=== PATIENT | male | born 1975 | race Caucasian/White ===

== ENCOUNTER 2017-03-04 10:29 | Inpatient (IN) | payer OTHER ==
--- NOTE | 2017-03-04 10:51 | PDOC ---
History of Present Illness - History of Present Illness Initial Comments: 03/04/17 11:14 The patient is a 42 year old male, with no significant past medical history, who presents to the emergency department from PCP office for hypertension and lower extremity edema today. The patient reports he is breathing fine, however , his family member at bedside states his chest is moving very fast. He denies chest pain, shortness of breath, headache and dizziness. He denies fever, chills, nausea, vomit, diarrhea and constipation. He denies dysuria, frequency, urgency and hematuria. Allergies: amoxicillin Social history: Pt denies toxic habits PCP - Dr. Nation <Lucia Herrera - Last Filed: 03/04/17 11:56> <Alisa Welch - Last Filed: 03/06/17 17:26> - General Chief Complaint: Blood Pressure Problem Stated Complaint: BLOOD PRESSURE PROBLEM Time Seen by Provider: 03/04/17 10:46 Past History <Lucia Herrera - Last Filed: 03/04/17 11:56> - Past Medical History Anemia: No Asthma: No Cancer: No Cardiac Disorders: No CVA: No COPD: No CHF: No Dementia: No Diabetes: No GI Disorders: No Disorders: No HTN: No Hypercholesterolemia: No Liver Disease: No Suicide Attempt (Hx): No Seizures: No Thyroid Disease: No - Surgical History Abdominal Surgery: No Appendectomy: No Cardiac Surgery: No Cholecystectomy: No Lung Surgery: No Neurologic Surgery: No Orthopedic Surgery: Yes (LIGAMENTS REPAIRED) - Psycho/Social/Smoking Cessation Hx Suicidal Ideation: No Smoking Status: No Smoking History: Never smoked Have you smoked in the past 12 months: No Number of Cigarettes Smoked Daily: 0 Hx Alcohol Use: No Drug/Substance Use Hx: No Substance Use Type: None <Alisa Welch - Last Filed: 03/06/17 17:26> - Past Medical History Allergies/Adverse Reactions: Allergies Allergy/AdvReac Type Severity Reaction Status Date / Time amoxicillin Allergy Verified 03/04/17 10:59 Home Medications: Ambulatory Orders NK [No Known Home Medication] 03/04/17 Review of Systems - Review of Systems Able to Perform ROS?: Yes Comments:: 03/04/17 11:15 GENERAL/CONSTITUTIONAL: No fever or chills. No weakness. HEAD, EYES, EARS, NOSE AND THROAT: No change in vision. No ear pain or discharge. No sore throat. CARDIOVASCULAR: (+) hypertensive. No chest pain or shortness of breath. RESPIRATORY: No cough, wheezing, or hemoptysis. GASTROINTESTINAL: No nausea, vomiting, diarrhea or constipation. GENITOURINARY: No dysuria, frequency, or change in urination. MUSCULOSKELETAL: No joint or muscle swelling or pain. No neck or back pain. SKIN: No rash NEUROLOGIC: No headache, vertigo, loss of consciousness, or change in strength/ sensation. ENDOCRINE: No increased thirst. No abnormal weight change. HEMATOLOGIC/LYMPHATIC: (+) lower extremity edema. No anemia, easy bleeding, or history of blood clots. ALLERGIC/IMMUNOLOGIC: No hives or skin allergy. <Lucia Herrera - Last Filed: 03/04/17 11:56> *Physical Exam - Vital Signs Last Vital Signs Temp Pulse Resp BP Pulse Ox 111 H 24 204/121 100 03/04/17 10:42 03/04/17 10:42 03/04/17 10:42 03/04/17 10:42 <Lucia Herrera - Last Filed: 03/04/17 11:56> - Vital Signs Last Vital Signs Temp Pulse Resp BP Pulse Ox 111 H 24 204/121 100 03/04/17 10:42 03/04/17 10:42 03/04/17 10:42 03/04/17 10:42 - Physical Exam Comments: GENERAL: Awake, alert, and fully oriented, in no acute distress HEAD: No signs of trauma EYES: PERRLA, EOMI, sclera anicteric, conjunctiva clear ENT: Auricles normal inspection, hearing grossly normal, nares patent, oropharynx clear without exudates. Moist mucosa NECK: Normal ROM, supple, no lymphadenopathy, JVD, or masses LUNGS: +Tachypnea. Breath sounds equal, clear to auscultation bilaterally. HEART: Tachycardic with regular rhythm, normal S1 and S2, no murmurs, rubs or gallops ABDOMEN: Soft, nontender, normoactive bowel sounds. No guarding, no rebound. No masses EXTREMITIES: Normal range of motion, 3+ pitting edema to BLE, to level of genitalia. No clubbing or cyanosis. No cords, erythema, or tenderness NEUROLOGICAL: Cranial nerves II through XII grossly intact. Normal speech, normal gait SKIN: Warm, Dry, normal turgor, no rashes or lesions noted. <Alisa Welch - Last Filed: 03/06/17 17:26> ED Treatment Course - LABORATORY CBC & Chemistry Diagram: 03/04/17 11:10 03/04/17 11:10 <Lucia Herrera - Last Filed: 03/04/17 11:56> - LABORATORY CBC & Chemistry Diagram: 03/05/17 06:00 03/06/17 05:35 <Alisa Welch - Last Filed: 03/06/17 17:26> Medical Decision Making - Medical Decision Making 03/04/17 11:56 Dr. Joann Huber was paged at the office requesting a doctor to doctor consult. I have been informed Dr. Jessenia Abraham is covering and will return the call. Dr. Jessenia Abraham returned the call at 11:58, the patient's case was discussed, and she accepts admission for patient's PCP Dr. Nation. <Lucia Herrera - Last Filed: 03/04/17 11:56> - Medical Decision Making Pt with history of HTN but questionable compliance with medication. Now presents with peripheral edema up to the groin. D/w Dr. Abraham. Patient is not in distress, vitals stable. I have started him on lasix. Stable for admission to med/surg. <Alisa Welch - Last Filed: 03/06/17 17:26> *DC/Admit/Observation/Transfer - Attestations Scribe Attestion: 03/04/17 11:16 Documentation prepared by Lucia Herrera, acting as medical billing coordinator for Alisa Welch MD <Lucia Herrera - Last Filed: 03/04/17 11:56> - Discharge Dispostion Admit: Yes <Alisa Welch - Last Filed: 03/06/17 17:26> Diagnosis at time of Disposition: Heart failure Qualifiers: Heart failure type: unspecified heart failure type Heart failure chronicity: unspecified heart failure chronicity Qualified Code(s): I50.9 - Heart failure, unspecified - Discharge Dispostion Condition at time of disposition: Stable - Referrals
[2017-03-04] MEDS ORDERED: FUROSEMIDE 40 MG/4 ML INJECTABLE VIAL IVPUSH ONE (11:04)
[2017-03-04] MEDS ORDERED: FUROSEMIDE 40 MG/4 ML INJECTABLE VIAL ONE (11:18)
[2017-03-04 11:25] LABS: BASOPHIL 0.5 % (0-2.0); EOSINOPHIL 0.1 % (0-4.5); MCH 30.4 pg (25.7-33.7); MCHC 32.9 g/dl (32.0-35.9); MEAN CELL VOLUME 92.2 fl (80-96); MEAN PLT VOLUME 8.8 fl (7.5-11.1); NEUTROPHILS 85.6 % (42.8-82.8); PLATELET COUNT 200 K/MM3 (134-434); RDW 14.8 % (11.9-15.9); WHITE BLOOD COUNT 10.4 K/mm3 (4.0-10.0)
[2017-03-04 11:42] LABS: ALBUMIN 3.3 g/dl (3.4-5.0); ANION GAP 7 (8-16); BILIRUBIN,TOTAL 1.2 mg/dL (0.2-1.0); CALCIUM 8.7 mg/dL (8.5-10.1); CO2 31 mmol/L (21-32); GLUCOSE,RANDOM 122 mg/dL (74-106); SGOT/AST 34 U/L (15-37); SGPT/ALT 44 U/L (12-78); TOT PROT 6.7 g/dl (6.4-8.2)
[2017-03-04 11:45] LABS: ALK PHOS 101 U/L (45-117); TROPONIN I 0.02 ng/ml (0.00-0.05)
[2017-03-04 11:48] LABS: URINE APPEARANCE CLEAR; URINE BILIRUBIN NEGATIVE (NEGATIVE); URINE BLOOD NEGATIVE (NEGATIVE); URINE COLOR COLORLESS; URINE GLUCOSE (UA) NEGATIVE (NEGATIVE); URINE KETONE NEGATIVE (NEGATIVE); URINE LEUK ESTERASE NEGATIVE (NEGATIVE); URINE NITRITE NEGATIVE (NEGATIVE); URINE UROBILINOGEN NEGATIVE mg/dL (0.2-1.0)
[2017-03-04 11:50] LABS: URINE PROTEIN 1+ (NEGATIVE)
[2017-03-04] MEDS ORDERED: LABETALOL HCL 5 MG/1 ML (100MG/20 ML VIAL) IVPUSH ONE (11:59)
--- NOTE | 2017-03-04 12:00 | HP ---
Admitting History and Physical - Primary Care Physician PCP: Clint Nation - Admission Chief Complaint: HTN urgency History of Present Illness: ER HISTORY - History of Present Illness Initial Comments: 03/04/17 11:14 The patient is a 42 year old male, with no significant past medical history, who presents to the emergency department from PCP office for hypertension and lower extremity edema today. The patient reports he is breathing fine, however , his family member at bedside states his chest is moving very fast. He denies chest pain, shortness of breath, headache and dizziness. He denies fever, chills, nausea, vomit, diarrhea and constipation. He denies dysuria, frequency, urgency and hematuria. Allergies: amoxicillin Social history: Pt denies toxic habits PCP - Dr. Nation Pt examined by me in the ER Mother at his side Pt lives with his mother. Went to see his PMD- DR Nation today who sent him here for HTN urgency and lower extremities edema. Pt admits that he gets SOB when he climbs stairs, no orthopnea or PND. I spoke with his PMD-- apparently had seen him 2014 for elevated BP and pt had seen a radiation protection technician in [facility]- Dr Juarez, was on Carvedilol and Lisinopril at that time and has not been on meds for the last 6 months because he " felt fine" No headaches, visual disturbances, chest pain History Source: Patient, Family Member, Medical Record Limitations to Obtaining History: No Limitations - Past Medical History Cardiovascular: Yes: HTN - Smoking History Smoking history: Never smoked Have you smoked in the past 12 months: No Aproximately how many cigarettes per day: 0 - Alcohol/Substance Use Hx Alcohol Use: No Home Medications - Allergies Allergies/Adverse Reactions: Allergies Allergy/AdvReac Type Severity Reaction Status Date / Time amoxicillin Allergy Verified 03/04/17 10:59 - Home Medications Home Medications: Ambulatory Orders NK [No Known Home Medication] 03/04/17 Review of Systems - Review of Systems Constitutional: denies: Chills, Fever, Loss of Appetite, Weakness Cardiovascular: reports: Edema, Shortness of Breath. denies: Chest Pain, Palpitations Respiratory: reports: Exercise Intolerance, SOB on Exertion. denies: Cough, Hemoptysis, Orthopnea, PND Neurological: denies: Dizziness, Headache Physical Examination Vital Signs: Vital Signs Temperature Pulse Rate 111 H 03/04/17 10:42 Respiratory Rate 24 03/04/17 10:42 Blood Pressure 204/121 03/04/17 10:42 O2 Sat by Pulse Oximetry (%) 100 03/04/17 11:24 Constitutional: Yes: No Distress, Calm Cardiovascular: Yes: Regular Rate and Rhythm, Gallop. No: JVD Respiratory: Yes: CTA Bilaterally Gastrointestinal: Yes: Normal Bowel Sounds, Soft, Abdomen, Obese. No: Distention, Tenderness Renal/: Yes: Scrotal Edema Edema: Yes Edema: LLE: 3+, RLE: 3+ Psychiatric: Yes: Alert, Oriented Labs: CBC, BMP 03/04/17 11:10 03/04/17 11:10 Imaging - Results Chest X-ray: Image Reviewed (clear, no congestion) EKG: Image Reviewed (Sinus tachycardia, LAFB) Problem List - Problems (1) Heart failure Code(s): I50.9 - HEART FAILURE, UNSPECIFIED Qualifiers: Heart failure type: unspecified heart failure type Heart failure chronicity: unspecified heart failure chronicity Qualified Code(s): I50.9 - Heart failure, unspecified (2) Hypertensive urgency Code(s): I16.0 - HYPERTENSIVE URGENCY (3) Noncompliance Code(s): Z91.19 - PATIENT'S NONCOMPLIANCE W OTH MEDICAL TREATMENT AND REGIMEN Assessment/Plan PLAN pt known to be non -compliant per PMD Received IV lasix in ER and IV labetolol Start Toprol and enalapril Monitor BP IV lasix daily, check I and o and daily weights Cardiology evaluation Echo ordered Pt had previous admission here in 2011 for similar reasons- had a nuclear stress test - no ischemia spoke with ER attending Time spent 40 min
[2017-03-04 12:01] LABS: INR 1.13 (0.82-1.09); PROTHROMBIN TIME (PATIENT) 12.5 SEC (9.98-11.88)
[2017-03-04 12:15] LABS: URINE WBC <1 /hpf (3-5)
[2017-03-04] MEDS ORDERED: LABETALOL HCL 5 MG/1 ML (200MG/40ML VIAL) IVPB ONE (12:26)
[2017-03-04 13:02] VITALS: BMI 29.2
--- NOTE | 2017-03-04 13:02 | EKG ---
Test Reason : Blood Pressure : / mmHG Vent. Rate : 107 BPM Atrial Rate : 107 BPM P-R Int : 142 ms QRS Dur : 138 ms QT Int : 384 ms P-R-T Axes : 041 056 001 degrees QTc Int : 512 ms SINUS TACHYCARDIA POSSIBLE LEFT ATRIAL ENLARGEMENT NON-SPECIFIC INTRA-VENTRICULAR CONDUCTION BLOCK CANNOT RULE OUT SEPTAL INFARCT , AGE UNDETERMINED ABNORMAL ECG WHEN COMPARED WITH ECG OF 07-APR-2012 11:47, [place] INTERVAL HAS INCREASED NON-SPECIFIC INTRA-VENTRICULAR CONDUCTION BLOCK HAS REPLACED RIGHT BUNDLE BRANCH BLOCK MINIMAL CRITERIA FOR SEPTAL INFARCT ARE NOW PRESENT Confirmed by JADA BARBOSA MD ([id number]) on 03/04/2017 1:01:51 PM Referred By: Confirmed By:JADA BARBOSA MD
[2017-03-04] MEDS ORDERED: ENALAPRIL MALEATE 10 MG TABLET (FP) PO SCH (13:12)
--- NOTE | 2017-03-04 16:09 | CON.CARD ---
Consult Consult Specialty:: Cardiology Referred by:: Dr. Abraham Reason for Consultation:: CHF and HTN - History of Present Illness Chief Complaint: Increased edema and CASPER x 2 weeks History of Present Illness: 42M w/ PMH HTN, non-compliant, presented to PMD office today w/ 2 weeks CASPER and b/l LE edema and was referred to ER. Denies chest pain, PND, orthopnea. 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 CXR read as "normal" but on my read he has cardiomegaly w/ mild increased PVC. He was given IV Labetalol and IV Lasix in ER. - History Source History Provided By: Patient, Medical Record Limitations to Obtaining History: Other (history obtained in Urdu) - Past Medical History Cardio/Vascular: Yes: HTN, Other ("heart murmur") Gastrointestinal: No: Ascites, Cancer, Constipation, Crohn's Disease, Diverticulitis, Diverticulosis, Esophageal Varices, Gastritis, GERD, GI Bleed, Hemorrhoids, Hiatal Hernia, Inflamatory Bowel Disease, Irritable Bowel Disease, Pancreatitis, Peptic Ulcer Disease, Ulcerative Colitis, Other Renal/: No: Renal Failure, Renal Inusuff, BPH, Cancer, Hematuria, Hemodialysis , Neurogenic Bladder, Renal Calculi, UTI, Other Heme/Onc: No: Anemia, B12 Deficiency, Bleeding Disorder, Cancer, Current Chemotherapy, Current Radiation Therapy, Hemochromatosis, Hypercoaguable State, Myeloproliferative Synd, Sickle Cell Disease, Sickle Cell Trait, Thrombocytopenia, Other Infectious Disease: No: AIDS, C-Diff, Herpes Zoster, HIV, MRSA, STD's, Tuberculosis, VREF, Other Psych: No: Addictions, Anxiety, Bipolar, Depression, Panic, Psychosis, Schizophrenia, Other Musculoskeletal: No: Bursitis, Chronic low back pain, Hemiparesis, Hemiplegia, Osteoarthritis, Paraplegia, Other Rheumatology: No: Fibromyalgia, Gout, Lupus, Rheumatoid Arthritis, Sarcoidosis, Vasculitis, Other Endocrine: No: [place]'s Disease, Curtis's Disease, Diabetes Insipidus, Diabetes Mellitus, Hyperparathyroidism, Hyperthyroidism, Hypothyroidism, Osteopenia, SIADH, Other Dermatology: No: Basal Cell, Cellulitis, Eczema, Melanoma, Psoriasis, Squamous Cell, Other - Alcohol/Substance Use Hx Alcohol Use: No - Smoking History Smoking history: Never smoked Have you smoked in the past 12 months: No Aproximately how many cigarettes per day: 0 - Social History Usual Living Arrangement: Other (with family) History of Recent Travel: No Home Medications - Allergies Allergies/Adverse Reactions: Allergies Allergy/AdvReac Type Severity Reaction Status Date / Time amoxicillin Allergy Verified 03/04/17 10:59 - Home Medications Home Medications: Ambulatory Orders NK [No Known Home Medication] 03/04/17 Family Disease History - Family Disease History Family History: Unremarkable (not pertinent to this presentation) Review of Systems Findings/Remarks: see HPI - Review of Systems Constitutional: denies: No Symptoms, Chills, Diaphoresis, Fever, Lethargy, Loss of Appetite, Malaise, Night Sweats, Unintentional Wgt. Loss, Weakness, Other Eyes: denies: No Symptoms, Blind Spots, Blurred Vision, Double Vision, Eye Pain , Floaters, Photophobia, Recent Change in Vision, Other HENT: denies: No Symptoms, Difficult Swallowing, Ear Discharge, Ear Pain, Epistaxis, Gingival Bleeding, Hearing Loss, Mouth Swelling, Nasal Congestion, Ocular Prosthesis, Throat Pain, Toothache, Ringing in Ears, Other Neck: denies: No Symptoms, Decreased ROM, Lumps, Pain on Movement, Stiffness, Swollen Glands, Tenderness, Other Cardiovascular: reports: Edema, Shortness of Breath Respiratory: denies: No Symptoms, Cough, Exercise Intolerance, Hemoptysis, Orthopnea, PND, Snoring, SOB, SOB on Exertion, Wheezing, Other Gastrointestinal: denies: No Symptoms, Abdominal Pain, Bloating, Constipation, Diarrhea, Dysphagia, Indigestion, Melena, Nausea, Rectal Bleeding, Vomiting, Vomiting Blood, Other Genitourinary: denies: No Symptoms, Burning, Discharge, Dysuria, Flank Pain, Frequency, Hematuria, Incontinence, Lesions, Menses, Pain, Testicular Mass, Testicular Pain, Testicular Swelling, Urgency, Vaginal Bleeding, Other Breasts: denies: No Symptoms Reported, See HPI, Breast Implants, Discharge from Nipple, Lumps, Pain, Skin Changes, Other Musculoskeletal: denies: No Symptoms, Back Pain, Crepitus, Decreased ROM, Extremity Pain, Joint Pain, Joint Swelling, Muscle Pain, Muscle Cramps, Muscle Weakness, Other Integumentary: denies: No Symptoms, Blister, Bruising, Change in Color, Eczema, Erythema, Incision, Lesions, Lump, Pallor, Pruritis, Rash, Wound, Other Neurological: denies: No Symptoms, Change in LOC, Change in Speech, Confusion, Dizziness, Headache, Incoordination, Numbness, Parasthesia, Pre-Existing Deficit , Seizure, Syncope, Tremors, Unsteady Gait, Weakness, Other Endocrine: denies: No Symptoms, Excessive Sweating, Flushing, Increased Hunger, Increased Thirst, Intolerance to Cold, Intolerance to Heat, Unexplained Weight Gain, Unexplained Weight Loss, Other Psychiatric: denies: No Symptoms, Altered Sleep Pattern, Anxiety, Depression, Hallucinations, Panic, Paranoia, Suicidal, Other Vital Signs: Vital Signs Temperature 97.7 F 03/04/17 13:44 Pulse Rate 93 H 03/04/17 13:44 Respiratory Rate 20 03/04/17 13:44 Blood Pressure 159/107 03/04/17 13:44 O2 Sat by Pulse Oximetry (%) 97 03/04/17 12:39 Constitutional: Yes: No Distress, Calm Eyes: Yes: Conjunctiva Clear, EOM Intact HENT: Yes: Atraumatic, Normocephalic Neck: Yes: Supple, Trachea Midline Respiratory: Yes: CTA Bilaterally Gastrointestinal: Yes: Soft JVD: No Carotid Bruit: No PMI: Non-Displaced Heart Sounds: Yes: S1, S2 (regular) Murmur: Yes: Systolic Murmur (2/6 RSB) Edema: Yes Edema: RUE: 2+, LLE: 2+ Peripheral Pulses WNL: Yes Neurological: Yes: Alert, Oriented ...Motor Strength: WNL Psychiatric: Yes: WNL - Other Data Labs, Other Data: INR, PTT INR 1.13 (0.82-1.09) 03/04/17 11:10 Laboratory Tests 03/04/17 03/04/17 11:10 11:10 WBC 10.4 H RBC 4.70 Hgb 14.3 Hct 43.3 MCV 92.2 Plt Count 200 Neutrophils % 85.6 H D Sodium 140 Potassium 3.8 Chloride 102 Carbon Dioxide 31 Anion Gap 7 L BUN 20 H D Creatinine 1.0 Creat Clearance w eGFR > 60 Random Glucose 122 H D Calcium 8.7 Total Bilirubin 1.2 H AST 34 D ALT 44 D Alkaline Phosphatase 101 D Creatine Kinase 101 Troponin I 0.02 B-Natriuretic Peptide 5221.64 H Total Protein 6.[address] at 107bpm, RBBB RBBB old, seen in 2012. Had echo and nuclear stress test here in 2012 reviewed in EMR: normal. Echo: Pending Imaging - Results X-ray: Image Reviewed EKG: Image Reviewed Problem List - Problems (1) Heart failure Code(s): I50.9 - HEART FAILURE, UNSPECIFIED Qualifiers: Heart failure type: unspecified heart failure type Heart failure chronicity: unspecified heart failure chronicity Qualified Code(s): I50.9 - Heart failure, unspecified (2) Hypertensive urgency Code(s): I16.0 - HYPERTENSIVE URGENCY (3) Noncompliance Code(s): Z91.19 - PATIENT'S NONCOMPLIANCE W OTH MEDICAL TREATMENT AND REGIMEN Assessment/Plan IMP: Hypertensive urgency in setting medication non-adherence Acute on chronic diastolic CHF, probably due to uncontrolled HTN RBBB, chronic Murmur REC: 1. Hypertensive urgency: -Agree w/ initiation of Toprol and WHITNEY-I with titration as needed for goal BP 140/90 2. Suspected Acute on Chronic Diastolic CHF:due to elevated BP -Echo -BP control -Lasix 40mg IV daily, with daily monitoring of electrolytes and renal function -Repeat stress test when euvolemic and BP controlled 3. RBBB: -Chronic, seen on ECG 2011. -Echo 4. Murmur: -For echo to evaluate severity of valve disease Thanks.
[2017-03-05] MEDS ORDERED: METOPROLOL SUCCINATE 25 MG TAB.SR.24H (FP) PO ONE (06:00)
[2017-03-05 07:30] LABS: MCH 30.3 pg (25.7-33.7); MEAN CELL VOLUME 91.7 fl (80-96); MEAN PLT VOLUME 8.8 fl (7.5-11.1); PLATELET COUNT 193 K/MM3 (134-434); WHITE BLOOD COUNT 7.7 K/mm3 (4.0-10.0)
[2017-03-05 07:46] LABS: ALBUMIN 2.8 g/dl (3.4-5.0); ALK PHOS 69 U/L (45-117); ANION GAP 10 (8-16); BILIRUBIN,TOTAL 1.4 mg/dL (0.2-1.0); CALCIUM 8.5 mg/dL (8.5-10.1); CHOLESTEROL 139 mg/dL (50-200); CO2 28 mmol/L (21-32); CREATININE 0.9 mg/dL (0.7-1.3); GLUCOSE,RANDOM 98 mg/dL (74-106); SGOT/AST 30 U/L (15-37); SGPT/ALT 37 U/L (12-78); TOT PROT 5.7 g/dl (6.4-8.2)
[2017-03-05 08:05] LABS: LDL CHOLESTEROL (ONLY SJRH) 76 mg/dL (5-100)
[2017-03-05 08:11] LABS: THYROID STIMULATING HORMONE 1.42 uIU/ml (0.358-3.74)
--- NOTE | 2017-03-05 08:27 | PN ---
Progress Note, Physician Chief Complaint: Feeling "better" Echo: Now with severe LV dysfunction, moderate AR, Moderate to severe MR (all new from 2012) BP remains markedly elevated. - Current Medication List Current Medications: Active Medications Enalapril Maleate (Vasotec -) 10 mg PO DAILY [facility] Furosemide (Lasix Injection -) 40 mg IVPB DAILY [facility] Metoprolol Succinate (Toprol Xl -) 25 mg PO DAILY [facility] - Objective Vital Signs: Vital Signs Temperature 98.4 F 03/05/17 05:58 Pulse Rate 106 H 03/05/17 05:58 Respiratory Rate 20 03/05/17 05:58 Blood Pressure 179/119 03/05/17 05:58 O2 Sat by Pulse Oximetry (%) 96 03/04/17 21:00 Constitutional: Yes: No Distress, Calm Eyes: Yes: Conjunctiva Clear Cardiovascular: Yes: Regular Rate and Rhythm Respiratory: Yes: Other (slight decreased breath sounds at bases.) Gastrointestinal: Yes: Soft Edema: Yes Edema: LLE: 1+, RLE: 1+ Neurological: Yes: Alert, Oriented ...Motor Strength: WNL Labs: CBC, BMP 03/05/17 06:00 03/05/17 06:00 INR, PTT INR 1.13 (0.82-1.09) 03/04/17 11:10 Selected Entries 03/04/17 03/05/17 03/05/17 22:00 01:45 05:58 Blood Pressure 166/108 166/108 179/119 Laboratory Tests 03/05/17 03/05/17 06:00 06:00 WBC 7.7 Hgb 13.1 Plt Count 193 Sodium 144 Potassium 3.8 BUN 17 Creatinine 0.9 AST 30 Total LDL Cholesterol 76 D Problem List - Problems (1) Heart failure Code(s): I50.9 - HEART FAILURE, UNSPECIFIED Qualifiers: Heart failure type: unspecified heart failure type Heart failure chronicity: unspecified heart failure chronicity Qualified Code(s): I50.9 - Heart failure, unspecified (2) Hypertensive urgency Code(s): I16.0 - HYPERTENSIVE URGENCY (3) Noncompliance Code(s): Z91.19 - PATIENT'S NONCOMPLIANCE W OTH MEDICAL TREATMENT AND REGIMEN Assessment/Plan IMP: Hypertensive urgency in setting medication non-adherence Acute on chronic diastolic CHF, probably due to uncontrolled HTN RBBB, chronic Murmur REC: 1. Hypertensive urgency: blood pressure remains elevated above goal -In light of decompensated CHF and newly found severe LV dysfunction (likely due to uncontrolled chronic HTN), will hold off on titrating beta aleena until more euvolemic -Increase enalapril to 10mg BID 2. Acute on chronic systolic CHF: newly found severe LV dysfx -BP control, will titrate Enalapril -Lasix 40mg IV daily, with daily monitoring of electrolytes and renal function -Repeat stress test when euvolemic and BP controlled -Transfer to telemetry (CHF, LV dysfx, moderate to severe MR) 3. RBBB: -Chronic, seen on ECG 2011. -Echo 4. Murmur: newly found moderate to severe MR and cardiomyopathy -MR severity may be overestimated in this volume overloaded, hypertensive state -Should be repeated when BP controlled and euvolemic as it may improve with optimized hemodynamics.
[2017-03-05] MEDS: ENALAPRIL MALEATE 10 MG TABLET (FP) PO SCH ×2 (09:08→21:26)
[2017-03-05] MEDS: FUROSEMIDE 40 MG/4 ML INJECTABLE VIAL IVPB SCH (09:08)
[2017-03-05 09:44] LABS: MAGNESIUM 1.8 mg/dL (1.8-2.4)
[2017-03-05] MEDS ORDERED: ENALAPRIL MALEATE 10 MG TABLET (FP) PO SCH (10:00)
[2017-03-05] MEDS ORDERED: METOPROLOL SUCCINATE 25 MG TAB.SR.24H (FP) PO SCH (10:00)
[2017-03-05] MEDS ORDERED: POTASSIUM CHLORIDE TABS 20 MEQ TABLET.ER (FP) PO SCH (10:00)
--- NOTE | 2017-03-05 11:50 | PN ---
Progress Note, Physician Chief Complaint: no distress has a dry cough no SOB - Current Medication List Current Medications: Active Medications Amlodipine Besylate (Norvasc -) 5 mg PO DAILY [facility] Enalapril Maleate (Vasotec -) 10 mg PO BID [facility] Last Admin: 03/05/17 09:08 Dose: 10 mg Furosemide (Lasix Injection -) 40 mg IVPB DAILY [facility] Last Admin: 03/05/17 09:08 Dose: 40 mg Metoprolol Succinate (Toprol Xl -) 25 mg PO DAILY [facility] Last Admin: 03/05/17 09:08 Dose: 25 mg Potassium Chloride (K-Dur -) 20 meq PO DAILY [facility] Last Admin: 03/05/17 09:08 Dose: 20 meq - Objective Vital Signs: Vital Signs Temperature 98.2 F 03/05/17 09:00 Pulse Rate 101 H 03/05/17 11:05 Respiratory Rate 18 03/05/17 09:00 Blood Pressure 165/119 03/05/17 11:05 O2 Sat by Pulse Oximetry (%) 97 03/05/17 09:00 Constitutional: Yes: No Distress, Calm Cardiovascular: Yes: Regular Rate and Rhythm, Gallop Respiratory: Yes: CTA Bilaterally Gastrointestinal: Yes: Normal Bowel Sounds, Soft, Abdomen, Obese. No: Distention, Tenderness Edema: Yes Edema: LLE: 2+, RLE: 2+ Labs: CBC, BMP 03/05/17 06:00 03/05/17 06:00 INR, PTT INR 1.13 (0.82-1.09) 03/04/17 11:10 Problem List - Problems (1) Heart failure Code(s): I50.9 - HEART FAILURE, UNSPECIFIED Qualifiers: Heart failure type: unspecified heart failure type Heart failure chronicity: unspecified heart failure chronicity Qualified Code(s): I50.9 - Heart failure, unspecified (2) Hypertensive urgency Code(s): I16.0 - HYPERTENSIVE URGENCY (3) Noncompliance Code(s): Z91.19 - PATIENT'S NONCOMPLIANCE W OTH MEDICAL TREATMENT AND REGIMEN (4) Mitral regurgitation Code(s): I34.0 - NONRHEUMATIC MITRAL (VALVE) INSUFFICIENCY Assessment/Plan PLAN pt known to be non -compliant per PMD Echo noted spoke with Dr Barriga BP meds increased , Norvasc added Will need telemetry continue with IV lasix
[2017-03-05] MEDS: amLODIPine BESYLATE 5 MG TABLET (FP) PO SCH (11:59)
[2017-03-05] MEDS: MAGNESIUM OXIDE 400 MG TABLET (FP) PO SCH ×2 (13:29→21:26)
[2017-03-05] MEDS: hydrALAZINE HCL 10 MG TABLET PO PRN ×2 (13:29→21:26)
--- NOTE | 2017-03-06 08:25 | PN ---
Progress Note, Physician Chief Complaint: no complaints No chest pain, headache, SOB TELE: NSR. BP remains elevated - Current Medication List Current Medications: Active Medications Amlodipine Besylate (Norvasc -) 5 mg PO DAILY [facility] Last Admin: 03/05/17 11:59 Dose: 5 mg Enalapril Maleate (Vasotec -) 10 mg PO BID [facility] Last Admin: 03/05/17 21:26 Dose: 10 mg Enoxaparin Sodium (Lovenox -) 40 mg SQ DAILY [facility] Furosemide (Lasix Injection -) 40 mg IVPB DAILY [facility] Last Admin: 03/05/17 09:08 Dose: 40 mg Hydralazine HCl (Apresoline -) 10 mg PO TID PRN PRN Reason: HYPERTENSION Last Admin: 03/05/17 21:26 Dose: 10 mg Magnesium Oxide (Mag-Ox -) 400 mg PO BID [facility] Last Admin: 03/05/17 21:26 Dose: 400 mg Metoprolol Succinate (Toprol Xl -) 25 mg PO DAILY [facility] Last Admin: 03/05/17 09:08 Dose: 25 mg Potassium Chloride (K-Dur -) 20 meq PO DAILY [facility] Last Admin: 03/05/17 09:08 Dose: 20 meq - Objective Vital Signs: Vital Signs Temperature 97.3 F L 03/06/17 06:00 Pulse Rate 74 03/06/17 06:00 Respiratory Rate 20 03/06/17 06:00 Blood Pressure 163/101 03/06/17 06:00 O2 Sat by Pulse Oximetry (%) 99 03/05/17 21:00 Constitutional: Yes: No Distress, Calm Eyes: Yes: Conjunctiva Clear, EOM Intact Neck: Yes: Supple Cardiovascular: Yes: Regular Rate and Rhythm, S4 Respiratory: Yes: CTA Bilaterally Gastrointestinal: Yes: Soft Edema: Yes Edema: LLE: 1+, RLE: 1+ Neurological: Yes: Alert, Oriented ...Motor Strength: WNL Labs: CBC, BMP 03/05/17 06:00 INR, PTT INR 1.13 (0.82-1.09) 03/04/17 11:10 Laboratory Tests 03/06/17 05:35 Sodium Pending Potassium Pending Chloride Pending BUN Pending Creatinine Pending Magnesium Pending - ....Imaging Other: Image Reviewed Problem List - Problems (1) Heart failure Code(s): I50.9 - HEART FAILURE, UNSPECIFIED Qualifiers: Heart failure type: unspecified heart failure type Heart failure chronicity: unspecified heart failure chronicity Qualified Code(s): I50.9 - Heart failure, unspecified (2) Hypertensive urgency Code(s): I16.0 - HYPERTENSIVE URGENCY (3) Noncompliance Code(s): Z91.19 - PATIENT'S NONCOMPLIANCE W OTH MEDICAL TREATMENT AND REGIMEN Assessment/Plan IMP: Hypertensive urgency in setting medication non-adherence Acute on chronic diastolic CHF, probably due to uncontrolled HTN RBBB, chronic Murmur REC: 1. Hypertensive urgency: blood pressure remains elevated above goal -Switch Toprol to Coreg, has added alpha effect. Titrate as BP and heart rate allow. -Add Aldactone, d/c K+ suppliment. -Continue enalapril to 10mg BID -Will also add low dose hydralazine 10mg BID with hold parameters for further afterload reduction. 2. Acute on chronic systolic CHF: newly found severe LV dysfx -Continue Enalapril. Adding Aldactone. Switching Toprol to Coreg. -Lasix 40mg IV daily, with daily monitoring of electrolytes and renal function -Repeat stress test when euvolemic and BP controlled -Telemetry in last 24 hours NSR. 3. RBBB: -Chronic, seen on ECG 2011. -No further work up needed, will observe on tele while being actively diuresed. 4. Murmur: newly found moderate to severe MR and cardiomyopathy -MR severity may be overestimated in this volume overloaded, hypertensive state -Should be repeated when BP controlled and euvolemic as it may improve with optimized hemodynamics. -Adding Aldactone and hydralazine for more aggressive BP control and afterload reduction to help diurese.
[2017-03-06 08:30] LABS: ANION GAP 8 (8-16); CALCIUM 8.6 mg/dL (8.5-10.1); CO2 32 mmol/L (21-32); GLUCOSE,RANDOM 86 mg/dL (74-106); MAGNESIUM 2.2 mg/dL (1.8-2.4)
[2017-03-06 08:33] LABS: CREATININE 0.9 mg/dL (0.7-1.3)
[2017-03-06] MEDS: hydrALAZINE HCL 10 MG TABLET PO SCH ×2 (09:45→21:41)
[2017-03-06] MEDS: FUROSEMIDE 40 MG/4 ML INJECTABLE VIAL IVPB SCH (09:45)
[2017-03-06] MEDS: ENALAPRIL MALEATE 10 MG TABLET (FP) PO SCH ×2 (09:45→21:40)
[2017-03-06] MEDS: SPIRONOLACTONE 25 MG TABLET (FP) PO SCH (09:45)
[2017-03-06] MEDS: MAGNESIUM OXIDE 400 MG TABLET (FP) PO SCH ×2 (09:46→21:40)
[2017-03-06] MEDS: amLODIPine BESYLATE 5 MG TABLET (FP) PO SCH (09:46)
[2017-03-06] MEDS: ENOXAPARIN NA (PORCINE) 40 MG/0.4 ML DISP.SYRIN SQ SCH (09:46)
[2017-03-06] MEDS: CARVEDILOL 6.25 MG TABLET (FP) PO SCH ×2 (09:46→21:40)
--- NOTE | 2017-03-06 12:39 | PN ---
Progress Note (short form) - Note Progress Note: Pt seen/ examined chart reviewed pt has no complains denies cp/ sob. bp remains elevated cardiology f/u noted Vital Signs Temp 98 F 03/06/17 09:42 Pulse 100 H 03/06/17 09:42 Resp 20 03/06/17 09:42 BP 163/112 03/06/17 09:42 Pulse Ox 99 03/06/17 09:00 Intake & Output 03/05/17 03/06/17 03/06/17 23:59 11:59 23:59 Intake Total 550 Balance 550 Weight 162 lb 6.4 oz Intake: Oral 550 Other: Voiding Method Toilet Toilet # Unmeasured Voids Void 4 Bowel Movement Yes # Bowel Movements 2 Weight Measurement Method Standing Scale Active Medications Amlodipine Besylate (Norvasc -) 10 mg PO DAILY [facility] Carvedilol (Coreg -) 6.25 mg PO BID [facility] Last Admin: 03/06/17 09:46 Dose: 6.25 mg Enalapril Maleate (Vasotec -) 10 mg PO BID [facility] Last Admin: 03/06/17 09:45 Dose: 10 mg Enoxaparin Sodium (Lovenox -) 40 mg SQ DAILY [facility] Last Admin: 03/06/17 09:46 Dose: 40 mg Furosemide (Lasix Injection -) 40 mg IVPB DAILY [facility] Last Admin: 03/06/17 09:45 Dose: 40 mg Hydralazine HCl (Apresoline -) 10 mg PO BID [facility] Last Admin: 03/06/17 09:45 Dose: 10 mg Magnesium Oxide (Mag-Ox -) 400 mg PO BID [facility] Last Admin: 03/06/17 09:46 Dose: 400 mg Spironolactone (Aldactone -) 25 mg PO DAILY [facility] Last Admin: 03/06/17 09:45 Dose: 25 mg CBC, BMP 03/05/17 06:00 03/06/17 05:35 Physical Exam. Constitutional: Yes: No Distress, Calm/ comfortable Cardiovascular: Yes: Regular Rate and Rhythm, Respiratory: Yes: CTA Bilaterally Gastrointestinal: Yes: Normal Bowel Sounds, Soft, Abdomen, Obese. No: Distention, Tenderness Edema: Yes Edema: LLE: 2+, RLE: 2+ Problem List - Problems (1) Heart failure Code(s): I50.9 - HEART FAILURE, UNSPECIFIED Qualifiers: Heart failure type: unspecified heart failure type Heart failure chronicity: unspecified heart failure chronicity Qualified Code(s): I50.9 - Heart failure, unspecified (2) Hypertensive urgency Code(s): I16.0 - HYPERTENSIVE URGENCY (3) Noncompliance Code(s): Z91.19 - PATIENT'S NONCOMPLIANCE W OTH MEDICAL TREATMENT AND REGIMEN (4) Mitral regurgitation Code(s): I34.0 - NONRHEUMATIC MITRAL (VALVE) INSUFFICIENCY Assessment/Plan bp remains elevated increase amlodipine started on hydralazine monitor check u/s kidneys/ and 24 hr urine to r/o secondary causes. discussed with pt. will follow.
--- NOTE | 2017-03-06 18:00 | CONSULT ---
Consult Consult Specialty:: Nephrology Reason for Consultation:: HTN - History of Present Illness Chief Complaint: sent in from doctors office for edema History of Present Illness: Pt is a 42 year old male who was sent in from his primary doctors office for lower extremity edema and shortness of breath. He denies having past medical history. He denies shortness of breath. He says he has had lower extremity edema for some time. He denies headaches. He denies dysuria or hematuria. He denies fevers or chills. I was called to evaluate him for HTN and possible renal artery stenosis. - History Source History Provided By: Patient, Medical Record - Past Medical History Cardio/Vascular: Yes: HTN, Murmur - Alcohol/Substance Use Hx Alcohol Use: No - Smoking History Smoking history: Never smoked Have you smoked in the past 12 months: No Aproximately how many cigarettes per day: 0 - Social History Usual Living Arrangement: Other (with family) History of Recent Travel: No Home Medications - Allergies Allergies/Adverse Reactions: Allergies Allergy/AdvReac Type Severity Reaction Status Date / Time amoxicillin Allergy Verified 03/04/17 10:59 - Home Medications Home Medications: Ambulatory Orders NK [No Known Home Medication] 03/04/17 Family Disease History - Family Disease History Family History: Denies Review of Systems - Review of Systems Constitutional: reports: No Symptoms Eyes: reports: No Symptoms HENT: reports: No Symptoms Neck: reports: No Symptoms Cardiovascular: reports: Edema, Shortness of Breath Respiratory: reports: SOB on Exertion Gastrointestinal: reports: No Symptoms Genitourinary: reports: No Symptoms Musculoskeletal: reports: No Symptoms Integumentary: reports: No Symptoms Neurological: reports: No Symptoms Endocrine: reports: No Symptoms Hematology/Lymphatic: reports: No Symptoms Psychiatric: reports: No Symptoms Physical Exam Vital Signs: Vital Signs Temperature 98.2 F 03/06/17 15:16 Pulse Rate 88 03/06/17 15:16 Respiratory Rate 20 03/06/17 15:16 Blood Pressure 150/106 03/06/17 15:16 O2 Sat by Pulse Oximetry (%) 99 03/06/17 09:00 Constitutional: Yes: Calm Eyes: Yes: Conjunctiva Clear HENT: Yes: Atraumatic Neck: Yes: Supple Cardiovascular: Yes: S1, S2 Respiratory: Yes: CTA Bilaterally Gastrointestinal: Yes: Soft Renal/: Yes: WNL Musculoskeletal: Yes: WNL Edema: Yes Edema: LLE: 1+, RLE: 1+ Neurological: Yes: Oriented Psychiatric: Yes: Oriented Labs: CBC, BMP 03/05/17 06:00 03/06/17 05:35 Laboratory Tests 03/04/17 03/04/17 03/05/17 11:10 11:32 06:00 Sodium Potassium Chloride Creatinine 1.0 0.9 Urine Color Colorless Urine Appearance Clear Urine pH 7.0 Ur Specific [place] 1.010 Urine Protein 1+ H Urine Glucose (UA) Negative Urine Ketones Negative Urine Blood Negative Urine Nitrite Negative Urine Bilirubin Negative Urine Urobilinogen Negative Ur Leukocyte Esterase Negative Urine RBC None 03/06/17 05:35 Sodium 144 Potassium 4.2 Chloride 104 Creatinine 0.9 Urine Color Urine Appearance Urine pH Ur Specific [place] Urine Protein Urine Glucose (UA) Urine Ketones Urine Blood Urine Nitrite Urine Bilirubin Urine Urobilinogen Ur Leukocyte Esterase Urine RBC Imaging - Results Chest X-ray: Report Reviewed Ultrasound: Report Reviewed (right kidney 8.6 cm, left kidney 11.4 cm) Problem List - Problems (1) Heart failure Code(s): I50.9 - HEART FAILURE, UNSPECIFIED Qualifiers: Heart failure type: unspecified heart failure type Heart failure chronicity: unspecified heart failure chronicity Qualified Code(s): I50.9 - Heart failure, unspecified (2) Hypertensive urgency Code(s): I16.0 - HYPERTENSIVE URGENCY (3) Mitral regurgitation Code(s): I34.0 - NONRHEUMATIC MITRAL (VALVE) INSUFFICIENCY (4) Noncompliance Code(s): Z91.19 - PATIENT'S NONCOMPLIANCE W OTH MEDICAL TREATMENT AND REGIMEN (5) Proteinuria Code(s): R80.9 - PROTEINURIA, UNSPECIFIED (6) CKD (chronic kidney disease) Code(s): N18.9 - CHRONIC KIDNEY DISEASE, UNSPECIFIED Assessment/Plan Current Medications Generic Name Dose Route Start Last Admin Trade Name Freq PRN Reason Stop Dose Admin Amlodipine Besylate 10 mg 03/06/17 12:34 Norvasc - PO DAILY [facility] Carvedilol 6.25 mg 03/06/17 10:00 03/06/17 09:46 Coreg - PO 6.25 mg BID [facility] Administration Enalapril Maleate 10 mg 03/05/17 10:00 03/06/17 09:45 Vasotec - PO 10 mg BID [facility] Administration Enoxaparin Sodium 40 mg 03/06/17 10:00 03/06/17 09:46 Lovenox - SQ 40 mg DAILY [facility] Administration Furosemide 40 mg 03/05/17 10:00 03/06/17 09:45 Lasix Injection - IVPB 40 mg DAILY [facility] Administration Hydralazine HCl 10 mg 03/06/17 10:00 03/06/17 09:45 Apresoline - PO 10 mg BID [facility] Administration Magnesium Oxide 400 mg 03/05/17 12:45 03/06/17 09:46 Mag-Ox - PO 400 mg BID [facility] Administration Spironolactone 25 mg 03/06/17 10:00 03/06/17 09:45 Aldactone - PO 25 mg DAILY [facility] Administration Impression 1. HTN 2. CHF 3. proteinuria 4. CKD Plan - will send urine protein to pie crust mixer ratio - pt will also need a ckd workup which can be done as outpt - cont current meds - cont diuretics - there is a large difference in kidney size - will order a renal artery doppler to evalaute the blood vessels - monitor blood pressure - will follow - cardiology input appreciated Dr Gregorio
[2017-03-07 01:40] LABS: URINE APPEARANCE CLEAR; URINE BILIRUBIN NEGATIVE (NEGATIVE); URINE BLOOD 1+ (NEGATIVE); URINE COLOR YELLOW; URINE GLUCOSE (UA) 3+ (NEGATIVE); URINE KETONE NEGATIVE (NEGATIVE); URINE LEUK ESTERASE NEGATIVE (NEGATIVE); URINE NITRITE NEGATIVE (NEGATIVE); URINE PROTEIN NEGATIVE (NEGATIVE); URINE UROBILINOGEN NEGATIVE mg/dL (0.2-1.0)
[2017-03-07 01:59] LABS: URINE MUCUS RARE; URINE RBC <1 /hpf (0-3); URINE WBC <1 /hpf (3-5)
[2017-03-07 02:11] LABS: URINE CREATININE 76.7 mg/dL (20-370)
[2017-03-07 08:07] LABS: ALBUMIN 2.8 g/dl (3.4-5.0); ANION GAP 7 (8-16); CALCIUM 8.5 mg/dL (8.5-10.1); CO2 30 mmol/L (21-32); CREATININE 0.9 mg/dL (0.7-1.3); GLUCOSE,RANDOM 92 mg/dL (74-106); SGOT/AST 26 U/L (15-37); SGPT/ALT 34 U/L (12-78)
[2017-03-07 08:09] LABS: ALK PHOS 69 U/L (45-117); BILIRUBIN,TOTAL 1.3 mg/dL (0.2-1.0); TOT PROT 5.7 g/dl (6.4-8.2)
[2017-03-07] MEDS: ENOXAPARIN NA (PORCINE) 40 MG/0.4 ML DISP.SYRIN SQ SCH (09:53)
[2017-03-07] MEDS: FUROSEMIDE 40 MG/4 ML INJECTABLE VIAL IVPB SCH (09:53)
[2017-03-07] MEDS: CARVEDILOL 6.25 MG TABLET (FP) PO SCH ×2 (09:54→21:23)
[2017-03-07] MEDS: SPIRONOLACTONE 25 MG TABLET (FP) PO SCH (09:54)
[2017-03-07] MEDS: ENALAPRIL MALEATE 10 MG TABLET (FP) PO SCH (09:54)
[2017-03-07] MEDS: hydrALAZINE HCL 10 MG TABLET PO SCH ×2 (09:54→21:23)
[2017-03-07] MEDS: amLODIPine BESYLATE 10 MG TABLET (FP) PO SCH (09:54)
[2017-03-07] MEDS: MAGNESIUM OXIDE 400 MG TABLET (FP) PO SCH ×2 (09:54→21:23)
--- NOTE | 2017-03-07 10:07 | PN ---
Progress Note, Physician Chief Complaint: noted renal artery doppler No complaints has a dry cough says that swelling in legs is better - Current Medication List Current Medications: Active Medications Amlodipine Besylate (Norvasc -) 10 mg PO DAILY [facility] Last Admin: 03/07/17 09:54 Dose: 10 mg Carvedilol (Coreg -) 6.25 mg PO BID [facility] Last Admin: 03/07/17 09:54 Dose: 6.25 mg Enalapril Maleate (Vasotec -) 10 mg PO BID [facility] Last Admin: 03/07/17 09:54 Dose: 10 mg Enoxaparin Sodium (Lovenox -) 40 mg SQ DAILY [facility] Last Admin: 03/07/17 09:53 Dose: 40 mg Furosemide (Lasix Injection -) 40 mg IVPB DAILY [facility] Last Admin: 03/07/17 09:53 Dose: 40 mg Hydralazine HCl (Apresoline -) 10 mg PO BID [facility] Last Admin: 03/07/17 09:54 Dose: 10 mg Magnesium Oxide (Mag-Ox -) 400 mg PO BID [facility] Last Admin: 03/07/17 09:54 Dose: 400 mg Spironolactone (Aldactone -) 25 mg PO DAILY [facility] Last Admin: 03/07/17 09:54 Dose: 25 mg - Objective Vital Signs: Vital Signs Temperature 97.5 F L 03/07/17 06:00 Pulse Rate 94 H 03/07/17 06:00 Respiratory Rate 20 03/07/17 06:00 Blood Pressure 174/109 03/07/17 06:00 O2 Sat by Pulse Oximetry (%) 99 03/06/17 21:00 Constitutional: Yes: No Distress Cardiovascular: Yes: Regular Rate and Rhythm Respiratory: Yes: CTA Bilaterally. No: Rales, Rhonchi Gastrointestinal: Yes: Normal Bowel Sounds, Soft. No: Distention, Tenderness Edema: Yes (decreased) Edema: LLE: 2+, RLE: 2+ Psychiatric: Yes: Alert, Oriented Labs: CBC, BMP 03/05/17 06:00 03/07/17 05:35 INR, PTT INR 1.13 (0.82-1.09) 03/04/17 11:10 Problem List - Problems (1) Heart failure Code(s): I50.9 - HEART FAILURE, UNSPECIFIED Qualifiers: Heart failure type: unspecified heart failure type Heart failure chronicity: unspecified heart failure chronicity Qualified Code(s): I50.9 - Heart failure, unspecified (2) Hypertensive urgency Code(s): I16.0 - HYPERTENSIVE URGENCY (3) Noncompliance Code(s): Z91.19 - PATIENT'S NONCOMPLIANCE W OTH MEDICAL TREATMENT AND REGIMEN (4) Mitral regurgitation Code(s): I34.0 - NONRHEUMATIC MITRAL (VALVE) INSUFFICIENCY (5) Renal artery stenosis Code(s): I70.1 - ATHEROSCLEROSIS OF RENAL ARTERY Assessment/Plan PLAN BP still elevated On meds Continue with Lasix Renal eval appreciated renal artery doppler noted-- has right renal artery stenosis -- Vascular eval Pt informed about test results may need to dc ACEI continue with meds
--- NOTE | 2017-03-07 13:23 | PN ---
Progress Note, Physician Chief Complaint: Pt sitting up at bedside; chronic cough (x months), at times with phlegm No chest pain or headache. - Current Medication List Current Medications: Active Medications Amlodipine Besylate (Norvasc -) 10 mg PO DAILY [facility] Last Admin: 03/07/17 09:54 Dose: 10 mg Carvedilol (Coreg -) 6.25 mg PO BID [facility] Last Admin: 03/07/17 09:54 Dose: 6.25 mg Enalapril Maleate (Vasotec -) 10 mg PO BID [facility] Last Admin: 03/07/17 09:54 Dose: 10 mg Enoxaparin Sodium (Lovenox -) 40 mg SQ DAILY [facility] Last Admin: 03/07/17 09:53 Dose: 40 mg Furosemide (Lasix Injection -) 40 mg IVPB DAILY [facility] Last Admin: 03/07/17 09:53 Dose: 40 mg Hydralazine HCl (Apresoline -) 10 mg PO BID [facility] Last Admin: 03/07/17 09:54 Dose: 10 mg Magnesium Oxide (Mag-Ox -) 400 mg PO BID [facility] Last Admin: 03/07/17 09:54 Dose: 400 mg Spironolactone (Aldactone -) 25 mg PO DAILY [facility] Last Admin: 03/07/17 09:54 Dose: 25 mg - Objective Vital Signs: Vital Signs Temperature 97.5 F L 03/07/17 06:00 Pulse Rate 94 H 03/07/17 06:00 Respiratory Rate 20 03/07/17 06:00 Blood Pressure 174/109 03/07/17 06:00 O2 Sat by Pulse Oximetry (%) 99 03/06/17 21:00 Labs: CBC, BMP 03/05/17 06:00 03/07/17 05:35 INR, PTT INR 1.13 (0.82-1.09) 03/04/17 11:10 Problem List - Problems (1) Hypertensive urgency Assessment/Plan: BP now 129/90 mmHg. Will change ACEI to ARB because of cough, though of unclear etiology. F/u renal artery stenosis. Code(s): I16.0 - HYPERTENSIVE URGENCY (2) Noncompliance Code(s): Z91.19 - PATIENT'S NONCOMPLIANCE W OTH MEDICAL TREATMENT AND REGIMEN (3) Renal artery stenosis Assessment/Plan: renal US: 50-[address] or MRA recommended. f/u with store clerk checker and vascular surgeon. Code(s): I70.1 - ATHEROSCLEROSIS OF RENAL ARTERY (4) Systolic and diastolic CHF, chronic Assessment/Plan: Continue carvedilol, hhydralazine (add nitrate), [id number]. Enalapril changed to losartan (cough). F/u BUN/Cr, electrolytes, daily weight, Is and Os. Renal artery stenosis. Code(s): I50.42 - CHRONIC COMBINED SYSTOLIC AND DIASTOLIC HRT FAIL
[2017-03-07] MEDS: LOSARTAN POTASSIUM 50 MG TABLET (FP) PO SCH (15:14)
[2017-03-07] MEDS: ISOSORBIDE MONONITRATE 30 MG TAB.SR.24H (FP) PO SCH (15:15)
--- NOTE | 2017-03-07 17:53 | PN ---
Progress Note, Physician History of Present Illness: Pt seen and examined at bedside. He does complain of lower extremity edema. He denies shortness of breath. - Current Medication List Current Medications: Active Medications Amlodipine Besylate (Norvasc -) 10 mg PO DAILY [facility] Last Admin: 03/07/17 09:54 Dose: 10 mg Carvedilol (Coreg -) 6.25 mg PO BID [facility] Last Admin: 03/07/17 09:54 Dose: 6.25 mg Enoxaparin Sodium (Lovenox -) 40 mg SQ DAILY [facility] Last Admin: 03/07/17 09:53 Dose: 40 mg Furosemide (Lasix Injection -) 40 mg IVPB DAILY [facility] Last Admin: 03/07/17 09:53 Dose: 40 mg Hydralazine HCl (Apresoline -) 10 mg PO BID [facility] Last Admin: 03/07/17 09:54 Dose: 10 mg Isosorbide Mononitrate (Imdur -) 30 mg PO DAILY [facility] Last Admin: 03/07/17 15:15 Dose: 30 mg Losartan Potassium (Cozaar -) 100 mg PO DAILY [facility] Last Admin: 03/07/17 15:14 Dose: 100 mg Magnesium Oxide (Mag-Ox -) 400 mg PO BID [facility] Last Admin: 03/07/17 09:54 Dose: 400 mg Spironolactone (Aldactone -) 25 mg PO DAILY [facility] Last Admin: 03/07/17 09:54 Dose: 25 mg - Objective Vital Signs: Vital Signs Temperature 98.2 F 03/07/17 15:21 Pulse Rate 87 03/07/17 15:21 Respiratory Rate 16 03/07/17 15:21 Blood Pressure 129/90 03/07/17 15:21 O2 Sat by Pulse Oximetry (%) 100 03/07/17 10:00 Constitutional: Yes: Calm Eyes: Yes: Conjunctiva Clear HENT: Yes: Atraumatic Neck: Yes: Supple Cardiovascular: Yes: S1, S2 Respiratory: Yes: CTA Bilaterally Gastrointestinal: Yes: Soft Genitourinary: Yes: WNL Musculoskeletal: Yes: WNL Edema: Yes Edema: LLE: 1+, RLE: 1+ Neurological: Yes: Oriented Psychiatric: Yes: Oriented Labs: CBC, BMP 03/05/17 06:00 03/07/17 05:35 INR, PTT INR 1.13 (0.82-1.09) 03/04/17 11:10 Problem List - Problems (1) Heart failure Code(s): I50.9 - HEART FAILURE, UNSPECIFIED Qualifiers: Heart failure type: unspecified heart failure type Heart failure chronicity: unspecified heart failure chronicity Qualified Code(s): I50.9 - Heart failure, unspecified (2) Hypertensive urgency Code(s): I16.0 - HYPERTENSIVE URGENCY (3) Mitral regurgitation Code(s): I34.0 - NONRHEUMATIC MITRAL (VALVE) INSUFFICIENCY (4) Noncompliance Code(s): Z91.19 - PATIENT'S NONCOMPLIANCE W OTH MEDICAL TREATMENT AND REGIMEN (5) Proteinuria Code(s): R80.9 - PROTEINURIA, UNSPECIFIED (6) CKD (chronic kidney disease) Code(s): N18.9 - CHRONIC KIDNEY DISEASE, UNSPECIFIED Assessment/Plan Current Medications Generic Name Dose Route Start Last Admin Trade Name Freq PRN Reason Stop Dose Admin Amlodipine Besylate 10 mg 03/06/17 12:34 03/07/17 09:54 Norvasc - PO 10 mg DAILY [facility] Administration Carvedilol 6.25 mg 03/06/17 10:00 03/07/17 09:54 Coreg - PO 6.25 mg BID [facility] Administration Enoxaparin Sodium 40 mg 03/06/17 10:00 03/07/17 09:53 Lovenox - SQ 40 mg DAILY [facility] Administration Furosemide 40 mg 03/05/17 10:00 03/07/17 09:53 Lasix Injection - IVPB 40 mg DAILY [facility] Administration Hydralazine HCl 10 mg 03/06/17 10:00 03/07/17 09:54 Apresoline - PO 10 mg BID [facility] Administration Isosorbide Mononitrate 30 mg 03/07/17 14:00 03/07/17 15:15 Imdur - PO 30 mg DAILY [facility] Administration Losartan Potassium 100 mg 03/07/17 13:45 03/07/17 15:14 Cozaar - PO 100 mg DAILY [facility] Administration Magnesium Oxide 400 mg 03/05/17 12:45 03/07/17 09:54 Mag-Ox - PO 400 mg BID [facility] Administration Spironolactone 25 mg 03/06/17 10:00 03/07/17 09:54 Aldactone - PO 25 mg DAILY [facility] Administration Impression 1. HTN 2. CHF 3. proteinuria - improved 4. CKD 5. JARRELL on ultrasound Plan - renal artery doppler does show stenosis on right side - recommend vascular surgery evaluation - consider renal lasix washout scan - repat ua reviewed - pt will also need a ckd workup which can be done as outpt - monitor blood pressure - will follow Dr Gregorio
[2017-03-08 08:41] LABS: ANION GAP 10 (8-16); CALCIUM 8.6 mg/dL (8.5-10.1); CO2 28 mmol/L (21-32); CREATININE 0.9 mg/dL (0.7-1.3); GLUCOSE,RANDOM 93 mg/dL (74-106)
--- NOTE | 2017-03-08 08:55 | PN ---
Progress Note, Physician Chief Complaint: no distress - Current Medication List Current Medications: Active Medications Amlodipine Besylate (Norvasc -) 10 mg PO DAILY [facility] Last Admin: 03/07/17 09:54 Dose: 10 mg Carvedilol (Coreg -) 6.25 mg PO BID [facility] Last Admin: 03/07/17 21:23 Dose: 6.25 mg Enoxaparin Sodium (Lovenox -) 40 mg SQ DAILY [facility] Last Admin: 03/07/17 09:53 Dose: 40 mg Furosemide (Lasix Injection -) 40 mg IVPB DAILY [facility] Last Admin: 03/07/17 09:53 Dose: 40 mg Hydralazine HCl (Apresoline -) 10 mg PO BID [facility] Last Admin: 03/07/17 21:23 Dose: 10 mg Isosorbide Mononitrate (Imdur -) 30 mg PO DAILY [facility] Last Admin: 03/07/17 15:15 Dose: 30 mg Losartan Potassium (Cozaar -) 100 mg PO DAILY [facility] Last Admin: 03/07/17 15:14 Dose: 100 mg Magnesium Oxide (Mag-Ox -) 400 mg PO BID [facility] Last Admin: 03/07/17 21:23 Dose: 400 mg Spironolactone (Aldactone -) 25 mg PO DAILY [facility] Last Admin: 03/07/17 09:54 Dose: 25 mg - Objective Vital Signs: Vital Signs Temperature 98.2 F 03/08/17 06:00 Pulse Rate 60 03/08/17 06:00 Respiratory Rate 16 03/08/17 06:00 Blood Pressure 142/74 03/08/17 06:00 O2 Sat by Pulse Oximetry (%) 100 03/07/17 21:00 Constitutional: Yes: No Distress Cardiovascular: Yes: Regular Rate and Rhythm Respiratory: Yes: CTA Bilaterally Gastrointestinal: Yes: Normal Bowel Sounds, Soft. No: Tenderness Edema: Yes Edema: LLE: 2+, RLE: 2+ Labs: CBC, BMP 03/05/17 06:00 03/08/17 05:35 INR, PTT INR 1.13 (0.82-1.09) 03/04/17 11:10 Problem List - Problems (1) Heart failure Code(s): I50.9 - HEART FAILURE, UNSPECIFIED Qualifiers: Heart failure type: unspecified heart failure type Heart failure chronicity: unspecified heart failure chronicity Qualified Code(s): I50.9 - Heart failure, unspecified (2) Hypertensive urgency Code(s): I16.0 - HYPERTENSIVE URGENCY (3) Noncompliance Code(s): Z91.19 - PATIENT'S NONCOMPLIANCE W OTH MEDICAL TREATMENT AND REGIMEN (4) Mitral regurgitation Code(s): I34.0 - NONRHEUMATIC MITRAL (VALVE) INSUFFICIENCY (5) Renal artery stenosis Code(s): I70.1 - ATHEROSCLEROSIS OF RENAL ARTERY Assessment/Plan PLAN BP better On meds Continue with Lasix Vascular eval -- pending continue with meds OOB daily
[2017-03-08] MEDS: LOSARTAN POTASSIUM 50 MG TABLET (FP) PO SCH (09:21)
[2017-03-08] MEDS: ISOSORBIDE MONONITRATE 30 MG TAB.SR.24H (FP) PO SCH (09:21)
[2017-03-08] MEDS: CARVEDILOL 6.25 MG TABLET (FP) PO SCH ×2 (09:22→21:13)
[2017-03-08] MEDS: SPIRONOLACTONE 25 MG TABLET (FP) PO SCH (09:22)
[2017-03-08] MEDS: amLODIPine BESYLATE 10 MG TABLET (FP) PO SCH (09:22)
[2017-03-08] MEDS: hydrALAZINE HCL 10 MG TABLET PO SCH ×2 (09:22→21:13)
[2017-03-08] MEDS: ENOXAPARIN NA (PORCINE) 40 MG/0.4 ML DISP.SYRIN SQ SCH (09:22)
[2017-03-08] MEDS: FUROSEMIDE 40 MG/4 ML INJECTABLE VIAL IVPB SCH (09:22)
[2017-03-08] MEDS: MAGNESIUM OXIDE 400 MG TABLET (FP) PO SCH ×2 (09:22→21:13)
--- NOTE | 2017-03-08 12:38 | CONSULT ---
Consult - Past Medical History Cardio/Vascular: Yes: HTN, Murmur Gastrointestinal: No: Ascites, Cancer, Constipation, Crohn's Disease, Diverticulitis, Diverticulosis, Esophageal Varices, Gastritis, GERD, GI Bleed, Hemorrhoids, Hiatal Hernia, Inflamatory Bowel Disease, Irritable Bowel Disease, Pancreatitis, Peptic Ulcer Disease, Ulcerative Colitis, Other Renal/: No: Renal Failure, Renal Inusuff, BPH, Cancer, Hematuria, Hemodialysis , Neurogenic Bladder, Renal Calculi, UTI, Other Infectious Disease: No: AIDS, C-Diff, Herpes Zoster, HIV, MRSA, STD's, Tuberculosis, VREF, Other Psych: No: Addictions, Anxiety, Bipolar, Depression, Panic, Psychosis, Schizophrenia, Other Musculoskeletal: No: Bursitis, Chronic low back pain, Hemiparesis, Hemiplegia, Osteoarthritis, Paraplegia, Other Rheumatology: No: Fibromyalgia, Gout, Lupus, Rheumatoid Arthritis, Sarcoidosis, Vasculitis, Other Endocrine: No: [place]'s Disease, Kath's Disease, Diabetes Insipidus, Diabetes Mellitus, Hyperparathyroidism, Hyperthyroidism, Hypothyroidism, Osteopenia, SIADH, Other Dermatology: No: Basal Cell, Cellulitis, Eczema, Melanoma, Psoriasis, Squamous Cell, Other - Alcohol/Substance Use Hx Alcohol Use: No - Smoking History Smoking history: Never smoked Have you smoked in the past 12 months: No Aproximately how many cigarettes per day: 0 - Social History Usual Living Arrangement: Other (with family) History of Recent Travel: No Home Medications - Allergies Allergies/Adverse Reactions: Allergies Allergy/AdvReac Type Severity Reaction Status Date / Time amoxicillin Allergy Verified 03/04/17 10:59 - Home Medications Home Medications: Ambulatory Orders NK [No Known Home Medication] 03/04/17 Physical Exam Vital Signs: Vital Signs Temperature 98.2 F 03/08/17 06:00 Pulse Rate 60 03/08/17 06:00 Respiratory Rate 16 03/08/17 06:00 Blood Pressure 142/74 03/08/17 06:00 O2 Sat by Pulse Oximetry (%) 100 03/07/17 21:00 Labs: CBC, BMP 03/05/17 06:00 03/08/17 05:35 Assessment/Plan VAscular Surgery The patient is a 42 year old male, with no significant past medical history, who presents to the emergency department from PCP office for hypertension and lower extremity edema today. The patient reports he is breathing fine, however , his family member at bedside states his chest is moving very fast. He denies chest pain, shortness of breath, headache and dizziness. He denies fever, chills, nausea, vomit, diarrhea and constipation. He denies dysuria, frequency, urgency and hematuria. Allergies: amoxicillin Social history: Pt denies toxic habits PCP - Dr. Nation Pt examined by me in the ER Mother at his side Pt lives with his mother. Went to see his PMD- DR Nation today who sent him here for HTN urgency and lower extremities edema. Pt admits that he gets SOB when he climbs stairs, no orthopnea or PND. I spoke with his PMD-- apparently had seen him 2014 for elevated BP and pt had seen a quality control auditor in [facility]- Dr Juarez, was on Carvedilol and Lisinopril at that time and has not been on meds for the last 6 months because he " felt fine" No headaches, visual disturbances, chest pain History Source: Patient, Family Member, Medical Record Limitations to Obtaining History: No Limitations - Past Medical History Cardiovascular: Yes: HTN - Smoking History Smoking history: Never smoked Have you smoked in the past 12 months: No Aproximately how many cigarettes per day: 0 - Alcohol/Substance Use Hx Alcohol Use: No Home Medications - Allergies Allergies/Adverse Reactions: Allergies Allergy/AdvReac Type Severity Reaction Status Date / Time amoxicillin Allergy Verified 03/04/17 10:59 - Home Medications Home Medications: Ambulatory Orders NK [No Known Home Medication] 03/04/17 PE Head - NC/At Lung - cTA heart - RRR abd - soft,nt,nd, ext - warm, pink A/P renal ultrasound reviewed. Right renal artery stenosis at best of 50%. Pt needs to be more compliant with HTN meds to see if medically therapy is working. Very unlikely that a 50% stenosis is causing the hypertensive crisis. Considering the the left renal artery is normal. Medical management for now. Sal[place] Roman DO
--- NOTE | 2017-03-08 16:56 | PN ---
Progress Note, Physician History of Present Illness: Pt seen and examined at bedside. He is awake and alert. He denies shortness of breath. - Current Medication List Current Medications: Active Medications Amlodipine Besylate (Norvasc -) 10 mg PO DAILY [facility] Last Admin: 03/08/17 09:22 Dose: 10 mg Carvedilol (Coreg -) 6.25 mg PO BID [facility] Last Admin: 03/08/17 09:22 Dose: 6.25 mg Enoxaparin Sodium (Lovenox -) 40 mg SQ DAILY [facility] Last Admin: 03/08/17 09:22 Dose: 40 mg Furosemide (Lasix Injection -) 40 mg IVPB DAILY [facility] Last Admin: 03/08/17 09:22 Dose: 40 mg Hydralazine HCl (Apresoline -) 10 mg PO BID [facility] Last Admin: 03/08/17 09:22 Dose: 10 mg Isosorbide Mononitrate (Imdur -) 30 mg PO DAILY [facility] Last Admin: 03/08/17 09:21 Dose: 30 mg Losartan Potassium (Cozaar -) 100 mg PO DAILY [facility] Last Admin: 03/08/17 09:21 Dose: 100 mg Magnesium Oxide (Mag-Ox -) 400 mg PO BID [facility] Last Admin: 03/08/17 09:22 Dose: 400 mg Spironolactone (Aldactone -) 25 mg PO DAILY [facility] Last Admin: 03/08/17 09:22 Dose: 25 mg - Objective Vital Signs: Vital Signs Temperature 97.9 F 03/08/17 15:14 Pulse Rate 79 03/08/17 15:14 Respiratory Rate 16 03/08/17 15:14 Blood Pressure 129/78 03/08/17 15:14 O2 Sat by Pulse Oximetry (%) 98 03/08/17 10:00 Constitutional: Yes: Calm Eyes: Yes: Conjunctiva Clear HENT: Yes: Atraumatic Neck: Yes: Supple Cardiovascular: Yes: S1, S2 Respiratory: Yes: CTA Bilaterally Gastrointestinal: Yes: Soft Genitourinary: Yes: WNL Musculoskeletal: Yes: WNL Edema: Yes Edema: LLE: 1+, RLE: 1+ Neurological: Yes: Oriented Psychiatric: Yes: Oriented Labs: CBC, BMP 03/05/17 06:00 03/08/17 05:35 INR, PTT INR 1.13 (0.82-1.09) 03/04/17 11:10 Problem List - Problems (1) Heart failure Code(s): I50.9 - HEART FAILURE, UNSPECIFIED Qualifiers: Heart failure type: unspecified heart failure type Heart failure chronicity: unspecified heart failure chronicity Qualified Code(s): I50.9 - Heart failure, unspecified (2) Hypertensive urgency Code(s): I16.0 - HYPERTENSIVE URGENCY (3) Mitral regurgitation Code(s): I34.0 - NONRHEUMATIC MITRAL (VALVE) INSUFFICIENCY (4) Noncompliance Code(s): Z91.19 - PATIENT'S NONCOMPLIANCE W OTH MEDICAL TREATMENT AND REGIMEN (5) Proteinuria Code(s): R80.9 - PROTEINURIA, UNSPECIFIED (6) CKD (chronic kidney disease) Code(s): N18.9 - CHRONIC KIDNEY DISEASE, UNSPECIFIED Assessment/Plan Current Medications Generic Name Dose Route Start Last Admin Trade Name Freq PRN Reason Stop Dose Admin Amlodipine Besylate 10 mg 03/06/17 12:34 03/08/17 09:22 Norvasc - PO 10 mg DAILY [facility] Administration Carvedilol 6.25 mg 03/06/17 10:00 03/08/17 09:22 Coreg - PO 6.25 mg BID [facility] Administration Enoxaparin Sodium 40 mg 03/06/17 10:00 03/08/17 09:22 Lovenox - SQ 40 mg DAILY [facility] Administration Furosemide 40 mg 03/05/17 10:00 03/08/17 09:22 Lasix Injection - IVPB 40 mg DAILY [facility] Administration Hydralazine HCl 10 mg 03/06/17 10:00 03/08/17 09:22 Apresoline - PO 10 mg BID [facility] Administration Isosorbide Mononitrate 30 mg 03/07/17 14:00 03/08/17 09:21 Imdur - PO 30 mg DAILY [facility] Administration Losartan Potassium 100 mg 03/07/17 13:45 03/08/17 09:21 Cozaar - PO 100 mg DAILY [facility] Administration Magnesium Oxide 400 mg 03/05/17 12:45 03/08/17 09:22 Mag-Ox - PO 400 mg BID [facility] Administration Spironolactone 25 mg 03/06/17 10:00 03/08/17 09:22 Aldactone - PO 25 mg DAILY [facility] Administration Impression 1. HTN 2. CHF 3. proteinuria - improved 4. CKD 5. JARRELL on ultrasound Plan - vascular input appreciated - cont current meds - bp is better controlled - renal function scan in am - pt will also need a ckd workup which can be done as outpt - monitor blood pressure - will follow Dr Gregorio
[2017-03-08] MEDS ORDERED: ACETAMINOPHEN 325 MG TABLET (FP) PO PRN (23:48)
--- NOTE | 2017-03-09 06:02 | PN ---
Progress Note, Physician Chief Complaint: Pt denies chest pain or dyspnea. History of Present Illness: The patient is a 42 year old male, with no significant past medical history, who presents to the emergency department from PCP office for hypertension and lower extremity edema today. The patient reports he is breathing fine, however , his family member at bedside states his chest is moving very fast. He denies chest pain, shortness of breath, headache and dizziness. He denies fever, chills, nausea, vomit, diarrhea and constipation. He denies dysuria, frequency, urgency and hematuria. Allergies: amoxicillin Social history: Pt denies toxic habits PCP - Dr. Nation - Current Medication List Current Medications: Active Medications Acetaminophen (Tylenol -) 650 mg PO Q6H PRN PRN Reason: FEVER OR PAIN Last Admin: 03/08/17 22:00 Dose: 650 mg Amlodipine Besylate (Norvasc -) 10 mg PO DAILY [facility] Last Admin: 03/08/17 09:22 Dose: 10 mg Carvedilol (Coreg -) 6.25 mg PO BID [facility] Last Admin: 03/08/17 21:13 Dose: 6.25 mg Enoxaparin Sodium (Lovenox -) 40 mg SQ DAILY [facility] Last Admin: 03/08/17 09:22 Dose: 40 mg Furosemide (Lasix Injection -) 40 mg IVPB DAILY [facility] Last Admin: 03/08/17 09:22 Dose: 40 mg Hydralazine HCl (Apresoline -) 10 mg PO BID [facility] Last Admin: 03/08/17 21:13 Dose: 10 mg Isosorbide Mononitrate (Imdur -) 30 mg PO DAILY [facility] Last Admin: 03/08/17 09:21 Dose: 30 mg Losartan Potassium (Cozaar -) 100 mg PO DAILY [facility] Last Admin: 03/08/17 09:21 Dose: 100 mg Magnesium Oxide (Mag-Ox -) 400 mg PO BID [facility] Last Admin: 03/08/17 21:13 Dose: 400 mg Spironolactone (Aldactone -) 25 mg PO DAILY [facility] Last Admin: 03/08/17 09:22 Dose: 25 mg - Objective Vital Signs: Vital Signs Temperature 98 F 03/09/17 05:30 Pulse Rate 87 03/09/17 05:30 Respiratory Rate 16 03/09/17 05:30 Blood Pressure 142/86 03/09/17 05:30 O2 Sat by Pulse Oximetry (%) 98 03/08/17 20:29 Constitutional: Yes: Calm Eyes: Yes: WNL HENT: Yes: WNL Neck: Yes: WNL Cardiovascular: Yes: Regular Rate and Rhythm, S1, S2, S4 Respiratory: Yes: Regular Gastrointestinal: Yes: Soft ...Rectal Exam: Yes: Deferred Genitourinary: No: Anuria Breast(s): Yes: WNL Musculoskeletal: Yes: WNL Extremities: Yes: WNL Edema: No Peripheral Pulses WNL: Yes Integumentary: Yes: WNL Neurological: Yes: WNL Psychiatric: Yes: WNL Labs: CBC, BMP 03/05/17 06:00 03/08/17 05:35 INR, PTT INR 1.13 (0.82-1.09) 03/04/17 11:10 Abnormal Lab Results 03/08/17 05:35 BUN 20 H - ....Imaging Other: Image Reviewed (telemetry: NSR) Problem List - Problems (1) Hypertensive urgency Assessment/Plan: BP now better-controlled. Changed ACEI to ARB because of cough. F/u renal artery stenosis. Code(s): I16.0 - HYPERTENSIVE URGENCY (2) Noncompliance Code(s): Z91.19 - PATIENT'S NONCOMPLIANCE W OTH MEDICAL TREATMENT AND REGIMEN (3) Renal artery stenosis Assessment/Plan: renal US: 50-60% JARRELL right side. CT or MRA recommended. f/u with relay engineer and vascular surgeon. Code(s): I70.1 - ATHEROSCLEROSIS OF RENAL ARTERY (4) Systolic and diastolic CHF, chronic Assessment/Plan: Continue carvedilol, hydralazine (added nitrate), spironolaactone. Enalapril changed to losartan (cough). F/u BUN/Cr, electrolytes, daily weight, Is and Os. Renal artery stenosis. Code(s): I50.42 - CHRONIC COMBINED SYSTOLIC AND DIASTOLIC HRT FAIL
[2017-03-09] MEDS: ENOXAPARIN NA (PORCINE) 40 MG/0.4 ML DISP.SYRIN SQ SCH (10:21)
[2017-03-09] MEDS: CARVEDILOL 6.25 MG TABLET (FP) PO SCH ×2 (10:21→21:25)
[2017-03-09] MEDS: hydrALAZINE HCL 10 MG TABLET PO SCH ×2 (10:21→21:25)
[2017-03-09] MEDS: MAGNESIUM OXIDE 400 MG TABLET (FP) PO SCH ×2 (10:22→21:25)
[2017-03-09] MEDS: ISOSORBIDE MONONITRATE 30 MG TAB.SR.24H (FP) PO SCH (10:22)
[2017-03-09] MEDS: SPIRONOLACTONE 25 MG TABLET (FP) PO SCH (10:22)
[2017-03-09] MEDS: LOSARTAN POTASSIUM 50 MG TABLET (FP) PO SCH (10:22)
[2017-03-09] MEDS: amLODIPine BESYLATE 10 MG TABLET (FP) PO SCH (10:22)
[2017-03-09] MEDS: FUROSEMIDE 40 MG/4 ML INJECTABLE VIAL IVPB SCH (10:23)
--- NOTE | 2017-03-09 10:41 | PN ---
Progress Note, Physician History of Present Illness: seen and examined today in [facility]. no overnight events. no new complaints. states he is feeling better. - Current Medication List Current Medications: Active Medications Acetaminophen (Tylenol -) 650 mg PO Q6H PRN PRN Reason: FEVER OR PAIN Last Admin: 03/08/17 22:00 Dose: 650 mg Amlodipine Besylate (Norvasc -) 10 mg PO DAILY [facility] Last Admin: 03/09/17 10:22 Dose: 10 mg Carvedilol (Coreg -) 6.25 mg PO BID [facility] Last Admin: 03/09/17 10:21 Dose: 6.25 mg Enoxaparin Sodium (Lovenox -) 40 mg SQ DAILY [facility] Last Admin: 03/09/17 10:21 Dose: 40 mg Furosemide (Lasix Injection -) 40 mg IVPB DAILY [facility] Last Admin: 03/09/17 10:23 Dose: Not Given Hydralazine HCl (Apresoline -) 10 mg PO BID [facility] Last Admin: 03/09/17 10:21 Dose: 10 mg Isosorbide Mononitrate (Imdur -) 30 mg PO DAILY [facility] Last Admin: 03/09/17 10:22 Dose: 30 mg Losartan Potassium (Cozaar -) 100 mg PO DAILY [facility] Last Admin: 03/09/17 10:22 Dose: 100 mg Magnesium Oxide (Mag-Ox -) 400 mg PO BID [facility] Last Admin: 03/09/17 10:22 Dose: 400 mg Spironolactone (Aldactone -) 25 mg PO DAILY [facility] Last Admin: 03/09/17 10:22 Dose: 25 mg - Objective Vital Signs: Vital Signs Temperature 98 F 03/09/17 05:30 Pulse Rate 87 03/09/17 05:30 Respiratory Rate 16 03/09/17 05:30 Blood Pressure 142/86 03/09/17 05:30 O2 Sat by Pulse Oximetry (%) 98 03/08/17 20:29 Constitutional: Yes: Well Nourished, No Distress, Calm Eyes: Yes: WNL, Conjunctiva Clear, EOM Intact, PERRL HENT: Yes: WNL, Atraumatic, Normocephalic Neck: Yes: WNL, Supple, Trachea Midline Cardiovascular: Yes: Regular Rate and Rhythm, Murmur, S1, S2. No: Bradycardia, Tachycardia, Pulse Irregular, Bruit, JVD, Gallop, Rub, S3, S4, Varicosities, Other Respiratory: Yes: WNL, Regular, CTA Bilaterally. No: Rales, Rhonchi, Wheezes Gastrointestinal: Yes: WNL, Normal Bowel Sounds, Soft. No: Distention, Tenderness Musculoskeletal: Yes: WNL Extremities: Yes: WNL Edema: Yes Edema: LLE: Trace, RLE: Trace Peripheral Pulses WNL: Yes Peripheral Pulses: Left Doralis Pedis: 2+, Right Dorsalis Pedis: 2+ Integumentary: Yes: WNL Neurological: Yes: Alert, Oriented Psychiatric: Yes: Alert, Oriented Labs: CBC, BMP 03/05/17 06:00 03/08/17 05:35 INR, PTT INR 1.13 (0.82-1.09) 03/04/17 11:10 - ....Imaging Chest X-ray: Report Reviewed, Image Reviewed EKG: Report Reviewed, Image Reviewed Other: Report Reviewed, Image Reviewed (tele-nsr, brief self limited PSVT) Assessment/Plan IMP: Hypertensive urgency in setting medication non-adherence Acute on chronic combined systolic and diastolic CHF, probably due to uncontrolled HTN Cardiomyopathy MR/AR RBBB, chronic Murmur PSVT REC: 1. Hypertensive urgency: significantly improved, still slightly above [facility] goal but currently adequate -Cont Coreg 6.25mg bid, Hydralazine 10mg bid, Losartan 100mg daily, Imdur 30mg daily, Spironolactone 25mg daily, Norvasc 10mg daily -Enalapril was changed to Losartan due to cough 2. Acute on chronic combined systolic and diastolic CHF: newly discovered severe LV dysfx-likely due to uncontrolled HTN -nearly euvolemic -can dose IV Lasix today with plan to transition to po tomorrow -cont above medical regimen (for HTN and CHF) -etiology of cardiomyopathy most likely uncontrolled HTN, however will evaluate for ischemia with plan for nuclear stress test 3. RBBB: -Chronic, seen on ECG 2011. 4. PSVT-brief self limited, asymptomatic -cont bblocker -if no further events during inpatient, can be evaluated further as outpatient 5. Murmur: newly found moderate to severe MR, moderate AR, and cardiomyopathy -MR severity may be overestimated in this setting of volume overload and uncontrolled HTN -plan to repeat echo when euvolemic and BP well controlled, this can be done as outpatient -Should be repeated when BP controlled and euvolemic as it may improve with optimized hemodynamics.
--- NOTE | 2017-03-09 12:46 | PN ---
Progress Note (short form) - Note Progress Note: Pt seen/ examined chart reviewed no complains denies cp/ sob. bp much better all f/u noted Vital Signs Temp 98.4 F 03/09/17 10:00 Pulse 84 03/09/17 10:00 Resp 18 03/09/17 10:00 BP 148/97 03/09/17 10:00 Pulse Ox 98 03/09/17 09:00 Intake & Output 03/08/17 03/09/17 03/09/17 23:59 11:59 23:59 Intake Total 650 Balance 650 Weight 154 lb 3.2 oz Intake: Oral 650 Other: Voiding Method Toilet Toilet Toilet Bowel Movement Yes Weight Measurement Method Standing Scale Active Medications Acetaminophen (Tylenol -) 650 mg PO Q6H PRN PRN Reason: FEVER OR PAIN Last Admin: 03/08/17 22:00 Dose: 650 mg Amlodipine Besylate (Norvasc -) 10 mg PO DAILY [facility] Last Admin: 03/09/17 10:22 Dose: 10 mg Carvedilol (Coreg -) 6.25 mg PO BID [facility] Last Admin: 03/09/17 10:21 Dose: 6.25 mg Enoxaparin Sodium (Lovenox -) 40 mg SQ DAILY [facility] Last Admin: 03/09/17 10:21 Dose: 40 mg Furosemide (Lasix Injection -) 40 mg IVPB DAILY [facility] Last Admin: 03/09/17 10:23 Dose: Not Given Hydralazine HCl (Apresoline -) 10 mg PO BID [facility] Last Admin: 03/09/17 10:21 Dose: 10 mg Isosorbide Mononitrate (Imdur -) 30 mg PO DAILY [facility] Last Admin: 03/09/17 10:22 Dose: 30 mg Losartan Potassium (Cozaar -) 100 mg PO DAILY [facility] Last Admin: 03/09/17 10:22 Dose: 100 mg Magnesium Oxide (Mag-Ox -) 400 mg PO BID [facility] Last Admin: 03/09/17 10:22 Dose: 400 mg Spironolactone (Aldactone -) 25 mg PO DAILY [facility] Last Admin: 03/09/17 10:22 Dose: 25 mg CBC, BMP 03/05/17 06:00 03/08/17 05:35 Physical Exam. Constitutional: Yes: No Distress, Calm/ comfortable. Cardiovascular: Yes: Regular Rate and Rhythm, Respiratory: Yes: CTA Bilaterally Gastrointestinal: Yes: Normal Bowel Sounds, Soft, Abdomen, Obese. No: Distention, Tenderness Edema: Yes Edema: decreased edema. Problem List. - Problems (1) Heart failure Code(s): I50.9 - HEART FAILURE, UNSPECIFIED Qualifiers: Heart failure type: unspecified heart failure type Heart failure chronicity: unspecified heart failure chronicity Qualified Code(s): I50.9 - Heart failure, unspecified (2) Hypertensive urgency Code(s): I16.0 - HYPERTENSIVE URGENCY (3) Noncompliance Code(s): Z91.19 - PATIENT'S NONCOMPLIANCE W OTH MEDICAL TREATMENT AND REGIMEN (4) Mitral regurgitation Code(s): I34.0 - NONRHEUMATIC MITRAL (VALVE) INSUFFICIENCY Assessment/Plan overall better continue present care renal scan today stress test tomorrow will follow will discuss with cardiology also.
--- NOTE | 2017-03-09 14:22 | PN ---
Progress Note, Physician History of Present Illness: Pt seen and examined at bedside. He is awake and alert. He denies shortness of breath. - Current Medication List Current Medications: Active Medications Acetaminophen (Tylenol -) 650 mg PO Q6H PRN PRN Reason: FEVER OR PAIN Last Admin: 03/08/17 22:00 Dose: 650 mg Amlodipine Besylate (Norvasc -) 10 mg PO DAILY [facility] Last Admin: 03/09/17 10:22 Dose: 10 mg Carvedilol (Coreg -) 6.25 mg PO BID [facility] Last Admin: 03/09/17 10:21 Dose: 6.25 mg Enoxaparin Sodium (Lovenox -) 40 mg SQ DAILY [facility] Last Admin: 03/09/17 10:21 Dose: 40 mg Furosemide (Lasix Injection -) 40 mg IVPB DAILY [facility] Last Admin: 03/09/17 10:23 Dose: Not Given Hydralazine HCl (Apresoline -) 10 mg PO BID [facility] Last Admin: 03/09/17 10:21 Dose: 10 mg Isosorbide Mononitrate (Imdur -) 30 mg PO DAILY [facility] Last Admin: 03/09/17 10:22 Dose: 30 mg Losartan Potassium (Cozaar -) 100 mg PO DAILY [facility] Last Admin: 03/09/17 10:22 Dose: 100 mg Magnesium Oxide (Mag-Ox -) 400 mg PO BID [facility] Last Admin: 03/09/17 10:22 Dose: 400 mg Spironolactone (Aldactone -) 25 mg PO DAILY [facility] Last Admin: 03/09/17 10:22 Dose: 25 mg - Objective Vital Signs: Vital Signs Temperature 98.4 F 03/09/17 10:00 Pulse Rate 84 03/09/17 10:00 Respiratory Rate 18 03/09/17 10:00 Blood Pressure 148/97 03/09/17 10:00 O2 Sat by Pulse Oximetry (%) 98 03/09/17 09:00 Constitutional: Yes: Calm Eyes: Yes: Conjunctiva Clear Cardiovascular: Yes: S1, S2 Respiratory: Yes: CTA Bilaterally Gastrointestinal: Yes: Soft Genitourinary: Yes: WNL Musculoskeletal: Yes: WNL Edema: No Integumentary: Yes: WNL Neurological: Yes: Oriented Psychiatric: Yes: Oriented Labs: CBC, BMP 03/05/17 06:00 03/08/17 05:35 INR, PTT INR 1.13 (0.82-1.09) 03/04/17 11:10 Problem List - Problems (1) Heart failure Code(s): I50.9 - HEART FAILURE, UNSPECIFIED Qualifiers: Heart failure type: unspecified heart failure type Heart failure chronicity: unspecified heart failure chronicity Qualified Code(s): I50.9 - Heart failure, unspecified (2) Hypertensive urgency Code(s): I16.0 - HYPERTENSIVE URGENCY (3) Mitral regurgitation Code(s): I34.0 - NONRHEUMATIC MITRAL (VALVE) INSUFFICIENCY (4) Noncompliance Code(s): Z91.19 - PATIENT'S NONCOMPLIANCE W OTH MEDICAL TREATMENT AND REGIMEN (5) Proteinuria Code(s): R80.9 - PROTEINURIA, UNSPECIFIED (6) CKD (chronic kidney disease) Code(s): N18.9 - CHRONIC KIDNEY DISEASE, UNSPECIFIED Assessment/Plan Current Medications Generic Name Dose Route Start Last Admin Trade Name Freq PRN Reason Stop Dose Admin Acetaminophen 650 mg 03/08/17 23:48 03/08/17 22:00 Tylenol - PO 650 mg Q6H PRN Administration FEVER OR PAIN Amlodipine Besylate 10 mg 03/06/17 12:34 03/09/17 10:22 Norvasc - PO 10 mg DAILY [facility] Administration Carvedilol 6.25 mg 03/06/17 10:00 03/09/17 10:21 Coreg - PO 6.25 mg BID [facility] Administration Enoxaparin Sodium 40 mg 03/06/17 10:00 03/09/17 10:21 Lovenox - SQ 40 mg DAILY [facility] Administration Furosemide 40 mg 03/05/17 10:00 03/09/17 10:23 Lasix Injection - IVPB Not Given DAILY [facility] Hydralazine HCl 10 mg 03/06/17 10:00 03/09/17 10:21 Apresoline - PO 10 mg BID [facility] Administration Isosorbide Mononitrate 30 mg 03/07/17 14:00 03/09/17 10:22 Imdur - PO 30 mg DAILY [facility] Administration Losartan Potassium 100 mg 03/07/17 13:45 03/09/17 10:22 Cozaar - PO 100 mg DAILY [facility] Administration Magnesium Oxide 400 mg 03/05/17 12:45 03/09/17 10:22 Mag-Ox - PO 400 mg BID [facility] Administration Spironolactone 25 mg 03/06/17 10:00 03/09/17 10:22 Aldactone - PO 25 mg DAILY [facility] Administration Impression 1. HTN 2. CHF 3. proteinuria - improved 4. CKD 5. JARRELL on ultrasound Plan - monitor blood pressure - renal scan today - check bmp - cont current meds - check mag level as he is on supplements - will follow Dr Gregorio
[2017-03-10 09:07] LABS: ALBUMIN 3.1 g/dl (3.4-5.0); ALK PHOS 64 U/L (45-117); ANION GAP 10 (8-16); BILIRUBIN,TOTAL 0.9 mg/dL (0.2-1.0); CO2 30 mmol/L (21-32); CREATININE 0.9 mg/dL (0.7-1.3); GLUCOSE,RANDOM 81 mg/dL (74-106); MAGNESIUM 2.5 mg/dL (1.8-2.4); SGOT/AST 34 U/L (15-37); SGPT/ALT 48 U/L (12-78); TOT PROT 6.2 g/dl (6.4-8.2)
--- NOTE | 2017-03-10 09:50 | PN ---
Progress Note, Physician Chief Complaint: Had renal scan yesterday, planned for stress test tomorrow TELE: NSR with motion artifact - Current Medication List Current Medications: Active Medications Acetaminophen (Tylenol -) 650 mg PO Q6H PRN PRN Reason: FEVER OR PAIN Last Admin: 03/08/17 22:00 Dose: 650 mg Amlodipine Besylate (Norvasc -) 10 mg PO DAILY [facility] Last Admin: 03/09/17 10:22 Dose: 10 mg Carvedilol (Coreg -) 6.25 mg PO BID [facility] Last Admin: 03/09/17 21:25 Dose: 6.25 mg Enoxaparin Sodium (Lovenox -) 40 mg SQ DAILY [facility] Last Admin: 03/09/17 10:21 Dose: 40 mg Furosemide (Lasix Injection -) 40 mg IVPB DAILY [facility] Last Admin: 03/09/17 10:23 Dose: Not Given Hydralazine HCl (Apresoline -) 10 mg PO BID [facility] Last Admin: 03/09/17 21:25 Dose: 10 mg Isosorbide Mononitrate (Imdur -) 30 mg PO DAILY [facility] Last Admin: 03/09/17 10:22 Dose: 30 mg Losartan Potassium (Cozaar -) 100 mg PO DAILY [facility] Last Admin: 03/09/17 10:22 Dose: 100 mg Magnesium Oxide (Mag-Ox -) 400 mg PO BID [facility] Last Admin: 03/09/17 21:25 Dose: 400 mg Spironolactone (Aldactone -) 25 mg PO DAILY [facility] Last Admin: 03/09/17 10:22 Dose: 25 mg - Objective Vital Signs: Vital Signs Temperature 97.7 F 03/10/17 06:00 Pulse Rate 85 03/10/17 06:00 Respiratory Rate 17 03/10/17 06:00 Blood Pressure 135/81 03/10/17 06:00 O2 Sat by Pulse Oximetry (%) 100 03/10/17 06:00 Constitutional: Yes: Calm Eyes: Yes: Conjunctiva Clear Cardiovascular: Yes: Regular Rate and Rhythm Respiratory: Yes: CTA Bilaterally Gastrointestinal: Yes: Soft Edema: No Peripheral Pulses WNL: Yes Neurological: Yes: Alert, Oriented ...Motor Strength: WNL Labs: CBC, BMP 03/05/17 06:00 03/10/17 05:43 INR, PTT INR 1.13 (0.82-1.09) 03/04/17 11:10 Laboratory Tests 03/10/17 05:43 Sodium 140 Potassium 4.0 BUN 20 H Creatinine 0.9 - ....Imaging EKG: Image Reviewed Problem List - Problems (1) Heart failure Code(s): I50.9 - HEART FAILURE, UNSPECIFIED Qualifiers: Heart failure type: unspecified heart failure type Heart failure chronicity: unspecified heart failure chronicity Qualified Code(s): I50.9 - Heart failure, unspecified (2) Hypertensive urgency Code(s): I16.0 - HYPERTENSIVE URGENCY (3) Noncompliance Code(s): Z91.19 - PATIENT'S NONCOMPLIANCE W OTH MEDICAL TREATMENT AND REGIMEN Assessment/Plan IMP: Hypertensive urgency in setting medication non-adherence Acute on chronic combined systolic and diastolic CHF, probably due to uncontrolled HTN Cardiomyopathy MR/AR RBBB, chronic Murmur PSVT REC: 1. Hypertensive urgency: significantly improved -Cont Coreg 6.25mg bid, Hydralazine 10mg bid, Losartan 100mg daily, Imdur 30mg daily, Spironolactone 25mg daily, Norvasc 10mg daily -Enalapril was changed to Losartan due to cough 2. Acute on chronic combined systolic and diastolic CHF: newly discovered severe LV dysfx-likely due to uncontrolled HTN -euvolemic -switch to PO Lasix today -etiology of cardiomyopathy most likely uncontrolled HTN, however will evaluate for ischemia with plan for nuclear stress test 3. RBBB: -Chronic, seen on ECG 2011. 4. PSVT-brief self limited, asymptomatic -cont bblocker -if no further events during inpatient, can be evaluated further as outpatient 5. Murmur: newly found moderate to severe MR, moderate AR, and cardiomyopathy -MR severity may be overestimated in this setting of volume overload and uncontrolled HTN -plan to repeat echo when euvolemic and BP well controlled, this can be done as outpatient -Should be repeated when BP controlled and euvolemic as it may improve with optimized hemodynamics.
[2017-03-10] MEDS: ENOXAPARIN NA (PORCINE) 40 MG/0.4 ML DISP.SYRIN SQ SCH (09:54)
[2017-03-10] MEDS: ISOSORBIDE MONONITRATE 30 MG TAB.SR.24H (FP) PO SCH (09:55)
[2017-03-10] MEDS: CARVEDILOL 6.25 MG TABLET (FP) PO SCH ×2 (09:55→21:21)
[2017-03-10] MEDS: LOSARTAN POTASSIUM 50 MG TABLET (FP) PO SCH (09:55)
[2017-03-10] MEDS: SPIRONOLACTONE 25 MG TABLET (FP) PO SCH (09:55)
[2017-03-10] MEDS: MAGNESIUM OXIDE 400 MG TABLET (FP) PO SCH (09:55)
[2017-03-10] MEDS: amLODIPine BESYLATE 10 MG TABLET (FP) PO SCH (09:55)
[2017-03-10] MEDS: hydrALAZINE HCL 10 MG TABLET PO SCH ×2 (09:55→21:21)
[2017-03-10] MEDS: FUROSEMIDE 40 MG TABLET (FP) PO SCH (09:57)
--- NOTE | 2017-03-10 10:52 | PN ---
Progress Note, Physician Chief Complaint: comfortable no complaints cough is less - Current Medication List Current Medications: Active Medications Acetaminophen (Tylenol -) 650 mg PO Q6H PRN PRN Reason: FEVER OR PAIN Last Admin: 03/08/17 22:00 Dose: 650 mg Amlodipine Besylate (Norvasc -) 10 mg PO DAILY [facility] Last Admin: 03/10/17 09:55 Dose: 10 mg Carvedilol (Coreg -) 6.25 mg PO BID [facility] Last Admin: 03/10/17 09:55 Dose: 6.25 mg Enoxaparin Sodium (Lovenox -) 40 mg SQ DAILY [facility] Last Admin: 03/10/17 09:54 Dose: 40 mg Furosemide (Lasix -) 40 mg PO DAILY [facility] Last Admin: 03/10/17 09:57 Dose: 40 mg Hydralazine HCl (Apresoline -) 10 mg PO BID [facility] Last Admin: 03/10/17 09:55 Dose: 10 mg Isosorbide Mononitrate (Imdur -) 30 mg PO DAILY [facility] Last Admin: 03/10/17 09:55 Dose: 30 mg Losartan Potassium (Cozaar -) 100 mg PO DAILY [facility] Last Admin: 03/10/17 09:55 Dose: 100 mg Magnesium Oxide (Mag-Ox -) 400 mg PO BID [facility] Last Admin: 03/10/17 09:55 Dose: 400 mg Spironolactone (Aldactone -) 25 mg PO DAILY [facility] Last Admin: 03/10/17 09:55 Dose: 25 mg - Objective Vital Signs: Vital Signs Temperature 97.7 F 03/10/17 06:00 Pulse Rate 85 03/10/17 06:00 Respiratory Rate 17 03/10/17 06:00 Blood Pressure 135/81 03/10/17 06:00 O2 Sat by Pulse Oximetry (%) 100 03/10/17 06:00 Constitutional: Yes: No Distress, Calm Cardiovascular: Yes: Regular Rate and Rhythm, Gallop Respiratory: Yes: CTA Bilaterally Gastrointestinal: Yes: Normal Bowel Sounds, Soft, Abdomen, Obese. No: Distention, Tenderness Edema: Yes (decreased ) Edema: LLE: Trace, RLE: Trace Labs: CBC, BMP 03/05/17 06:00 03/10/17 05:43 INR, PTT INR 1.13 (0.82-1.09) 03/04/17 11:10 Problem List - Problems (1) Heart failure Code(s): I50.9 - HEART FAILURE, UNSPECIFIED Qualifiers: Heart failure type: unspecified heart failure type Heart failure chronicity: unspecified heart failure chronicity Qualified Code(s): I50.9 - Heart failure, unspecified (2) Hypertensive urgency Code(s): I16.0 - HYPERTENSIVE URGENCY (3) Noncompliance Code(s): Z91.19 - PATIENT'S NONCOMPLIANCE W OTH MEDICAL TREATMENT AND REGIMEN (4) Mitral regurgitation Code(s): I34.0 - NONRHEUMATIC MITRAL (VALVE) INSUFFICIENCY (5) Renal artery stenosis Code(s): I70.1 - ATHEROSCLEROSIS OF RENAL ARTERY Assessment/Plan PLAN BP better On meds Continue with Lasix-- changed to PO noted Renal scan -- right kidney smaller than left , contributes to 41% of total kidney function Renal artery stenosis--- no interventions per Vascular ACEI-- changed to Losartan due to cough Stress test tomorrow OOB daily DVT prophylaxis-- Lovenox sc
--- NOTE | 2017-03-10 13:59 | PN ---
Progress Note, Physician History of Present Illness: Pt seen and examined at bedside. He is awake and alert. He denies shortness of breath. - Current Medication List Current Medications: Active Medications Acetaminophen (Tylenol -) 650 mg PO Q6H PRN PRN Reason: FEVER OR PAIN Last Admin: 03/08/17 22:00 Dose: 650 mg Amlodipine Besylate (Norvasc -) 10 mg PO DAILY [facility] Last Admin: 03/10/17 09:55 Dose: 10 mg Carvedilol (Coreg -) 6.25 mg PO BID [facility] Last Admin: 03/10/17 09:55 Dose: 6.25 mg Enoxaparin Sodium (Lovenox -) 40 mg SQ DAILY [facility] Last Admin: 03/10/17 09:54 Dose: 40 mg Furosemide (Lasix -) 40 mg PO DAILY [facility] Last Admin: 03/10/17 09:57 Dose: 40 mg Hydralazine HCl (Apresoline -) 10 mg PO BID [facility] Last Admin: 03/10/17 09:55 Dose: 10 mg Isosorbide Mononitrate (Imdur -) 30 mg PO DAILY [facility] Last Admin: 03/10/17 09:55 Dose: 30 mg Losartan Potassium (Cozaar -) 100 mg PO DAILY [facility] Last Admin: 03/10/17 09:55 Dose: 100 mg Magnesium Oxide (Mag-Ox -) 400 mg PO BID [facility] Last Admin: 03/10/17 09:55 Dose: 400 mg Spironolactone (Aldactone -) 25 mg PO DAILY [facility] Last Admin: 03/10/17 09:55 Dose: 25 mg - Objective Vital Signs: Vital Signs Temperature 97.4 F L 03/10/17 11:16 Pulse Rate 87 03/10/17 11:16 Respiratory Rate 18 03/10/17 11:16 Blood Pressure 141/76 03/10/17 11:16 O2 Sat by Pulse Oximetry (%) 100 03/10/17 09:00 Constitutional: Yes: Calm Eyes: Yes: Conjunctiva Clear HENT: Yes: Atraumatic Cardiovascular: Yes: S1, S2 Respiratory: Yes: CTA Bilaterally Gastrointestinal: Yes: Soft Genitourinary: Yes: WNL Musculoskeletal: Yes: WNL Edema: LLE: 1+, RLE: 1+ Neurological: Yes: Oriented Psychiatric: Yes: Oriented Labs: CBC, BMP 03/05/17 06:00 03/10/17 05:43 INR, PTT INR 1.13 (0.82-1.09) 03/04/17 11:10 Problem List - Problems (1) Heart failure Code(s): I50.9 - HEART FAILURE, UNSPECIFIED Qualifiers: Heart failure type: unspecified heart failure type Heart failure chronicity: unspecified heart failure chronicity Qualified Code(s): I50.9 - Heart failure, unspecified (2) Hypertensive urgency Code(s): I16.0 - HYPERTENSIVE URGENCY (3) Mitral regurgitation Code(s): I34.0 - NONRHEUMATIC MITRAL (VALVE) INSUFFICIENCY (4) Noncompliance Code(s): Z91.19 - PATIENT'S NONCOMPLIANCE W OTH MEDICAL TREATMENT AND REGIMEN (5) Proteinuria Code(s): R80.9 - PROTEINURIA, UNSPECIFIED (6) CKD (chronic kidney disease) Code(s): N18.9 - CHRONIC KIDNEY DISEASE, UNSPECIFIED Assessment/Plan Current Medications Generic Name Dose Route Start Last Admin Trade Name Freq PRN Reason Stop Dose Admin Acetaminophen 650 mg 03/08/17 23:48 03/08/17 22:00 Tylenol - PO 650 mg Q6H PRN Administration FEVER OR PAIN Amlodipine Besylate 10 mg 03/06/17 12:34 03/10/17 09:55 Norvasc - PO 10 mg DAILY [facility] Administration Carvedilol 6.25 mg 03/06/17 10:00 03/10/17 09:55 Coreg - PO 6.25 mg BID [facility] Administration Enoxaparin Sodium 40 mg 03/06/17 10:00 03/10/17 09:54 Lovenox - SQ 40 mg DAILY [facility] Administration Furosemide 40 mg 03/10/17 10:00 03/10/17 09:57 Lasix - PO 40 mg DAILY [facility] Administration Hydralazine HCl 10 mg 03/06/17 10:00 03/10/17 09:55 Apresoline - PO 10 mg BID [facility] Administration Isosorbide Mononitrate 30 mg 03/07/17 14:00 03/10/17 09:55 Imdur - PO 30 mg DAILY [facility] Administration Losartan Potassium 100 mg 03/07/17 13:45 03/10/17 09:55 Cozaar - PO 100 mg DAILY [facility] Administration Magnesium Oxide 400 mg 03/05/17 12:45 08/01/17 09:55 Mag-Ox - PO 400 mg BID [facility] Administration Spironolactone 25 mg 03/06/17 10:00 03/10/17 09:55 Aldactone - PO 25 mg DAILY [facility] Administration Selected Entries 03/10/17 03/10/17 03/10/17 02:00 06:00 11:16 Blood Pressure 130/79 135/81 141/76 Laboratory Tests 03/10/17 05:43 Magnesium 2.5 H D Impression 1. HTN 2. CHF 3. proteinuria - improved 4. CKD 5. JARRELL on ultrasound Plan - renal scan reviewed, left kidney 59 percent and right kidney 41 percent of renal function. These are viable kidneys - cont current meds - bp is improving - cardiology input appreciated - will see pt as outpt - discussed low sodium diet - volume status is improving - stop mag supplements as level is high - will follow Dr Gregorio
[2017-03-11 08:11] LABS: ANION GAP 9 (8-16); CALCIUM 9.1 mg/dL (8.5-10.1); CO2 29 mmol/L (21-32); CREATININE 0.9 mg/dL (0.7-1.3); GLUCOSE,RANDOM 84 mg/dL (74-106)
[2017-03-11] MEDS: hydrALAZINE HCL 10 MG TABLET PO SCH ×2 (09:17→13:28)
[2017-03-11] MEDS: SPIRONOLACTONE 25 MG TABLET (FP) PO SCH ×2 (09:17→13:29)
[2017-03-11] MEDS: LOSARTAN POTASSIUM 50 MG TABLET (FP) PO SCH ×2 (09:18→13:29)
[2017-03-11] MEDS: CARVEDILOL 6.25 MG TABLET (FP) PO SCH ×2 (09:18→13:28)
[2017-03-11] MEDS: FUROSEMIDE 40 MG TABLET (FP) PO SCH ×2 (09:19→13:29)
[2017-03-11] MEDS: ISOSORBIDE MONONITRATE 30 MG TAB.SR.24H (FP) PO SCH ×2 (09:19→13:30)
[2017-03-11] MEDS: amLODIPine BESYLATE 10 MG TABLET (FP) PO SCH ×2 (09:20→13:29)
[2017-03-11] MEDS: ENOXAPARIN NA (PORCINE) 40 MG/0.4 ML DISP.SYRIN SQ SCH ×2 (09:20→13:31)
--- NOTE | 2017-03-11 11:48 | PN ---
Progress Note (short form) - Note Progress Note: Vital Signs - 24 hr 03/10/17 03/10/17 03/10/17 14:07 17:00 21:00 Temperature 97.7 F 98.3 F Pulse Rate 84 92 H Respiratory 18 18 Rate Blood Pressure 104/58 136/95 O2 Sat by Pulse 98 Oximetry (%) 03/11/17 03/11/17 03/11/17 02:48 06:00 09:00 Temperature 98.5 F 97.9 F Pulse Rate 87 91 H Respiratory 18 18 Rate Blood Pressure 121/77 132/89 O2 Sat by Pulse 97 97 Oximetry (%) 03/11/17 10:00 Temperature 97 F L Pulse Rate 82 Respiratory 20 Rate Blood Pressure 136/90 O2 Sat by Pulse Oximetry (%) Current Medications Generic Name Dose Route Start Last Admin Trade Name Freq PRN Reason Stop Dose Admin Acetaminophen 650 mg 03/08/17 23:48 03/08/17 22:00 Tylenol - PO 650 mg Q6H PRN Administration FEVER OR PAIN Amlodipine Besylate 10 mg 03/06/17 12:34 03/11/17 09:20 Norvasc - PO Not Given DAILY [facility] Carvedilol 6.25 mg 03/06/17 10:00 03/11/17 09:18 Coreg - PO Not Given BID [facility] Enoxaparin Sodium 40 mg 03/06/17 10:00 03/11/17 09:20 Lovenox - SQ Not Given DAILY [facility] Furosemide 40 mg 03/10/17 10:00 03/11/17 09:19 Lasix - PO Not Given DAILY [facility] Hydralazine HCl 10 mg 03/06/17 10:00 03/11/17 09:17 Apresoline - PO Not Given BID [facility] Isosorbide Mononitrate 30 mg 03/07/17 14:00 03/11/17 09:19 Imdur - PO Not Given DAILY [facility] Losartan Potassium 100 mg 03/07/17 13:45 03/11/17 09:18 Cozaar - PO Not Given DAILY [facility] Spironolactone 25 mg 03/06/17 10:00 03/11/17 09:17 Aldactone - PO Not Given DAILY [facility] Laboratory Results - last 24 hr 03/07/17 03/11/17 05:35 05:35 Sodium 141 Potassium 4.4 Chloride 103 Carbon Dioxide 29 Anion Gap 9 BUN 25 H D Creatinine 0.9 Random Glucose 84 Calcium 9.1 GLENDA Screen Negative Problem List - Problems (1) Heart failure Code(s): I50.9 - HEART FAILURE, UNSPECIFIED Qualifiers: Heart failure type: unspecified heart failure type Heart failure chronicity: unspecified heart failure chronicity Qualified Code(s): I50.9 - Heart failure, unspecified (2) Hypertensive urgency Code(s): I16.0 - HYPERTENSIVE URGENCY (3) Noncompliance Code(s): Z91.19 - PATIENT'S NONCOMPLIANCE W OTH MEDICAL TREATMENT AND REGIMEN (4) Mitral regurgitation Code(s): I34.0 - NONRHEUMATIC MITRAL (VALVE) INSUFFICIENCY (5) Renal artery stenosis Code(s): I70.1 - ATHEROSCLEROSIS OF RENAL ARTERY
--- NOTE | 2017-03-11 13:26 | PN ---
Progress Note, Physician History of Present Illness: seen and examined today in [facility]. no overnight events. no new complaints. - Current Medication List Current Medications: Active Medications Acetaminophen (Tylenol -) 650 mg PO Q6H PRN PRN Reason: FEVER OR PAIN Last Admin: 03/08/17 22:00 Dose: 650 mg Amlodipine Besylate (Norvasc -) 10 mg PO DAILY [facility] Last Admin: 03/11/17 09:20 Dose: Not Given Carvedilol (Coreg -) 6.25 mg PO BID [facility] Last Admin: 03/11/17 09:18 Dose: Not Given Enoxaparin Sodium (Lovenox -) 40 mg SQ DAILY [facility] Last Admin: 03/11/17 09:20 Dose: Not Given Furosemide (Lasix -) 40 mg PO DAILY [facility] Last Admin: 03/11/17 09:19 Dose: Not Given Hydralazine HCl (Apresoline -) 10 mg PO BID [facility] Last Admin: 03/11/17 09:17 Dose: Not Given Isosorbide Mononitrate (Imdur -) 30 mg PO DAILY [facility] Last Admin: 03/11/17 09:19 Dose: Not Given Losartan Potassium (Cozaar -) 100 mg PO DAILY [facility] Last Admin: 03/11/17 09:18 Dose: Not Given Spironolactone (Aldactone -) 25 mg PO DAILY [facility] Last Admin: 03/11/17 09:17 Dose: Not Given - Objective Vital Signs: Vital Signs Temperature 97 F L 03/11/17 10:00 Pulse Rate 82 03/11/17 10:00 Respiratory Rate 20 03/11/17 10:00 Blood Pressure 136/90 03/11/17 10:00 O2 Sat by Pulse Oximetry (%) 97 03/11/17 09:00 Constitutional: Yes: Well Nourished, No Distress, Calm Eyes: Yes: WNL, Conjunctiva Clear, EOM Intact, PERRL HENT: Yes: WNL, Atraumatic, Normocephalic Neck: Yes: WNL, Supple, Trachea Midline Cardiovascular: Yes: WNL, Regular Rate and Rhythm, Murmur, S1, S2. No: Bradycardia, Tachycardia, Pulse Irregular, Bruit, JVD, Gallop, Rub, S3, S4, Varicosities Respiratory: Yes: WNL, Regular, CTA Bilaterally. No: Rales, Rhonchi, Wheezes Gastrointestinal: Yes: WNL, Normal Bowel Sounds, Soft. No: Distention, Tenderness Musculoskeletal: Yes: WNL Extremities: Yes: WNL Edema: No Peripheral Pulses WNL: Yes Peripheral Pulses: Left Doralis Pedis: 2+, Right Dorsalis Pedis: 2+ Integumentary: Yes: WNL Neurological: Yes: WNL, Alert, Oriented ...Motor Strength: WNL Psychiatric: Yes: Alert, Oriented Labs: CBC, BMP 03/05/17 06:00 03/11/17 05:35 INR, PTT INR 1.13 (0.82-1.09) 03/04/17 11:10 - ....Imaging Chest X-ray: Report Reviewed, Image Reviewed EKG: Report Reviewed, Image Reviewed Other: Report Reviewed, Image Reviewed (tele-nsr, brief PSVT episodes) Assessment/Plan IMP: Hypertensive urgency in setting medication non-adherence Acute on chronic combined systolic and diastolic CHF, probably due to uncontrolled HTN Cardiomyopathy MR/AR RBBB, chronic Murmur PSVT REC: 1. Hypertensive urgency: significantly improved, close to skilled nursing goal -Cont Coreg 6.25mg bid, Hydralazine 10mg bid, Losartan 100mg daily, Imdur 30mg daily, Spironolactone 25mg daily, Norvasc 10mg daily -Enalapril was changed to Losartan due to cough 2. Acute on chronic combined systolic and diastolic CHF: newly discovered severe LV dysfx-likely due to uncontrolled HTN -currently euvolemic -cont Lasix 40mg po daily as well as other medications as above -most likely cardiomyopathy is secondary to uncontrolled HTN however will evaluate for ischemia with nuclear stress test today -cont optimal medical therapy and will need to re-evaluate LVEF in 3 months for consideration for ICD (presuming no ischemia on stress test) 3. RBBB: -Chronic, seen on ECG 2011 -no further work up needed at this time 4. PSVT-brief self limited, asymptomatic -cont bblocker -can be evaluated further as outpatient 5. Murmur: newly found moderate to severe MR, moderate AR, and cardiomyopathy -MR severity may be overestimated in this setting of volume overload and uncontrolled HTN -plan to repeat echo when euvolemic and BP well controlled as it may improve with optimized hemodynamics., this can be done as outpatient If no ischemia on nuclear stress test today, pt would be acceptable from a cardiac standpoint for discharge home with a plan for very close outpatient follow up for further management and work up
[2017-03-11 13:27] LABS: MAGNESIUM 2.4 mg/dL (1.8-2.4)
--- NOTE | 2017-03-11 15:17 | PN ---
Progress Note (short form) - Note Progress Note: Stress test results reviewed. Pt did not achieve Target heart rate and test was not converted to pharmacological. While this helps to confirm that this is a non -ischemic cardiomyopathy, cannot completely make that determination as target heart rate was not achieved. -Pt is acceptable for discharge as long as very close outpatient follow up is ensured. Will consider additional evaluation of coronary anatomy as outpatient with either CTA coronaries or cardiac cath. -remainder of plan as per my full note today.
--- NOTE | 2017-03-11 16:11 | DS ---
Physical Examination Vital Signs: Vital Signs Temperature 98.2 F 03/11/17 14:20 Pulse Rate 96 H 03/11/17 14:20 Respiratory Rate 20 03/11/17 14:20 Blood Pressure 140/96 03/11/17 14:20 O2 Sat by Pulse Oximetry (%) 97 03/11/17 09:00 Labs: CBC, BMP 03/05/17 06:00 03/11/17 05:35 Discharge Summary Reason For Visit: HEART FAILURE Current Active Problems CKD (chronic kidney disease) (Acute) Heart failure (Acute) Hypertensive urgency (Acute) Mitral regurgitation (Acute) Noncompliance (Acute) Proteinuria (Acute) Renal artery stenosis (Acute) Systolic and diastolic CHF, chronic (Acute) Condition: Stable - Instructions Referrals: Clint Nation MD [Primary Care Provider] - - Home Medications Comprehensive Discharge Medication List: Ambulatory Orders NK [No Known Home Medication] 03/04/17
[2017-03-11 21:08] VITALS: BP 120/70; PULSE 85; TEMP 98
== END 2017-03-11 18:58 | disposition home or self-care (01) | DRG 304 ==
LOC: JER 10:29 → JERBED 12:00 → J7W 13:30 → J4W 03-05 14:01
PROVIDERS: ADMIT Internal Medicine; ATTEND Internal Medicine
DX: I16.0 Hypertensive urgency (principal); I50.43 Acute on chronic combined systolic (congestive) and diastolic (congestive) heart failure; I42.8 Other cardiomyopathies; I47.1 Supraventricular tachycardia; I13.0 Hypertensive heart and chronic kidney disease with heart failure and stage 1 through stage 4 chronic kidney disease, or unspecified chronic kidney disease; N18.9 Chronic kidney disease, unspecified; I45.19 Other right bundle-branch block; R01.1 Cardiac murmur, unspecified; I34.0 Nonrheumatic mitral (valve) insufficiency; R80.9 Proteinuria, unspecified; I70.1 Atherosclerosis of renal artery; Z91.19 Patient's noncompliance with other medical treatment and regimen
CPT/HCPCS: 36415; 71010-TC; 76775-TC; 78452-TC; 78708-TC; 80048; 80053; 80061; 81003; 81015; 82550; 82570; 83036; 83721; 83735; 83880; 84156; 84443; 84484; 84585; 85025; 85027; 85610; 86038; 93005; 93010; 93017; 93306-TC; 93975; 99283-25; A9502; A9562

== ENCOUNTER 2017-10-22 18:19 | Emergency (ER) | payer OTHER ==
--- NOTE | 2017-10-22 18:32 | PDOC ---
Rapid Medical Evaluation Time Seen by Provider: 10/22/17 18:32 Medical Evaluation: Allergies Allergy/AdvReac Type Severity Reaction Status Date / Time amoxicillin Allergy Verified 03/04/17 10:59 10/22/17 18:33 42 year male with HTN (on 4 meds) presenting with one week of worsening penile "numbness" and difficulty urinating. Complains that his penis is smaller than usual. No fevers/chills. Denies pain. BP 182/124, 162/100 on re-check -Basic labs -UA/culture -To Main ED for further evaluation
[2017-10-22 18:37] VITALS: BP 162/100; PULSE 89; TEMP 97.9; BMI 29.2
[2017-10-22 20:51] LABS: BASO % 0.4 % (0-2.0); EOS % 0.3 % (0-4.5); HEMATOCRIT 46.7 % (35.4-49); HEMOGLOBIN 16.2 GM/dL (11.7-16.9); LYMPH % 28.3 % (8-40); MCH 32.2 pg (25.7-33.7); MCHC 34.8 g/dl (32.0-35.9); MEAN CELL VOLUME 92.6 fl (80-96); MEAN PLT VOLUME 8.1 fl (7.5-11.1); MONO % 6.9 % (3.8-10.2); NEUT % 64.1 % (42.8-82.8); PLATELET COUNT 230 K/MM3 (134-434); RBC 5.04 M/mm3 (4.00-5.60); RDW 13.4 % (11.9-15.9); WHITE BLOOD COUNT 12.3 K/mm3 (4.0-10.0)
[2017-10-22 20:53] LABS: URINE APPEARANCE CLEAR; URINE BILIRUBIN NEGATIVE (NEGATIVE); URINE BLOOD NEGATIVE (NEGATIVE); URINE COLOR YELLOW; URINE GLUCOSE (UA) NEGATIVE (NEGATIVE); URINE KETONE TRACE (NEGATIVE); URINE LEUK ESTERASE NEGATIVE (NEGATIVE); URINE NITRITE NEGATIVE (NEGATIVE); URINE UROBILINOGEN NEGATIVE mg/dL (0.2-1.0)
[2017-10-22 20:57] LABS: URINE PROTEIN 2+ (NEGATIVE)
[2017-10-22 20:59] LABS: EPI CELLS RARE /HPF (FEW); URINE HYALINE CAST 1 /lpf; URINE MUCUS RARE
[2017-10-22 21:47] LABS: ANION GAP 10 (8-16); BLOOD UREA NITROGEN 16 mg/dL (7-18); CALCIUM 9.8 mg/dL (8.5-10.1); CHLORIDE 101 mmol/L (98-107); CO2 28 mmol/L (21-32); CREATININE 0.9 mg/dL (0.7-1.3); GLUCOSE,RANDOM 108 mg/dL (74-106); POTASSIUM 3.5 mmol/L (3.5-5.1); SODIUM 139 mmol/L (136-145)
--- NOTE | 2017-10-22 23:40 | PDOC ---
History of Present Illness - General History Source: Patient Exam Limitations: No Limitations - History of Present Illness Initial Comments: 10/22/17 23:54 The patient is a 42-year-old male, with a significant past medical history of HTN, who presents to the ED with a 1-week history of difficulty urinating. The patient states that he has noted that his penis is "shrinking" which has made it difficult for him to urinate; denies any dysuria, hematuria, or frequency. As per mother, the patient visited the ED back in February for an enlarged penis which they believed was due to his kidneys. Pt received a CT scan of his kidneys which was normal. The patient denies any fever, chills, nausea, vomiting, diarrhea, or abdominal pain. Denies any chest pain or shortness of breath. Allergies: amoxicillin Social History: No reported tobacco, alcohol, or drug use. Surgical History: Ligament repair PCP: Dr. Nation <Ronda Javier - Last Filed: 10/22/17 23:54> - General History Source: Patient <Godwin Parry - Last Filed: 10/23/17 00:14> - General Chief Complaint: Urinary Problem Stated Complaint: URINARY PROBLEM/PENILE NUMBNESS Time Seen by Provider: 10/22/17 18:32 Past History <Ronda Javier - Last Filed: 10/22/17 23:54> - Past Medical History Anemia: No Asthma: No Cancer: No Cardiac Disorders: No CVA: No COPD: No CHF: No Dementia: No Diabetes: No GI Disorders: No Disorders: No HTN: Yes Hypercholesterolemia: No Liver Disease: No Seizures: No Thyroid Disease: No - Surgical History Abdominal Surgery: No Appendectomy: No Cardiac Surgery: No Cholecystectomy: No Lung Surgery: No Neurologic Surgery: No Orthopedic Surgery: Yes (LIGAMENTS REPAIRED) - Suicide/Smoking/Psychosocial Hx Smoking Status: No Smoking History: Never smoked Have you smoked in the past 12 months: No Number of Cigarettes Smoked Daily: 0 Information on smoking cessation initiated: No Hx Alcohol Use: No Drug/Substance Use Hx: No Substance Use Type: None <Godwin Parry - Last Filed: 10/23/17 00:14> - Past Medical History Allergies/Adverse Reactions: Allergies Allergy/AdvReac Type Severity Reaction Status Date / Time amoxicillin Allergy Verified 10/22/17 18:37 Home Medications: Ambulatory Orders Amlodipine Besylate [Norvasc -] 10 mg PO DAILY #30 tablet 03/11/17 Carvedilol [Coreg -] 6.25 mg PO BID #60 tablet 03/11/17 Furosemide [Lasix -] 40 mg PO DAILY #30 tablet 03/11/17 Isosorbide Mononitrate [Imdur -] 30 mg PO DAILY #30 tab 03/11/17 Losartan Potassium [Cozaar -] 100 mg PO DAILY #30 tablet 03/11/17 Magnesium Oxide [Mag-Ox -] 400 mg PO BID #60 tablet 03/11/17 Spironolactone [Aldactone -] 25 mg PO DAILY #30 tablet 03/11/17 hydrALAZINE HCL [Apresoline -] 10 mg PO BID #60 tablet 03/11/17 Clotrimazole [Clotrimazole AF] 28 gm TP BID #60 cream..g. 10/22/17 Review of Systems - Review of Systems Able to Perform ROS?: Yes Comments:: 10/22/17 23:54 CONSTITUTIONAL: Absent: fever, no chills, no fatigue EYES: Absent: visual changes ENT: Absent: ear pain, no sore throat CARDIOVASCULAR: Absent: chest pain, no palpitations RESPIRATORY: Absent: cough, no SOB GI: Absent: abdominal pain, no nausea, no vomiting, no constipation, no diarrhea GENITOURINARY: Present: difficulty urinating, penis "shrinkage" Absent: dysuria, no frequency, no hematuria MUSKULOSKELETAL: Absent: back pain, no arthralgia, no myalgia SKIN: Absent: rash NEURO: Absent: headache <Ronda Javier - Last Filed: 10/22/17 23:54> *Physical Exam - Vital Signs Last Vital Signs Temp Pulse Resp BP Pulse Ox 97.9 F 89 19 162/100 100 10/22/17 18:34 10/22/17 18:34 10/22/17 18:34 10/22/17 18:34 10/22/17 18:34 - Physical Exam Comments: 10/22/17 23:55 GENERAL: Well-appearing, well-nourished. No apparent distress. HEENT: Normocephalic, atraumatic. PERRL, EOM intact. CARDIOVASCULAR: Normal S1, S2. Regular rate and rhythm. PULMONARY: Clear to auscultation bilaterally. ABDOMEN: Soft, non-distended, non-tender. EXTREMITIES: Normal ROM in all four extremities. No gross deformities. SKIN: Warm, dry. No rash NEUROLOGICAL: No focal neurological deficits. Genital Exam: Patient is uncircumcised. Minimal erythema of foreskin, no region on penile glands. No masses or hernia within the scrotum. Testicals are nontender. No discharge. <Ronda Javier - Last Filed: 10/22/17 23:54> - Vital Signs Last Vital Signs Temp Pulse Resp BP Pulse Ox 97.9 F 89 19 162/100 100 10/22/17 18:34 10/22/17 18:34 10/22/17 18:34 10/22/17 18:34 10/22/17 18:34 <Godwin Parry - Last Filed: 10/23/17 00:14> ED Treatment Course - LABORATORY CBC & Chemistry Diagram: 10/22/17 20:31 10/22/17 20:31 - ADDITIONAL ORDERS Additional order review: Laboratory Results 10/22/17 10/22/17 20:34 20:31 Sodium 139 Potassium 3.5 Chloride 101 Carbon Dioxide 28 Anion Gap 10 BUN 16 Creatinine 0.9 Random Glucose 108 H Calcium 9.8 Urine Color Yellow Urine Appearance Clear Urine pH 5.0 Ur Specific [place] 1.025 Urine Protein 2+ H Urine Glucose (UA) Negative Urine Ketones Trace H Urine Blood Negative Urine Nitrite Negative Urine Bilirubin Negative Urine Urobilinogen Negative Ur Leukocyte Esterase Negative Urine WBC (Auto) 1 Urine RBC (Auto) <1 Ur Epithelial Cells Rare Hyaline Casts 1 Urine Mucus Rare 10/22/17 20:31 RBC 5.04 MCV 92.6 MCHC 34.8 RDW 13.4 D MPV 8.1 Neutrophils % 64.1 Lymphocytes % 28.3 Monocytes % 6.9 Eosinophils % 0.3 Basophils % 0.4 <Ronda Javier - Last Filed: 10/22/17 23:54> - LABORATORY CBC & Chemistry Diagram: 10/22/17 20:31 10/22/17 20:31 - ADDITIONAL ORDERS Additional order review: Laboratory Results 10/22/17 10/22/17 20:34 20:31 Sodium 139 Potassium 3.5 Chloride 101 Carbon Dioxide 28 Anion Gap 10 BUN 16 Creatinine 0.9 Random Glucose 108 H Calcium 9.8 Urine Color Yellow Urine Appearance Clear Urine pH 5.0 Ur Specific [place] 1.025 Urine Protein 2+ H Urine Glucose (UA) Negative Urine Ketones Trace H Urine Blood Negative Urine Nitrite Negative Urine Bilirubin Negative Urine Urobilinogen Negative Ur Leukocyte Esterase Negative Urine WBC (Auto) 1 Urine RBC (Auto) <1 Ur Epithelial Cells Rare Hyaline Casts 1 Urine Mucus Rare 10/22/17 20:31 RBC 5.04 MCV 92.6 MCHC 34.8 RDW 13.4 D MPV 8.1 Neutrophils % 64.1 Lymphocytes % 28.3 Monocytes % 6.9 Eosinophils % 0.3 Basophils % 0.4 <Godwin Parry - Last Filed: 10/23/17 00:14> Medical Decision Making - Medical Decision Making 10/23/17 00:14 Dr. Parry: The scribe's documentation has been prepared under my direction and personally reviewed by me in its entirery. I confirm that the note above accurately reflects all work, treatment, procedures, and medical decision making performed by me. <Godwin Parry - Last Filed: 10/23/17 00:14> *DC/Admit/Observation/Transfer - Attestations Scribe Attestion: 10/22/17 23:58 Documentation prepared by Ronda Javier, acting as medical insurance clerk for Godwin Paryr MD. <Ronda Javier - Last Filed: 10/22/17 23:54> - Discharge Dispostion Admit: No <Godwin Parry - Last Filed: 10/23/17 00:14> Diagnosis at time of Disposition: Tinea cruris - Discharge Dispostion Disposition: HOME Condition at time of disposition: Stable - Prescriptions Prescriptions: Clotrimazole [Clotrimazole AF] 28 gm TP BID #60 cream..g. - Referrals Referrals: Clint Nation MD [Primary Care Provider] - Geronimo De La Torre MD., [Staff Physician] - - Patient Instructions Printed Discharge Instructions: Tinea Cruris: AKA Oswaldo Itch, DI for Tinea Corporis Additional Instructions: Please follow up with the urologist referred to you in the hospital. clean area well. dry area, and apply cream twice daily Print Language: IVORIAN - Post Discharge Activity
[2017-10-22] MEDS ORDERED: CLOTRIMAZOLE 1% CREAM 15 GM TUBE TP SCH (23:45)
== END 2017-10-23 00:33 | disposition home or self-care (01) ==
LOC: JER 18:19
DX: B35.6 Tinea cruris (principal); I10 Essential (primary) hypertension
CPT/HCPCS: 36415; 80048; 81003; 81015; 85025; 87086; 99281-25

== ENCOUNTER 2018-10-16 12:53 | Inpatient (IN) | payer OTHER ==
--- NOTE | 2018-10-16 13:59 | PDOC ---
History of Present Illness - General Stated Complaint: URINARY RETENTION Time Seen by Provider: 10/16/18 13:58 History Source: Patient Exam Limitations: No Limitations - History of Present Illness Initial Comments: Pt is a 43 yo M, with PMH of HTN and dCHF (EF ~40%), who is presenting with complaints of urinary retention and penile swelling x4 days with associated worsening abdominal distension and nausea. Pt denies any penile or testicular pain, but has noticed a few drops of blood from the urethra yesterday. Pt has not tolerated PO food or fluid intake since yesterday, due to distension in his abdomen and nausea. Pt had a BM yesterday morning which was normal for him and has not been constipated. Pt was seen in 2017 and 2018 for similar issues, but at that time was associated with b/l LE edema as well, and improved after diuresis. There have been no recent changes to his medication, and he denies any recent intake of OTC medications other than tylenol for discomfort. Pt denies any fevers/chills, headache, vision changes, syncope, chest pain, palpitations, SOB, vomiting, abdominal pain, diarrhea/constipation, or leg swelling. Social: Pt denies any cigarette, alcohol, or drug use. Pt denies any recent travel or sick contacts. Surgical: no relevant history. Family: no relevant history. 10/16/18 18:55 Past History - Travel Traveled outside of the country in the last 30 days: No Close contact w/someone who was outside of country & ill: No - Past Medical History Allergies/Adverse Reactions: Allergies Allergy/AdvReac Type Severity Reaction Status Date / Time amoxicillin Allergy Verified 10/16/18 13:26 Home Medications: Ambulatory Orders Labetalol HCl 300 mg PO DAILY 10/16/18 Losartan Potassium [Cozaar] 100 mg PO DAILY 10/16/18 Nifedipine [Adalat cc] 30 mg PO DAILY 10/16/18 Anemia: No Asthma: No Cancer: No Cardiac Disorders: No CVA: No COPD: No CHF: No Dementia: No Diabetes: No GI Disorders: No Disorders: No HTN: Yes Hypercholesterolemia: No Liver Disease: No Seizures: No Thyroid Disease: No - Surgical History Abdominal Surgery: No Appendectomy: No Cardiac Surgery: No Cholecystectomy: No Lung Surgery: No Neurologic Surgery: No Orthopedic Surgery: Yes (LIGAMENTS REPAIRED) - Suicide/Smoking/Psychosocial Hx Smoking Status: No Smoking History: Never smoked Have you smoked in the past 12 months: No Number of Cigarettes Smoked Daily: 0 Hx Alcohol Use: No Drug/Substance Use Hx: No Substance Use Type: None Review of Systems - Review of Systems Able to Perform ROS?: Yes Is the patient limited Surinamese proficient: No Constitutional: Yes: Weight Stable. No: Chills, Diaphoresis, Fever, Loss of Appetite, Malaise, Weakness HEENTM: No: Blurred Vision, Recent change in vision, Nose Pain, Nose Congestion , Throat Pain, Throat Swelling, Difficulty Swallowing, Mouth Swelling Respiratory: No: Cough, Shortness of Breath Cardiac (ROS): No: Chest Pain, Edema, Irregular Heart Rate, Lightheadedness, Palpitations, Syncope, Chest Tightness ABD/GI: Yes: Abdominal Distended, Nausea, Poor Appetite, Poor Fluid Intake. No : Abd. Pain w/ defecation, Blood Streaked Bowels, Constipated, Diarrhea, Rectal Bleeding, Vomiting, Abdominal cramping : Yes: See HPI, Other (urinary retention, penile swelling). No: Burning, Dysuria, Discharge, Frequency, Flank Pain, Incontinence, Testicular Pain Musculoskeletal: No: Back Pain, Joint Pain, Muscle Weakness Integumentary: Yes: See HPI. No: Rash Neurological: No: Headache, Numbness, Paresthesia, Weakness, Dizziness Psychiatric: No: Sleep Pattern Change, Change in Appetite Endocrine: No: Increased Urine, Change in Weight Hematologic/Lymphatic: No: Anemia, Blood Clots, Easy Bleeding, Easy Bruising *Physical Exam - Vital Signs Last Vital Signs Temp Pulse Resp BP Pulse Ox 98.2 F 100 H 19 189/116 H 99 10/16/18 13:31 10/16/18 13:31 10/16/18 13:31 10/16/18 13:31 10/16/18 13:31 - Physical Exam Comments: HTN 189/116, HR 100, pt afebrile. Pt appears mildly uncomfortable, but NAD and can lie flat. Normal body habitus. PE showed pt alert and oriented. 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 Eyes PERRLA, EOMI. Oropharynx without erythema or exudates, no LAD b/l. No nasal congestion, hearing intact. Clear heart sounds, S1/S2, no JVD, b/l pedal edema, or heart murmur. Clear lung sounds, no respiratory distress, wheezes, crackles, or accessory muscle use. Abdominal distension, but no tenderness, no rebound, no guarding. Abdomen soft, distended, and with normoactive bowel sounds. No tenderness to penis or testicles. Testicular fluctuant edema with no erythema or rash, foreskin can be retracted. Skin without jaundice or rash. 10/16/18 19:29 Moderate Sedation - Procedure Monitoring Vital Signs: Procedure Monitoring Vital Signs Temperature 98.2 F 10/16/18 13:31 Pulse Rate 100 H 10/16/18 13:31 Respiratory Rate 19 10/16/18 13:31 Blood Pressure 189/116 H 10/16/18 13:31 O2 Sat by Pulse Oximetry (%) 99 10/16/18 13:31 ED Treatment Course - LABORATORY CBC & Chemistry Diagram: 10/16/18 14:55 10/16/18 14:55 Medical Decision Making - Medical Decision Making Pt was seen at bedside, also will be seen by attending Dr. Richter. Pt presenting with complaints of urinary retention x4 days with associated worsening abdominal distension and nausea. Pt denies any penile or testicular pain, but has noticed a few drops of blood from the urethra yesterday. Pt has not tolerated PO food or fluid intake since yesterday, due to distension in his abdomen and nausea. Pt had a BM yesterday morning which was normal for him and has not been constipated. Pt was seen in 2017 and 2018 for similar issues, but at that time was associated with b/l LE edema as well, and improved after diuresis. Pt denies any fevers/chills, headache, vision changes, syncope, chest pain, palpitations, SOB, vomiting, abdominal pain, diarrhea/constipation, or leg swelling. HTN 189/116, HR 100, pt afebrile. Pt appears mildly uncomfortable, but NAD and can lie flat. Normal body habitus. PE showed pt alert and oriented. 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 Eyes PERRLA, EOMI. Oropharynx without erythema or exudates, no LAD b/l. No nasal congestion, hearing intact. Clear heart sounds, S1/S2, no JVD, b/l pedal edema, or heart murmur. Clear lung sounds, no respiratory distress, wheezes, crackles, or accessory muscle use. Abdominal distension, but no tenderness, no rebound, no guarding. Abdomen soft, distended, and with normoactive bowel sounds. No tenderness to penis or testicles. Testicular fluctuant edema with no erythema or rash, foreskin can be retracted. Skin without jaundice or rash. Considering urinary retention 2/2 penile swelling vs obstructing stone vs mass ( renal, prostatic) Ordered work-up including CBC, CMP, UA, urine culture. Will continue to reassess pt and monitor for symptomatic improvement. Calling urology for consult to determine bailey placement. 10/16/18 15:02 Bailey catheter placed with no urine output. Bedside US showed no significant bladder volume of retained fluid, moderate hydronephrosis noted bilaterally. Will fluid hydrate pending results of scan (r/o large obstructing mass). Ordered non-contrast abd/pelvis CT scan. Pt taken for CT scan. 10/16/18 17:15 10/16/18 18:48 CBC WNL CMP: Na 130, BUN 102 Cr 19.6 (baseline <1.0) Providing pt 500 mL IV NS running slowly. 10/16/18 19:16 CT: Findings: There is diffuse anasarca. There is a small right and tiny left pleural effusions. There is a trace of free fluid within the abdomen and pelvis. There is no free intra-abdominal gas. The liver, gallbladder, adrenals, pancreas, and spleen are unremarkable. There is bilateral perinephric fat stranding which is nonspecific. At the left ureteropelvic junction there is a 0.7 cm stone which may be causing mild hydronephrosis.. There are least 5 left-sided nonobstructive renal calculi the largest of which measures 0.5 cm in diameter. There are least 5 right-sided nonobstructive renal calculi the largest of which measures 0.5 cm in diameter. There is mild right-sided hydronephrosis. There are at least 3 renal calculi within the distal aspect of the right ureter measuring up to 0.3 cm in diameter. The bilateral kidneys are otherwise unremarkable, given limitations of a nonenhanced CT. There is a Bailey catheter within the urinary bladder. There are no enlarged abdominal or pelvic lymph nodes, by size criteria. The bowel is grossly unremarkable. There is a small umbilical hernia containing omental fat. The visualized bony structures are unremarkable for the patient's age. 10/16/18 19:19 Paging hospitalist team for admission. Pt signed out to Dr. Nunez. 10/16/18 19:20 *DC/Admit/Observation/Transfer Diagnosis at time of Disposition: Penile swelling, Urinary retention - Discharge Dispostion Condition at time of disposition: Stable Decision to Admit order: Yes - Referrals Referrals: Clint Nation MD [Primary Care Provider] - - Patient Instructions - Post Discharge Activity
[2018-10-16 15:17] LABS: BASO % 0.5 % (0-2.0); EOS % 0.6 % (0-4.5); HEMATOCRIT 37.5 % (35.4-49); LYMPH % 12.9 % (8-40); MCH 30.3 pg (25.7-33.7); MCHC 34.7 g/dl (32.0-35.9); MEAN CELL VOLUME 87.3 fl (80-96); MEAN PLT VOLUME 8.6 fl (7.5-11.1); MONO % 7.2 % (3.8-10.2); NEUT % 78.8 % (42.8-82.8); PLATELET COUNT 321 K/MM3 (134-434); RBC 4.29 M/mm3 (4.00-5.60); RDW 14.6 % (11.9-15.9); WHITE BLOOD COUNT 9.7 K/mm3 (4.0-10.0)
[2018-10-16 15:30] LABS: ALBUMIN 2.8 g/dl (3.4-5.0); ALK PHOS 84 U/L (45-117); ANION GAP 17 MMOL/L (8-16); BILIRUBIN,TOTAL 0.5 mg/dL (0.2-1); BLOOD UREA NITROGEN 102 mg/dL (7-18); CALCIUM 8.7 mg/dL (8.5-10.1); CHLORIDE 97 mmol/L (98-107); CO2 17 mmol/L (21-32); GLUCOSE,RANDOM 77 mg/dL (74-106); POTASSIUM 5.1 mmol/L (3.5-5.1); SGOT/AST 10 U/L (15-37); SGPT/ALT 15 U/L (13-61); SODIUM 130 mmol/L (136-145); TOT PROT 6.6 g/dl (6.4-8.2)
[2018-10-16 15:32] LABS: CREATININE 19.6 mg/dL (0.55-1.3)
--- NOTE | 2018-10-16 16:35 | PDOC ---
Attending Attestation - Resident Resident Name: Carrol Grimaldo - ED Attending Attestation I have performed the following: I have examined & evaluated the patient, The case was reviewed & discussed with the resident, I agree w/resident's findings & plan, Exceptions are as noted - HPI HPI: 10/16/18 16:29 The patient is a 42-year-old male with a significant PMH of HTN and CHF (EF 2017 40%, not on diuretics) who presents to the ED with urinary retention for the past 4 days. The patient also noticed that his penis was swollen and few drops of blood on it yesterday but denies any penile pain. Patient is also complaining of abdominal bloating and has not been eating or drinking as a result. Patient had similar symptoms approximately 1 year ago, and reports he was given a "pill to help him urinate." Patient called Dr. Nation yesterday, but did not have any appointments available prompting him to come to the ER for evaluation. Patient did not take his HTN meds today. The patient denies any fever, chills, nausea, vomiting, diarrhea, or abdominal pain. Denies any chest pain or shortness of breath. Allergies: amoxicillin Social History: No reported tobacco, alcohol, or drug use. Surgical History: Ligament repair PCP: Dr. Nation - Physicial Exam PE: 10/16/18 16:30 agree with resident exam - Medical Decision Making 10/16/18 16:30 43yo M presents to the ED with decreased UOP, penile edema Exam with edema around penis but able to retract foreskin to urethra. No scrotal ttp or edema Bedside sono with little urine in bladder but b/l hydro Solorio passed easily with no UOP Pt is anuric Labs with creatinine of 19 Plan for CTAP non con for further evaluation, admit CTAP pending, pt signed out to Dr. Pfeiffer for further management and admission.
[2018-10-16] MEDS ORDERED: SODIUM CHLORIDE 500 ML IV STA (18:00)
--- NOTE | 2018-10-16 19:30 | PDOC ---
*Physical Exam - Vital Signs Last Vital Signs Temp Pulse Resp BP Pulse Ox 98.2 F 100 H 19 189/116 H 99 10/16/18 13:31 10/16/18 13:31 10/16/18 13:31 10/16/18 13:31 10/16/18 13:31 <Whitney Pfeiffer - Last Filed: 10/16/18 20:36> - Vital Signs Last Vital Signs Temp Pulse Resp BP Pulse Ox 98.2 F 100 H 19 189/116 H 99 10/16/18 13:31 10/16/18 13:31 10/16/18 13:31 10/16/18 13:31 10/16/18 13:31 <Alisa Nuenz - Last Filed: 10/16/18 21:28> ED Treatment Course - LABORATORY CBC & Chemistry Diagram: 10/16/18 14:55 10/16/18 14:55 - ADDITIONAL ORDERS Additional order review: Laboratory Results 10/16/18 14:55 Sodium 130 L Potassium 5.1 Chloride 97 L Carbon Dioxide 17 L Anion Gap 17 H BUN 102 H Creatinine 19.6 H* Creat Clearance w eGFR 2.61 Random Glucose 77 Calcium 8.7 Total Bilirubin 0.5 AST 10 L ALT 15 Alkaline Phosphatase 84 Total Protein 6.6 Albumin 2.8 L 10/16/18 14:55 RBC 4.29 MCV 87.3 MCHC 34.7 RDW 14.6 MPV 8.6 Neutrophils % 78.8 D Lymphocytes % 12.9 D Monocytes % 7.2 Eosinophils % 0.6 D Basophils % 0.5 - Medications Given in the ED: ED Medications Discontinued Medications Generic Name Dose Route Start Last Admin Trade Name Zackq PRN Reason Stop Dose Admin Sodium Chloride 500 mls @ 500 mls/hr 10/16/18 18:00 10/16/18 18:20 Normal Saline - IV 10/16/18 18:59 500 mls/hr ASDIR STA Administration Sodium Chloride 1,000 mls @ 115 mls/hr 10/16/18 19:45 10/16/18 20:12 Normal Saline - IV Not Given ASDIR JENNIFER Lisinopril 20 mg 10/16/18 20:26 10/16/18 20:32 Prinivil PO 10/16/18 20:27 Not Given ONCE ONE <Whitney Pfeiffer - Last Filed: 10/16/18 20:36> - LABORATORY CBC & Chemistry Diagram: 10/16/18 14:55 10/16/18 14:55 - ADDITIONAL ORDERS Additional order review: Laboratory Results 10/16/18 14:55 Sodium 130 L Potassium 5.1 Chloride 97 L Carbon Dioxide 17 L Anion Gap 17 H BUN 102 H Creatinine 19.6 H* Creat Clearance w eGFR 2.61 Random Glucose 77 Calcium 8.7 Total Bilirubin 0.5 AST 10 L ALT 15 Alkaline Phosphatase 84 Total Protein 6.6 Albumin 2.8 L 10/16/18 14:55 RBC 4.29 MCV 87.3 MCHC 34.7 RDW 14.6 MPV 8.6 Neutrophils % 78.8 D Lymphocytes % 12.9 D Monocytes % 7.2 Eosinophils % 0.6 D Basophils % 0.5 - Medications Given in the ED: ED Medications Discontinued Medications Generic Name Dose Route Start Last Admin Trade Name Freq PRN Reason Stop Dose Admin Sodium Chloride 500 mls @ 500 mls/hr 10/16/18 18:00 10/16/18 18:20 Normal Saline - IV 10/16/18 18:59 500 mls/hr ASDIR STA Administration <Alisa Nunez - Last Filed: 10/16/18 21:28> Medical Decision Making - Medical Decision Making 10/16/18 20:36 Dicussed pt at length with Dr. Lucero. CT shows multiple bilateral small stones and is not entirely consistent with obstruction. However, given his anuria and severe acute renal failure, he will place stents to relieve obstruction. Case discussed with anesthesia, who requested better BP control but feels comfortable providing general anesthesia despite his elevated BUN and Cr. <Whitney Pfeiffer - Last Filed: 10/16/18 20:36> - Medical Decision Making Patieng signed out from Dr. Grimaldo 43yo M with PMH of HTN, diastolic CHF presenting with urinary retention, penile swelling, abdominal distention. Urology is aware. CT Imaging show no obstructive stone Plan for admission Awaiting callback from hospitalist team 10/16/18 19:28 Maintenance fluids ordered, 115cc/hr 10/16/18 19:[address] Joann Ortega who accepted patient for admission under Dr. Foster 10/16/18 19:[address] Ayala 10/16/18 19:57 CK, pre-op labs, EKG ordered Discussed case with Dr. Ayala. Patient's workup is not entirely consistent with obstructive nephrolithiasis as the cause of patient's renal failure. However, given patient's risk of further renal function decline, Dr. Ayala will likely bring the patient to the OR. Nephrology will be paged regarding possible need for dialysis. Anesthesia to be paged regarding if they are able to take patient to the OR with uremia. 10/16/18 20:12 Dr. Pfeiffer discussed case with anesthesia who is aware of this patient Repeat BP 178/105, labetolol 20 ordered HR 100 10/16/18 20:28 Repeat BP 142/98, HR 82 10/16/18 21:[address] Kraft who will evaluate patient in the morning. It is possible patient's renal function may improve tonight after stent placement. Otherwise, he may be a candidate for dialysis. 10/16/18 21:27 <Alisa Nunez - Last Filed: 10/16/18 21:28> *DC/Admit/Observation/Transfer <Whitney Pfeiffer - Last Filed: 10/16/18 20:36> <Alisa Nunez - Last Filed: 10/16/18 21:28> Diagnosis at time of Disposition: Penile swelling, Urinary retention - Discharge Dispostion Condition at time of disposition: Stable
[2018-10-16] MEDS ORDERED: SODIUM CHLORIDE 1,000 ML IV SCH (19:45)
[2018-10-16] MEDS ORDERED: LISINOPRIL 20 MG TABLET (FP) PO ONE (20:26)
[2018-10-16] MEDS ORDERED: LABETALOL HCL 5 MG/1 ML (100MG/20 ML VIAL) IVPUSH ONE (20:31)
[2018-10-16] MEDS ORDERED: LABETALOL HCL 5 MG/1 ML (200MG/40ML VIAL) IVPB ONE (20:34)
--- NOTE | 2018-10-16 20:35 | HP ---
CHIEF COMPLAINT: urinary retention PCP: Dr. Nation HISTORY OF PRESENT ILLNESS: 42-year-old male with a significant PMH of HTN and CHF comes to hospital because of no urine output for last 4 days. HE denied any pain, baseline renal disease. Patient has not had this happen before. Some penile swelling mentioned as well. Denied taking any NSAIDS recently. ER course was notable for: (1) abdomen/pelvis CT report (2) (3) Recent Travel: no PAST MEDICAL HISTORY: hypertension , chf PAST SURGICAL HISTORY: Ligament repair in lower extremity Social History: No reported tobacco, alcohol, or drug use. Family History: cousin with renal tumor Allergies amoxicillin Allergy (Verified 10/16/18 13:26) HOME MEDICATIONS: Home Medications Medication Instructions Recorded Labetalol HCl 300 mg PO DAILY 10/16/18 Losartan Potassium [Cozaar] 100 mg PO DAILY 10/16/18 Nifedipine [Adalat cc] 30 mg PO DAILY 10/16/18 REVIEW OF SYSTEMS CONSTITUTIONAL: Absent: fever, chills, diaphoresis, generalized weakness, malaise, loss of appetite, weight change HEENT: Absent: rhinorrhea, nasal congestion, throat pain, throat swelling, difficulty swallowing, mouth swelling, ear pain, eye pain, visual changes CARDIOVASCULAR: Absent: chest pain, syncope, palpitations, irregular heart rate, lightheadedness , peripheral edema RESPIRATORY: Absent: cough, shortness of breath, dyspnea with exertion, orthopnea, wheezing, stridor, hemoptysis GASTROINTESTINAL: Absent: abdominal pain, abdominal distension, nausea, vomiting, diarrhea, constipation, melena, hematochezia GENITOURINARY: Absent: dysuria, frequency, urgency, hesitancy, hematuria, flank pain, genital pain Present -urinary retention MUSCULOSKELETAL: Absent: myalgia, arthralgia, joint swelling, back pain, neck pain SKIN: Absent: rash, itching, pallor HEMATOLOGIC/IMMUNOLOGIC: Absent: easy bleeding, easy bruising, lymphadenopathy, frequent infections ENDOCRINE: Absent: unexplained weight gain, unexplained weight loss, heat intolerance, cold intolerance NEUROLOGIC: Absent: headache, focal weakness or paresthesias, dizziness, unsteady gait, seizure, mental status changes, bladder or bowel incontinence PSYCHIATRIC: Absent: anxiety, depression, suicidal or homicidal ideation, hallucinations. PHYSICAL EXAMINATION Vital Signs - 24 hr 10/16/18 13:31 Temperature 98.2 F Pulse Rate 100 H Respiratory 19 Rate Blood Pressure 189/116 H O2 Sat by Pulse 99 Oximetry (%) GENERAL: Awake, alert, and fully oriented, in no acute distress. HEAD: Normal with no signs of trauma. EYES: Pupils equal, round and reactive to light, extraocular movements intact, sclera anicteric, conjunctiva clear. No lid lag. EARS, NOSE, THROAT: Ears normal, nares patent, oropharynx clear without exudates. Moist mucous membranes. NECK: Normal range of motion, supple without lymphadenopathy, JVD, or masses. LUNGS: Breath sounds equal, clear to auscultation bilaterally. No wheezes, and no crackles. No accessory muscle use. HEART: Regular rate and rhythm, normal S1 and S2 without murmur, rub or gallop. ABDOMEN: distented, BS+, reducible umbilical hernia, ascites MUSCULOSKELETAL: Normal range of motion at all joints. No bony deformities or tenderness. No CVA tenderness. UPPER EXTREMITIES: 2+ pulses, warm, well-perfused. No cyanosis. No clubbing. No peripheral edema. LOWER EXTREMITIES: 2+ pulses, warm, well-perfused. No calf tenderness. mild pedal edema b/l NEUROLOGICAL: Cranial nerves II-XII intact. Normal speech. Normal gait. PSYCHIATRIC: Cooperative. Good eye contact. Appropriate mood and affect. SKIN: Warm, dry, normal turgor, no rashes or lesions noted, normal capillary refill. Solorio catheter in place without any urinary output Laboratory Results - last 24 hr 10/16/18 10/16/18 14:55 14:55 WBC 9.7 RBC 4.29 Hgb 13.0 Hct 37.5 D MCV 87.3 MCH 30.3 MCHC 34.7 RDW 14.6 Plt Count 321 D MPV 8.6 Absolute Neuts (auto) 7.6 Neutrophils % 78.8 D Lymphocytes % 12.9 D Monocytes % 7.2 Eosinophils % 0.6 D Basophils % 0.5 Nucleated RBC % 0 Sodium 130 L Potassium 5.1 Chloride 97 L Carbon Dioxide 17 L Anion Gap 17 H BUN 102 H Creatinine 19.6 H* Creat Clearance w eGFR 2.61 Random Glucose 77 Calcium 8.7 Total Bilirubin 0.5 AST 10 L ALT 15 Alkaline Phosphatase 84 Total Protein 6.6 Albumin 2.8 L Abdomen/pelvic CT reviewed with torin report ASSESSMENT/PLAN: #Acute renal failure likely secondary to urinary tract obstruction, as b/l hydronephrosis on CT of abdomen/pelvis and ascites seen, as well as renal stones visible on imaging. No urine output. Dr. Jarvis of urology was called from ER and case was discussed. -admit to telemetry -urgent urology evaluation -renal evaluation -avoid any nephrotoxins -monitor urine output -ekg -ptt/pt/ type and screen -bed rest -avoid IV fluids #HTN- uncontrolled - likely secondary to fluid overload -c/w home meds- labetolol, nifedipine -avoid losartan due to renal failure #DVT ppx -scds npo for possible surgery Visit type - Emergency Visit Emergency Visit: Yes ED Registration Date: 10/16/18 Care time: The patient presented to the Emergency Department on the above date and was hospitalized for further evaluation of their emergent condition. - New Patient This patient is new to me today: Yes Date on this admission: 10/16/18 - Critical Care Critical Care patient: No
[2018-10-16 20:51] LABS: INR 1.27 (0.83-1.09)
[2018-10-16 20:53] LABS: ACTIVATED PTT 30.9 SECONDS (25.2-36.5)
--- NOTE | 2018-10-16 21:32 | CON.GU ---
Consult - History of Present Illness History of Present Illness: 43 yo male with anuria x 4 days, no flank pain, no prior h/o nephrolithiaisis. Solorio cath inserted but no urine output. CT shows bilateral obstructing stones, on the right distakl ureter and left prox ureter. Creatinin of 19 - Past Medical History Cardio/Vascular: Yes: HTN, Murmur - Alcohol/Substance Use Hx Alcohol Use: No - Smoking History Smoking history: Never smoked Have you smoked in the past 12 months: No Aproximately how many cigarettes per day: 0 - Social History Usual Living Arrangement: Other (with family) History of Recent Travel: No Home Medications - Allergies Allergies/Adverse Reactions: Allergies Allergy/AdvReac Type Severity Reaction Status Date / Time amoxicillin Allergy Verified 10/16/18 13:26 - Home Medications Home Medications: Ambulatory Orders Labetalol HCl 300 mg PO DAILY 10/16/18 Losartan Potassium [Cozaar] 100 mg PO DAILY 10/16/18 Nifedipine [Adalat cc] 30 mg PO DAILY 10/16/18 Physical Exam- Vital Signs: Vital Signs Temperature 97.9 F 10/16/18 21:00 Pulse Rate 82 10/16/18 21:00 Respiratory Rate 20 10/16/18 21:00 Blood Pressure 152/102 H 10/16/18 21:00 O2 Sat by Pulse Oximetry (%) 97 10/16/18 21:00 Renal/: Yes: Anuria Labs: CBC, BMP 10/16/18 14:55 10/16/18 14:55 Imaging - Results Cat Scan: Image Reviewed Problem List - Problems (1) Bilateral ureteral calculi Assessment/Plan: plan for cysto, bilateral ureteral stent placement. R/B/A discussed w pt and mother. I feel nephrostomy tube placement by IR will be difficult since hydro only mild (likely since pt has had poor po intake for several days) and therefore bilateral ureteral stent placement would be the most appropriate initial intervention Code(s): N20.1 - CALCULUS OF URETER
[2018-10-16] MEDS ORDERED: MIDAZOLAM HCL 2 MG/2 ML SINGLE DOSE VIAL ONE (21:45)
[2018-10-16] MEDS ORDERED: ceFAZolin SODIUM 1 GM VIAL ONE (21:46)
[2018-10-16] MEDS ORDERED: SODIUM CHLORIDE 0.9% P/F 10 ML VIAL IJ ONE (21:47)
[2018-10-16] MEDS ORDERED: ceFAZolin SODIUM 1 GM VIAL IVPB ONE (21:48)
[2018-10-16] MEDS ORDERED: IOHEXOL 300 MG/ML INFUS..BTL IV ONE (22:06)
--- NOTE | 2018-10-16 22:33 | OP ---
Operative Note - Note: Operative Date: 10/16/18 Pre-Operative Diagnosis: bilateral ureteral stone with hydro Operation: cysto/retrograde/bilat ureteral stent placement Post-Operative Diagnosis: Same as Pre-op Surgeon: Arnoldo Lucero Anesthesiologist/NETWORK DESIGN ARCHITECT: Geronimo Barton Anesthesia: Spinal Estimated Blood Loss (mls): 0
[2018-10-17] MEDS ORDERED: SODIUM CHLORIDE 1,000 ML IV SCH (01:00)
[2018-10-17 06:35] VITALS: BMI 27.4
[2018-10-17 07:20] LABS: BASO % 0.5 % (0-2.0); EOS % 1.1 % (0-4.5); HEMOGLOBIN 12.4 GM/dL (11.7-16.9); LYMPH % 16.7 % (8-40); MCH 30.1 pg (25.7-33.7); MCHC 34.4 g/dl (32.0-35.9); MEAN CELL VOLUME 87.5 fl (80-96); MEAN PLT VOLUME 8.6 fl (7.5-11.1); MONO % 7.8 % (3.8-10.2); NEUT % 73.9 % (42.8-82.8); PLATELET COUNT 295 K/MM3 (134-434); RBC 4.12 M/mm3 (4.00-5.60); RDW 14.9 % (11.9-15.9); WHITE BLOOD COUNT 7.8 K/mm3 (4.0-10.0)
[2018-10-17 07:34] LABS: ANION GAP 14 MMOL/L (8-16); BLOOD UREA NITROGEN 90 mg/dL (7-18); CHLORIDE 104 mmol/L (98-107); CO2 18 mmol/L (21-32); GLUCOSE,RANDOM 64 mg/dL (74-106); POTASSIUM 4.7 mmol/L (3.5-5.1); SODIUM 136 mmol/L (136-145)
[2018-10-17 08:20] LABS: CREATININE 14.8 mg/dL (0.55-1.3)
--- NOTE | 2018-10-17 08:55 | CON.NEP ---
Consult Consult Specialty:: nephrology - History of Present Illness Chief Complaint: anuria History of Present Illness: 43 year old [place] man presents with anuria for four days associated with nausea and anorexia. He was found to have bilateral obstructing stones and had stents placed last night by urology. He feels better today and is making urine. His nausea is better and has no vomiting. He reports having a similar episode last year also associated with penile swelling as it is today. Has history of hypertension but no history of known ckd. No family history of renal failure. - History Source History Provided By: Patient, Medical Record Limitations to Obtaining History: No Limitations - Past Medical History Cardio/Vascular: Yes: HTN, Murmur - Alcohol/Substance Use Hx Alcohol Use: No - Smoking History Smoking history: Never smoked Have you smoked in the past 12 months: No Aproximately how many cigarettes per day: 0 - Social History Usual Living Arrangement: Other (with family) History of Recent Travel: No Home Medications - Allergies Allergies/Adverse Reactions: Allergies Allergy/AdvReac Type Severity Reaction Status Date / Time amoxicillin Allergy Verified 10/16/18 13:26 - Home Medications Home Medications: Ambulatory Orders Labetalol HCl 300 mg PO DAILY 10/16/18 Losartan Potassium [Cozaar] 100 mg PO DAILY 10/16/18 Nifedipine [Adalat cc] 30 mg PO DAILY 10/16/18 Review of Systems - Review of Systems Constitutional: reports: Weakness Eyes: reports: No Symptoms HENT: reports: No Symptoms Neck: reports: No Symptoms Cardiovascular: reports: No Symptoms Respiratory: reports: No Symptoms Gastrointestinal: reports: Nausea Genitourinary: reports: Other (anuria) Breasts: reports: No Symptoms Reported Musculoskeletal: reports: No Symptoms Integumentary: reports: No Symptoms Neurological: reports: No Symptoms Endocrine: reports: No Symptoms Nephrology Consult - Height Height: 5 ft 4 in - Weight Weight: 160 lb - BMI Body Mass Index (BMI): 27.4 - Lab Results CBC,BMP: CBC, BMP 10/17/18 05:30 10/17/18 05:30 Anion Gap: Anion Gap Anion Gap 14 MMOL/L (8-16) 10/17/18 05:30 - Physical Examination Vital Signs: Vital Signs Temperature 98.5 F 10/17/18 06:00 Pulse Rate 87 10/17/18 06:00 Respiratory Rate 16 10/17/18 08:24 Blood Pressure 156/83 10/17/18 06:00 O2 Sat by Pulse Oximetry (%) 98 10/17/18 08:24 Constitutional: Yes: Well Nourished, No Distress Eyes: Yes: Conjunctiva Clear HENT: Yes: Atraumatic, Normocephalic Neck: Yes: Supple, Trachea Midline Cardiovascular: Yes: Regular Rate and Rhythm, S2 (split s2) Respiratory: Yes: Regular, CTA Bilaterally Gastrointestinal: Yes: Normal Bowel Sounds Musculoskeletal: Yes: WNL Extremities: Yes: WNL Edema: No Integumentary: Yes: WNL Wound/Incision: Yes: Clean/Dry, Well Approximated Neurological: Yes: Alert, Oriented Psychiatric: Yes: Alert, Oriented Assessment/Plan IMPRESSION VILMA on CKD obstructive uropathy h/o renal artery stenosis by doppler- questionable split s2 cardiomegaly PLAN continue fluids and bailey drainage at this point does not need to be dialyzed, he is improving urology note reviewed and appreciated cardiology josie RANDALL
[2018-10-17 09:14] LABS: URINE APPEARANCE CLEAR; URINE BILIRUBIN NEGATIVE (<2.0 mg/dL); URINE GLUCOSE (UA) NEGATIVE (NEGATIVE); URINE KETONE NEGATIVE (NEGATIVE); URINE LEUK ESTERASE 1+ (NEGATIVE); URINE NITRITE NEGATIVE (NEGATIVE); URINE PROTEIN 1+ (NEGATIVE); URINE UROBILINOGEN NEGATIVE mg/dL (0.2-1.0)
[2018-10-17 09:28] LABS: URINE COLOR RED
--- NOTE | 2018-10-17 09:36 | OP ---
DATE OF OPERATION: 10/16/2018 PREOPERATIVE DIAGNOSES: Bilateral ureteral obstruction from bilateral stones. POSTOPERATIVE DIAGNOSES: Bilateral ureteral obstruction from bilateral stones. PROCEDURE: Cystoscopy, bilateral retrograde pyelogram, bilateral ureteral stent placement. SURGEON: Arnoldo Lucero MD INDICATION: The patient is a 43-year-old male with anuresis times several days. CT scan shows bilateral ureteral obstruction from a stone. He is taken to the OR emergently for cystoscopy, bilateral ureteral stent placement. After informed consent was obtained, patient taken to the OR, placed supine on the operating table. Cardiac monitoring was administered, spinal anesthetic was then given. He was prepped and draped in dorsal lithotomy position. The 22 sheathed cystoscope was inserted into the urethra and then into the bladder without difficulty. There were no tumors or stones noted in the bladder. Attention was turned to the right ureteral orifice, which was intubated with a ureteral catheter. Contrast injected for retrograde pyelogram. There is hydronephrosis down to the level of the distal ureter. Guidewire was advanced into the right renal pelvis. Over the guidewire, a 7-[place], 24-cm stent was advanced in a monorail fashion. Fluoroscopy confirmed this to be in good position. With the right side now drained, attention was turned to the left side. In a similar fashion, a guidewire was advanced and the ureteral catheter was advanced and contrast injected for retrograde pyelogram. There is hydroureteronephrosis noted to the level of the proximal ureter. A guidewire was advanced beyond the stone, into the left renal pelvis. Over the guidewire, a 7-[place], 24-cm double-pigtail stent was advanced in a monorail fashion. Fluoroscopy confirmed this to be in good position. With both stents now in good position, the cystoscope was then removed and a Solorio placed to straight drainage. [place]-tinged urine was achieved. The patient was awoken from anesthesia and transferred to the recovery room in stable condition. There were no complications. ESTIMATED BLOOD LOSS: Minimal. Janki [id number]
--- NOTE | 2018-10-17 09:37 | PN ---
Progress Note (short form) - Note Progress Note: Events noted POD #1- B/L stent placement , nephrolithiasis, hydronephrosis no complaints feels well no pain has a bailey , draining pink- red urine Vital Signs - 24 hr 10/16/18 10/16/18 10/16/18 13:31 20:45 21:00 Temperature 98.2 F 97.9 F 97.9 F Pulse Rate 100 H Pulse Rate [ 97 H 82 Left Apical] Respiratory 19 20 20 Rate Blood Pressure 189/116 H Blood Pressure 180/112 H 152/102 H [Left Arm] O2 Sat by Pulse 99 97 97 Oximetry (%) 10/16/18 10/16/18 10/16/18 22:33 22:50 23:05 Temperature 97.8 F Pulse Rate 84 82 80 Pulse Rate [ Left Apical] Respiratory 18 18 20 Rate Blood Pressure 134/93 126/88 133/80 Blood Pressure [Left Arm] O2 Sat by Pulse 97 100 100 Oximetry (%) 10/16/18 10/16/18 10/16/18 23:20 23:35 23:50 Temperature Pulse Rate 78 75 77 Pulse Rate [ Left Apical] Respiratory 20 18 18 Rate Blood Pressure 135/81 134/75 137/83 Blood Pressure [Left Arm] O2 Sat by Pulse 100 100 98 Oximetry (%) 10/17/18 10/17/18 10/17/18 00:05 00:20 01:30 Temperature 98 F 98 F Pulse Rate 76 78 86 Pulse Rate [ Left Apical] Respiratory 18 18 20 Rate Blood Pressure 134/76 128/73 159/93 Blood Pressure [Left Arm] O2 Sat by Pulse 98 98 98 Oximetry (%) 10/17/18 10/17/18 06:00 08:24 Temperature 98.5 F Pulse Rate 87 Pulse Rate [ Left Apical] Respiratory 20 16 Rate Blood Pressure 156/83 Blood Pressure [Left Arm] O2 Sat by Pulse 98 Oximetry (%) Current Medications Generic Name Dose Route Start Last Admin Trade Name Freq PRN Reason Stop Dose Admin Sodium Chloride 1,000 mls @ 42 mls/hr 10/17/18 01:00 Normal Saline - IV ASDIR JENNIFER Labetalol HCl 300 mg 10/17/18 10:00 Normodyne - PO DAILY JENNIFER Nifedipine 30 mg 10/17/18 10:00 Procardia Xl - PO DAILY JENNIFER Laboratory Results - last 24 hr 10/16/18 10/16/18 10/16/18 14:55 14:55 20:12 WBC 9.7 RBC 4.29 Hgb 13.0 Hct 37.5 D MCV 87.3 MCH 30.3 MCHC 34.7 RDW 14.6 Plt Count 321 D MPV 8.6 Absolute Neuts (auto) 7.6 Neutrophils % 78.8 D Lymphocytes % 12.9 D Monocytes % 7.2 Eosinophils % 0.6 D Basophils % 0.5 Nucleated RBC % 0 PT with INR INR PTT (Actin FS) Sodium 130 L Potassium 5.1 Chloride 97 L Carbon Dioxide 17 L Anion Gap 17 H BUN 102 H Creatinine 19.6 H* Creat Clearance w eGFR 2.61 POC Glucometer Random Glucose 77 Calcium 8.7 Total Bilirubin 0.5 AST 10 L ALT 15 Alkaline Phosphatase 84 Creatine Kinase 47 Total Protein 6.6 Albumin 2.8 L Urine Color Urine Appearance Urine pH Ur Specific [place] Urine Protein Urine Glucose (UA) Urine Ketones Urine Blood Urine Nitrite Urine Bilirubin Urine Urobilinogen Ur Leukocyte Esterase Blood Type Antibody Screen 10/16/18 10/16/18 10/17/18 20:12 20:12 03:45 WBC RBC Hgb Hct MCV MCH MCHC RDW Plt Count MPV Absolute Neuts (auto) Neutrophils % Lymphocytes % Monocytes % Eosinophils % Basophils % Nucleated RBC % PT with INR 15.00 H INR 1.27 H PTT (Actin FS) 30.9 Sodium Potassium Chloride Carbon Dioxide Anion Gap BUN Creatinine Creat Clearance w eGFR POC Glucometer Random Glucose Calcium Total Bilirubin AST ALT Alkaline Phosphatase Creatine Kinase Total Protein Albumin Urine Color Red Urine Appearance Clear Urine pH 6.0 Ur Specific [place] 1.006 L Urine Protein 1+ H Urine Glucose (UA) Negative Urine Ketones Negative Urine Blood 3+ H Urine Nitrite Negative Urine Bilirubin Negative Urine Urobilinogen Negative Ur Leukocyte Esterase 1+ H Blood Type O POSITIVE Antibody Screen Negative 10/17/18 10/17/18 10/17/18 05:30 05:30 05:30 WBC 7.8 RBC 4.12 Hgb 12.4 Hct 36.0 MCV 87.5 MCH 30.1 MCHC 34.4 RDW 14.9 Plt Count 295 MPV 8.6 Absolute Neuts (auto) 5.8 Neutrophils % 73.9 Lymphocytes % 16.7 D Monocytes % 7.8 Eosinophils % 1.1 D Basophils % 0.5 Nucleated RBC % 0 PT with INR INR PTT (Actin FS) Sodium 136 Potassium 4.7 Chloride 104 Carbon Dioxide 18 L Anion Gap 14 BUN 90 H Creatinine 14.8 H* Creat Clearance w eGFR 3.61 POC Glucometer Random Glucose 64 L Calcium 9.0 Total Bilirubin AST ALT Alkaline Phosphatase Creatine Kinase Total Protein Albumin Urine Color Urine Appearance Urine pH Ur Specific [place] Urine Protein Urine Glucose (UA) Urine Ketones Urine Blood Urine Nitrite Urine Bilirubin Urine Urobilinogen Ur Leukocyte Esterase Blood Type O POSITIVE Antibody Screen Negative 10/17/18 10/17/18 06:05 07:38 WBC RBC Hgb Hct MCV MCH MCHC RDW Plt Count MPV Absolute Neuts (auto) Neutrophils % Lymphocytes % Monocytes % Eosinophils % Basophils % Nucleated RBC % PT with INR INR PTT (Actin FS) Sodium Potassium Chloride Carbon Dioxide Anion Gap BUN Creatinine Creat Clearance w eGFR POC Glucometer 63 Random Glucose Calcium Total Bilirubin AST ALT Alkaline Phosphatase Creatine Kinase Total Protein Albumin Urine Color Urine Appearance Urine pH Ur Specific [place] Urine Protein Urine Glucose (UA) Urine Ketones Urine Blood Urine Nitrite Urine Bilirubin Urine Urobilinogen Ur Leukocyte Esterase Blood Type O POSITIVE Antibody Screen S1 S2 RRR,split S2 Lungs clear Abd- soft, NT no CVA tenderness PLAN has low EF on prior Echo iv fluids- gentle renal function improving repeat Echo output good no signs of volume overload Cardiology eval Problem List - Problems (1) CHF (congestive heart failure) Code(s): I50.9 - HEART FAILURE, UNSPECIFIED (2) Obstructive uropathy Code(s): N13.9 - OBSTRUCTIVE AND REFLUX UROPATHY, UNSPECIFIED (3) Bilateral ureteral calculi Code(s): N20.1 - CALCULUS OF URETER (4) Heart failure Code(s): I50.9 - HEART FAILURE, UNSPECIFIED Qualifiers: Heart failure type: unspecified heart failure type Heart failure chronicity : unspecified heart failure chronicity Qualified Code(s): I50.9 - Heart failure, unspecified (5) Systolic and diastolic CHF, chronic Code(s): I50.42 - CHRONIC COMBINED SYSTOLIC AND DIASTOLIC HRT FAIL
[2018-10-17] MEDS: NIFEdipine E.R. 30 MG TABLET (FP) PO SCH (10:34)
[2018-10-17] MEDS: LABETALOL HCL 100 MG TABLET (FP) PO SCH (10:34)
--- NOTE | 2018-10-17 11:50 | EKG ---
Test Reason : Blood Pressure : / mmHG Vent. Rate : 099 BPM Atrial Rate : 099 BPM P-R Int : 150 ms QRS Dur : 146 ms QT Int : 390 ms P-R-T Axes : 042 048 009 degrees QTc Int : 500 ms NORMAL SINUS RHYTHM RIGHT BUNDLE BRANCH BLOCK ABNORMAL ECG WHEN COMPARED WITH ECG OF 04-MAR-2017 11:07, MINIMAL CRITERIA FOR SEPTAL INFARCT ARE NO LONGER PRESENT Confirmed by AKASH FOFANA, CATALINA ([id number]) on 10/17/2018 11:50:17 AM Referred By: Confirmed By:CATALINA BUSTOS MD
--- NOTE | 2018-10-17 14:20 | CON.CARD ---
Consult - History of Present Illness History of Present Illness: The patient is a 42-year-old male with a significant PMH of HTN and CHF (EF 2017 40%, not on diuretics) who presents to the ED with urinary retention for the past 4 days. The patient also noticed that his penis was swollen and few drops of blood on it yesterday but denies any penile pain. Patient is also complaining of abdominal bloating and has not been eating or drinking as a result. Patient had similar symptoms approximately 1 year ago, and reports he was given a "pill to help him urinate." Patient called Dr. Nation yesterday, but did not have any appointments available prompting him to come to the ER for evaluation. Patient did not take his HTN meds today. The patient denies any fever, chills, nausea, vomiting, diarrhea, or abdominal pain. Denies any chest pain or shortness of breath. Allergies: amoxicillin Social History: No reported tobacco, alcohol, or drug use. Surgical History: Ligament repair PCP: Dr. Nation - Past Medical History Cardio/Vascular: Yes: HTN, Murmur - Alcohol/Substance Use Hx Alcohol Use: No - Smoking History Smoking history: Never smoked Have you smoked in the past 12 months: No Aproximately how many cigarettes per day: 0 - Social History Usual Living Arrangement: Other (with family) History of Recent Travel: No Home Medications - Allergies Allergies/Adverse Reactions: Allergies Allergy/AdvReac Type Severity Reaction Status Date / Time amoxicillin Allergy Verified 10/16/18 13:26 - Home Medications Home Medications: Ambulatory Orders Labetalol HCl 300 mg PO DAILY 10/16/18 Losartan Potassium [Cozaar] 100 mg PO DAILY 10/16/18 Nifedipine [Adalat cc] 30 mg PO DAILY 10/16/18 Vital Signs: Vital Signs Temperature 97.9 F 10/17/18 13:15 Pulse Rate 83 10/17/18 13:15 Respiratory Rate 16 10/17/18 13:15 Blood Pressure 133/71 10/17/18 13:15 O2 Sat by Pulse Oximetry (%) 98 10/17/18 08:24 - Other Data Labs, Other Data: CBC, BMP 10/17/18 05:30 10/17/18 05:30 INR, PTT INR 1.27 (0.83-1.09) H 10/16/18 20:12
--- NOTE | 2018-10-17 17:58 | PN ---
Progress Note (short form) - Note Progress Note: Anesthesia post op note, POD#1 S/P Cysto and stent placement ubder spinal anesthesia. Pat seen and examined. VSS. No complaints. No apparent anesthesia related complications. continued care as per primary team.
[2018-10-18 07:58] LABS: ANION GAP 11 MMOL/L (8-16); BLOOD UREA NITROGEN 61 mg/dL (7-18); CALCIUM 8.2 mg/dL (8.5-10.1); CHLORIDE 107 mmol/L (98-107); CO2 23 mmol/L (21-32); CREATININE 4.7 mg/dL (0.55-1.3); GLUCOSE,RANDOM 76 mg/dL (74-106); POTASSIUM 3.6 mmol/L (3.5-5.1); SODIUM 141 mmol/L (136-145)
--- NOTE | 2018-10-18 08:59 | CON.CARD ---
Consult Consult Specialty:: Cardiology Referred by:: Dr. Huber Reason for Consultation:: Hypertension - History of Present Illness Chief Complaint: Fatigue History of Present Illness: Poor Historian, history is primarily obtained from review of chart. "The patient is a 42-year-old male with a significant PMH of HTN and CHF (EF 2017 40%, not on diuretics) who presents to the ED with urinary retention for the past 4 days. The patient also noticed that his penis was swollen and few drops of blood on it yesterday but denies any penile pain. Patient is also complaining of abdominal bloating and has not been eating or drinking as a result. Patient had similar symptoms approximately 1 year ago, and reports he was given a "pill to help him urinate." Patient called Dr. Nation yesterday, but did not have any appointments available prompting him to come to the ER for evaluation. Patient did not take his HTN meds today. The patient denies any fever, chills, nausea, vomiting, diarrhea, or abdominal pain. Denies any chest pain or shortness of breath. " He was found to have bilateral obstructing stones and had stents placed by urology. He is now feeling better, with good urine output and improving creatinine. His blood pressure was also initially extremely elevated, but has now also improved. - History Source History Provided By: Patient, Medical Record Limitations to Obtaining History: Clinical Condition - Past Medical History Cardio/Vascular: Yes: HTN, Murmur, Other (Cardiomyopathy) Renal/: Yes: Renal Failure, Renal Calculi - Alcohol/Substance Use Hx Alcohol Use: No - Smoking History Smoking history: Never smoked Have you smoked in the past 12 months: No Aproximately how many cigarettes per day: 0 - Social History Usual Living Arrangement: Other (with family) History of Recent Travel: No Home Medications - Allergies Allergies/Adverse Reactions: Allergies Allergy/AdvReac Type Severity Reaction Status Date / Time amoxicillin Allergy Verified 10/16/18 13:26 - Home Medications Home Medications: Ambulatory Orders Labetalol HCl 300 mg PO DAILY 10/16/18 Losartan Potassium [Cozaar] 100 mg PO DAILY 10/16/18 Nifedipine [Adalat cc] 30 mg PO DAILY 10/16/18 Family Disease History - Family Disease History Family History: Unremarkable (non-contributory to this presentation) Review of Systems Findings/Remarks: see HPI - Review of Systems Constitutional: reports: No Symptoms Eyes: reports: No Symptoms HENT: reports: No Symptoms Neck: reports: No Symptoms Cardiovascular: reports: No Symptoms Respiratory: reports: No Symptoms Gastrointestinal: reports: No Symptoms Genitourinary: reports: Other (decreased urine output and penile edema.) Neurological: reports: No Symptoms Endocrine: reports: No Symptoms Hematology/Lymphatic: reports: No Symptoms Psychiatric: reports: No Symptoms - Risk Factors Known Risk Factors: Yes: Hypertension Vital Signs: Vital Signs Temperature 98.1 F 10/18/18 05:12 Pulse Rate 89 10/18/18 05:12 Respiratory Rate 17 10/18/18 05:12 Blood Pressure 146/87 10/18/18 05:12 O2 Sat by Pulse Oximetry (%) 98 10/17/18 21:00 Constitutional: Yes: No Distress Eyes: Yes: Conjunctiva Clear, EOM Intact HENT: Yes: Atraumatic, Normocephalic Neck: Yes: Supple, Trachea Midline Respiratory: Yes: CTA Bilaterally Gastrointestinal: Yes: Soft Renal/: Yes: Other (Solorio in place) Cardiovascular: Yes: Regular Rate and Rhythm JVD: No Carotid Bruit: No Heart Sounds: Yes: S4 Edema: No Peripheral Pulses WNL: Yes Neurological: Yes: Alert, Oriented ...Motor Strength: WNL - Other Data Labs, Other Data: CBC, BMP 10/17/18 05:30 10/18/18 05:50 INR, PTT INR 1.27 (0.83-1.09) H 10/16/18 20:12 Laboratory Tests 10/16/18 10/17/18 10/17/18 14:55 05:30 05:30 WBC 7.8 Hgb 12.4 Plt Count 295 Sodium Potassium BUN 102 H 90 H Creatinine 19.6 H* 14.8 H* 10/18/18 05:50 WBC Hgb Plt Count Sodium 141 Potassium 3.6 BUN 61 H Creatinine 4.7 H NSR 99bpm, RBBB. Echo: Pending Imaging - Results Chest X-ray: Image Reviewed EKG: Image Reviewed Problem List - Problems (1) Bilateral ureteral calculi Code(s): N20.1 - CALCULUS OF URETER (2) Bilateral ureteral obstruction Code(s): N13.5 - CROSSING VESSEL AND STRICTURE OF URETER W/O HYDRONEPHROSIS (3) Obstructive uropathy Code(s): N13.9 - OBSTRUCTIVE AND REFLUX UROPATHY, UNSPECIFIED (4) Penile swelling Code(s): N48.89 - OTHER SPECIFIED DISORDERS OF PENIS (5) Urinary retention Code(s): R33.9 - RETENTION OF URINE, UNSPECIFIED (6) CKD (chronic kidney disease) Code(s): N18.9 - CHRONIC KIDNEY DISEASE, UNSPECIFIED (7) Heart failure Code(s): I50.9 - HEART FAILURE, UNSPECIFIED Qualifiers: Heart failure type: unspecified heart failure type Heart failure chronicity : unspecified heart failure chronicity (8) Hypertensive urgency Code(s): I16.0 - HYPERTENSIVE URGENCY (9) Pulmonary hypertension Code(s): I27.20 - PULMONARY HYPERTENSION, UNSPECIFIED (10) Mitral regurgitation Code(s): I34.0 - NONRHEUMATIC MITRAL (VALVE) INSUFFICIENCY Assessment/Plan IMP: Obstructive uropathy Acute renal failure, improving. Presumed non-ischemic cardiomyopathy with severely reduced LVEF (2017) secondary chronic HTN Hypertensive heart disease Pulmonary HTN Mitral regurgitation REC: 1. Improving renal fxn, and renal f/u. 2. Hypertension as improved, continue current Rx. Holding WHITNEY/ARB in setting ARF. Would benefit from transition to Carvedilol or Toprol XL in the [place] [facility]. 3. Repeat echo to re-evaluate LVEF, MR and degree of PHTN which is likely secondary to left sided failure, valvular heart disease and elevated EDP. 4. Will review office records to see if patient ever had a complete ischemic evaluation (slightly submax exercise MIBI here in 2017 showing no ischemia with LVEF 40%). Thank you.
[2018-10-18] MEDS: LABETALOL HCL 100 MG TABLET (FP) PO SCH (10:58)
[2018-10-18] MEDS: NIFEdipine E.R. 30 MG TABLET (FP) PO SCH (10:58)
[2018-10-18] MEDS ORDERED: SODIUM CHLORIDE 1,000 ML IV SCH (12:34)
--- NOTE | 2018-10-18 12:34 | PN ---
Progress Note, Physician History of Present Illness: Pt seen and examined at bedside. He is awake and alert. He is making urine. He denies shortness of breath. - Current Medication List Current Medications: Active Medications Sodium Chloride (Normal Saline -) 1,000 mls @ 42 mls/hr IV ASDIR [facility]ENN[facility] Last Admin: 10/17/18 10:34 Dose: 42 mls/hr Labetalol HCl (Normodyne -) 300 mg PO DAILY [facility]ENN[facility] Last Admin: 10/18/18 10:58 Dose: 300 mg Nifedipine (Procardia Xl -) 30 mg PO DAILY [facility] Last Admin: 10/18/18 10:58 Dose: 30 mg - Objective Vital Signs: Vital Signs Temperature 97.6 F 10/18/18 10:57 Pulse Rate 88 10/18/18 10:57 Respiratory Rate 20 10/18/18 10:57 Blood Pressure 134/84 10/18/18 10:57 O2 Sat by Pulse Oximetry (%) 98 10/17/18 21:00 Constitutional: Yes: Calm Eyes: Yes: Conjunctiva Clear HENT: Yes: Atraumatic Neck: Yes: Supple Cardiovascular: Yes: S1, S2 Respiratory: Yes: CTA Bilaterally Gastrointestinal: Yes: Soft Genitourinary: Yes: Solorio Present Musculoskeletal: Yes: WNL Edema: No Neurological: Yes: Oriented Psychiatric: Yes: Oriented Labs: CBC, BMP 10/17/18 05:30 10/18/18 05:50 INR, PTT INR 1.27 (0.83-1.09) H 10/16/18 20:12 Assessment/Plan Current Medications Generic Name Dose Route Start Last Admin Trade Name Ashutosh PRN Reason Stop Dose Admin Sodium Chloride 1,000 mls @ 42 mls/hr 10/17/18 01:00 10/17/18 10:34 Normal Saline - IV 42 mls/hr ASDIR JENNIFER Administration Labetalol HCl 300 mg 10/17/18 10:00 10/18/18 10:58 Normodyne - PO 300 mg DAILY JENNIFER Administration Nifedipine 30 mg 10/17/18 10:00 10/18/18 10:58 Procardia Xl - PO 30 mg DAILY JENNIFER Administration Impression 1. VILMA 2. obstructive uropathy 3. HTN 4. s/p bilateral ureteral stents 5. nephrolithiasis Plan - renal function is improving - cont to monitor - cont with flouids - monitor for post obstructive diuresis - monitor BP
--- NOTE | 2018-10-18 13:47 | PN ---
Progress Note (short form) - Note Progress Note: pt seen/ examined chart reviewed pod # 2 comfortable denies pain passing urine bun/cr coming down. Vital Signs Temp 97.6 F 10/18/18 10:57 Pulse 88 10/18/18 10:57 Resp 20 10/18/18 10:57 BP 134/84 10/18/18 10:57 Pulse Ox 98 10/18/18 09:00 Intake & Output 10/17/18 10/18/18 10/18/18 23:59 11:59 23:59 Intake Total 744 200 Output Total 7300 3400 Balance -6556 -3200 Weight 160 lb 12.8 oz Intake: IV 504 Normal Saline - 1,000 ml 504 @ 42 mls/hr IV ASDIR [facility] Rx#:[id number] Oral 200 Oral Supplement 240 Output: Urine 7300 3400 Solorio 7300 3400 Other: Voiding Method Indwelling Catheter Indwelling Catheter Bowel Movement No Weight Measurement Method Standing Scale Active Medications Sodium Chloride (Normal Saline -) 1,000 mls @ 65 mls/hr IV ASDIR [facility] Labetalol HCl (Normodyne -) 300 mg PO DAILY [facility] Last Admin: 10/18/18 10:58 Dose: 300 mg Nifedipine (Procardia Xl -) 30 mg PO DAILY [facility] Last Admin: 10/18/18 10:58 Dose: 30 mg CBC, BMP 10/17/18 05:30 10/18/18 05:50 Physical awake/ comfortable S1 S2 RRR, Lungs clear Abd- soft, NT no CVA tenderness PLAN Better has low EF on prior Echo iv fluids- gentle renal function improving repeat Echo pending output good no signs of volume overload Cardiology eval appreciated will follow monitor labs
--- NOTE | 2018-10-18 14:36 | ECHO ---
Name: GEOVANNY MAHONEY Exam:Adult Echocardiogram Study Date: 10/18/2018 09:45 AM Age: 43 yrs Reason For Study: CHECK EF Height: 64 in Weight: 160 lb BSA: 1.8 m2 MMode/2D Measurements & Calculations IVSd: 0.95 cm Ao root diam: 2.6 cm LVIDd: 5.7 cm LA dimension: 3.4 cm LVIDs: 3.8 cm LVPWd: 0.82 cm EDV(Teich): 157.0 ml TAPSE: 1.8 cm ESV(Teich): 63.2 ml Doppler Measurements & Calculations MV E max osmin: 77.5 cm/sec MR max osmin: 364.1 cm/sec MV A max osmin: 59.6 cm/sec MR max P.7 mmHg MV E/A: 1.3 MV dec time: 0.19 sec TR max osmin: 222.3 cm/sec Med Peak E' Osmin: 4.6 cm/sec TR max P.0 mmHg Med E/e': 16.7 Lat Peak E' Osmin: 7.9 cm/sec Lat E/e': 9.8 Procedure A complete two-dimensional transthoracic echocardiogram was performed (2D, M-mode, Doppler and color flow Doppler). Technically limited study. Left Ventricle The left ventricle is normal in size. Left ventricular systolic function is mildly reduced. Ejection Fraction = 45-50%. There is mild global hypokinesis of the left ventricle. Right Ventricle The right ventricle is normal size. The right ventricular systolic function is normal. Atria The left atrial size is normal. Right atrial size is normal. Mitral Valve There is mild mitral annular calcification. There is mild mitral regurgitation. Tricuspid Valve The tricuspid valve is normal in structure and function. There is mild tricuspid regurgitation. Aortic Valve There is mild aortic sclerosis.;. No aortic regurgitation is present. Pulmonic Valve The pulmonic valve is not well visualized. Great Vessels The aortic root is normal size. Pericardium/Pleura There is no pericardial effusion. Interpretation Summary Technically limited study The left ventricle is normal in size. Left ventricular systolic function is mildly reduced. There is mild global hypokinesis of the left ventricle. Ejection Fraction = 45-50%. The right ventricular systolic function is normal. The left atrial size is normal. Right atrial size is normal. There is mild mitral annular calcification. There is mild mitral regurgitation. There is mild tricuspid regurgitation. There is mild aortic sclerosis. There is no pericardial effusion. Previous study is not available for comparison Darci Rubio MD 10/18/2018 02:36 PM
--- NOTE | 2018-10-18 19:56 | PN ---
Progress Note (short form) - Note Progress Note: feels better urine clear abd soft creat down to 4.7 plan to d/c bailey tomorrow Problem List - Problems (1) Bilateral ureteral calculi Code(s): N20.1 - CALCULUS OF URETER
[2018-10-19] MEDS ORDERED: ACETAMINOPHEN 325 MG TABLET (FP) PO ONE (02:02)
[2018-10-19 08:37] LABS: ALBUMIN 2.9 g/dl (3.4-5.0); ALK PHOS 84 U/L (45-117); ANION GAP 8 MMOL/L (8-16); BILIRUBIN,TOTAL 0.6 mg/dL (0.2-1); BLOOD UREA NITROGEN 29 mg/dL (7-18); CALCIUM 8.3 mg/dL (8.5-10.1); CHLORIDE 105 mmol/L (98-107); CO2 28 mmol/L (21-32); CREATININE 1.7 mg/dL (0.55-1.3); GLUCOSE,RANDOM 83 mg/dL (74-106); POTASSIUM 3.4 mmol/L (3.5-5.1); SGOT/AST 23 U/L (15-37); SGPT/ALT 23 U/L (13-61); SODIUM 141 mmol/L (136-145); TOT PROT 6.8 g/dl (6.4-8.2)
[2018-10-19] MEDS ORDERED: POTASSIUM CHLORIDE TABS 20 MEQ TABLET.ER (FP) PO ONE (08:39)
--- NOTE | 2018-10-19 08:46 | PN ---
Progress Note (short form) - Note Progress Note: feels better urine clear abd soft creat down to 1.7 d/c bailey for voiding trial will need lithotripsy electively for bilateral ureteral stones Problem List - Problems (1) Bilateral ureteral calculi Code(s): N20.1 - CALCULUS OF URETER
--- NOTE | 2018-10-19 08:52 | PN ---
Progress Note, Physician Chief Complaint: Seen and examined, feeling better Echo: mild global HK, EF 45=50% History of Present Illness: TELE: NSR - Current Medication List Current Medications: Active Medications Sodium Chloride (Normal Saline -) 1,000 mls @ 65 mls/hr IV ASDIR [facility] Last Admin: 10/19/18 08:14 Dose: 65 mls/hr Labetalol HCl (Normodyne -) 300 mg PO DAILY [facility] Last Admin: 10/18/18 10:58 Dose: 300 mg Nifedipine (Procardia Xl -) 30 mg PO DAILY [facility] Last Admin: 10/18/18 10:58 Dose: 30 mg - Objective Vital Signs: Vital Signs Temperature 98.1 F 10/19/18 05:55 Pulse Rate 90 10/19/18 05:55 Respiratory Rate 20 10/19/18 05:55 Blood Pressure 148/91 10/19/18 05:55 O2 Sat by Pulse Oximetry (%) 97 10/18/18 21:00 Constitutional: Yes: No Distress, Calm Eyes: Yes: Conjunctiva Clear Cardiovascular: Yes: Regular Rate and Rhythm, S4 Respiratory: Yes: CTA Bilaterally Gastrointestinal: Yes: Soft Edema: No Neurological: Yes: Alert, Oriented ...Motor Strength: WNL Labs: CBC, BMP 10/17/18 05:30 10/19/18 07:10 INR, PTT INR 1.27 (0.83-1.09) H 10/16/18 20:12 Laboratory Tests 10/17/18 10/18/18 10/19/18 05:30 05:50 07:10 RBC 4.12 Hgb 12.4 Hct 36.0 Plt Count 295 Potassium 3.4 L BUN 61 H 29 H Creatinine 4.7 H 1.7 H Calcium 8.3 L Total Bilirubin 0.6 AST 23 ALT 23 Alkaline Phosphatase 84 - ....Imaging EKG: Image Reviewed Problem List - Problems (1) Bilateral ureteral calculi Code(s): N20.1 - CALCULUS OF URETER (2) Bilateral ureteral obstruction Code(s): N13.5 - CROSSING VESSEL AND STRICTURE OF URETER W/O HYDRONEPHROSIS (3) Obstructive uropathy Code(s): N13.9 - OBSTRUCTIVE AND REFLUX UROPATHY, UNSPECIFIED (4) Penile swelling Code(s): N48.89 - OTHER SPECIFIED DISORDERS OF PENIS (5) Urinary retention Code(s): R33.9 - RETENTION OF URINE, UNSPECIFIED (6) CKD (chronic kidney disease) Code(s): N18.9 - CHRONIC KIDNEY DISEASE, UNSPECIFIED (7) Heart failure Code(s): I50.9 - HEART FAILURE, UNSPECIFIED Qualifiers: Heart failure type: unspecified heart failure type Heart failure chronicity : unspecified heart failure chronicity (8) Hypertensive urgency Code(s): I16.0 - HYPERTENSIVE URGENCY (9) Pulmonary hypertension Code(s): I27.20 - PULMONARY HYPERTENSION, UNSPECIFIED (10) Mitral regurgitation Code(s): I34.0 - NONRHEUMATIC MITRAL (VALVE) INSUFFICIENCY Assessment/Plan IMP: Obstructive uropathy Acute renal failure, improving. Presumed non-ischemic cardiomyopathy with mildly reduced LV fxn secondary chronic HTN Hypertensive heart disease Pulmonary HTN Mitral regurgitation REC: 1. Improving renal fxn, and renal f/u. 2. Hypertension as improved, continue current Rx. Holding WHITNEY/ARB in setting ARF. Can try to initiate once creatinine stable. Would benefit from transition to Carvedilol or Toprol XL in the [facility] [place]. 3. Repeat echo showed mildly reduced EF, and mild MR (both improved from 2017). 4. Would repeat ischemic evaluation with a Lexiscan MIBI as outpatient. 5. Discontinue telemetry as now 48 hours with no arrhythmias and improved BP trend.
[2018-10-19] MEDS: NIFEdipine E.R. 30 MG TABLET (FP) PO SCH (09:00)
[2018-10-19] MEDS: LABETALOL HCL 100 MG TABLET (FP) PO SCH (09:00)
[2018-10-19] MEDS ORDERED: MAGNESIUM SULF 50% (8.12 MEQ/2 ML-1 GM VIAL) IVPB ONE (12:06)
--- NOTE | 2018-10-19 12:35 | DS ---
Physical Examination Vital Signs: Vital Signs Temperature 97.8 F 10/19/18 10:00 Pulse Rate 96 H 10/19/18 10:00 Respiratory Rate 20 10/19/18 10:00 Blood Pressure 162/98 10/19/18 10:00 O2 Sat by Pulse Oximetry (%) 99 10/19/18 09:00 Constitutional: Yes: No Distress, Calm Cardiovascular: Yes: Regular Rate and Rhythm Respiratory: Yes: CTA Bilaterally Gastrointestinal: Yes: Normal Bowel Sounds, Soft. No: Tenderness Edema: No Labs: CBC, BMP 10/17/18 05:30 10/19/18 07:10 Discharge Summary Reason For Visit: RETENTION OF URINE Current Active Problems Bilateral ureteral calculi (Acute) Bilateral ureteral obstruction (Acute) CHF (congestive heart failure) (Acute) Mitral regurgitation (Acute) Obstructive uropathy (Acute) Penile swelling (Acute) Pulmonary hypertension (Acute) Urinary retention (Acute) Hospital Course: Admitted for acute obstructive uropathy underwent B/L stent placement , nephrolithiasis, hydronephrosis Evaluated by Renal ,Cardiology and Urology Creatinine is 1.7 today Pt voided well after bailey dc today Potassium and Magnesium replaced As per Cardiology -- repeat ischemic evaluation with a Lexiscan MIBI as outpatient Echo shows EF 45-50% , mild LV systolic dysfunction Pt is clinically well does need Oxygen for home Will need to follow up with PMD. Cardiology and Urology -- will need lithotripsy electively as per Urology Condition: Stable - Instructions Referrals: Clint Nation MD [Primary Care Provider] - Arnoldo Lucero MD [Staff Physician] - Emil Jones MD [Staff Physician] - Burke Gregorio MD [Staff Physician] - Disposition: HOME - Home Medications Comprehensive Discharge Medication List: Ambulatory Orders Labetalol HCl 300 mg PO DAILY 10/16/18 Losartan Potassium [Cozaar] 100 mg PO DAILY 10/16/18 Nifedipine [Adalat cc] 30 mg PO DAILY 10/16/18
[2018-10-19] MEDS ORDERED: MAGNESIUM OXIDE 400 MG TABLET (FP) PO SCH (15:07)
--- NOTE | 2018-10-19 15:10 | PN ---
Progress Note, Physician History of Present Illness: Pt seen and examined at bedside. He is awake and alert. He tolerated voiding trial. - Current Medication List Current Medications: Active Medications Sodium Chloride (Normal Saline -) 1,000 mls @ 65 mls/hr IV ASDIR [facility]ENN[facility] Last Admin: 10/19/18 08:14 Dose: 65 mls/hr Labetalol HCl (Normodyne -) 300 mg PO DAILY [facility] Last Admin: 10/19/18 09:00 Dose: 300 mg Nifedipine (Procardia Xl -) 30 mg PO DAILY [facility] Last Admin: 10/19/18 09:00 Dose: 30 mg - Objective Vital Signs: Vital Signs Temperature 97.8 F 10/19/18 10:00 Pulse Rate 85 10/19/18 14:00 Respiratory Rate 20 10/19/18 10:00 Blood Pressure 102/63 10/19/18 14:00 O2 Sat by Pulse Oximetry (%) 96 10/19/18 12:55 Constitutional: Yes: Calm Eyes: Yes: Conjunctiva Clear HENT: Yes: Atraumatic Cardiovascular: Yes: S1, S2 Respiratory: Yes: CTA Bilaterally Gastrointestinal: Yes: Soft Genitourinary: Yes: WNL Musculoskeletal: Yes: WNL Edema: No Neurological: Yes: Oriented Psychiatric: Yes: Oriented Labs: CBC, BMP 10/17/18 05:30 10/19/18 07:10 INR, PTT INR 1.27 (0.83-1.09) H 10/16/18 20:12 Assessment/Plan Current Medications Generic Name Dose Route Start Last Admin Trade Name Freq PRN Reason Stop Dose Admin Sodium Chloride 1,000 mls @ 65 mls/hr 10/18/18 12:34 10/19/18 08:14 Normal Saline - IV 65 mls/hr ASDIR JENNIFER Administration Labetalol HCl 300 mg 10/17/18 10:00 10/19/18 09:00 Normodyne - PO 300 mg DAILY JENNIFER Administration Magnesium Oxide 400 mg 10/19/18 15:07 Mag-Ox - PO BID JENNIFER Nifedipine 30 mg 10/17/18 10:00 10/19/18 09:00 Procardia Xl - PO 30 mg DAILY JENNIFER Administration Impression 1. VILMA 2. obstructive uropathy 3. HTN 4. s/p bilateral ureteral stents 5. nephrolithiasis Plan - replace mag PO and IV - renal function is improving - cont fluids, can decrease rate - monitor for post obstructive diuresis - monitor BP
[2018-10-19 18:52] VITALS: BP 141/85; PULSE 91; TEMP 97.4
== END 2018-10-19 21:32 | disposition home or self-care (01) | DRG 660 ==
LOC: JER 12:53 → JERBED 15:58 → J4W 10-17 03:26
PROVIDERS: ADMIT Internal Medicine; ATTEND Internal Medicine
PROC: BT14ZZZ Fluoroscopy of Kidneys, Ureters and Bladder (ICD-10-PCS; 2018-10-16)
PROC: 0T788DZ Dilation of Bilateral Ureters with Intraluminal Device, Via Natural or Artificial Opening Endoscopic (ICD-10-PCS; principal; 2018-10-16 21:22)
DX: N13.2 Hydronephrosis with renal and ureteral calculous obstruction (principal); R18.8 Other ascites; I42.8 Other cardiomyopathies; I13.0 Hypertensive heart and chronic kidney disease with heart failure and stage 1 through stage 4 chronic kidney disease, or unspecified chronic kidney disease; R33.9 Retention of urine, unspecified; N17.9 Acute kidney failure, unspecified; N48.89 Other specified disorders of penis; I16.0 Hypertensive urgency; I27.20 Pulmonary hypertension, unspecified; I34.0 Nonrheumatic mitral (valve) insufficiency; N18.9 Chronic kidney disease, unspecified; I50.9 Heart failure, unspecified
CPT/HCPCS: 36415; 71045-TC-FY; 74018-TC-FY; 74176-TC; 76000-TC-FY; 80048; 80053; 81003; 81015; 82550; 82962; 83735; 85025; 85610; 85730; 86850; 86900; 86901; 87086; 93005; 93010; 93306-TC; 94760; 94761; 99283-25; J7030

== ENCOUNTER 2021-01-08 14:55 | Inpatient (IN) | payer OTHER ==
[2021-01-08] MEDS ORDERED: SODIUM CHLORIDE 1,000 ML IV STA (15:23)
[2021-01-08 16:13] LABS: BASO % 0.4 % (0-2.0); EOS % 0.4 % (0-4.5); HEMATOCRIT 43.8 % (35.4-49); HEMOGLOBIN 15.1 GM/dL (11.7-16.9); LYMPH % 12.4 % (8-40); MCH 32.3 pg (25.7-33.7); MCHC 34.4 g/dl (32.0-35.9); MEAN CELL VOLUME 93.8 fl (80-96); MEAN PLT VOLUME 8.8 fl (7.5-11.1); MONO % 6.1 % (3.8-10.2); NEUT % 80.7 % (42.8-82.8); PLATELET COUNT 211 K/MM3 (134-434); RBC 4.67 M/mm3 (4.00-5.60); RDW 13.2 % (11.9-15.9); WHITE BLOOD COUNT 12.8 K/mm3 (4.0-10.0)
[2021-01-08 16:30] LABS: CHLORIDE 95 mmol/L (98-107); SODIUM 132 mmol/L (136-145)
[2021-01-08 16:32] LABS: ANION GAP 14 MMOL/L (8-16); CALCIUM 9.1 mg/dL (8.5-10.1); CO2 22 mmol/L (21-32)
[2021-01-08 16:33] LABS: BLOOD UREA NITROGEN 64.9 mg/dL (7-18); GLUCOSE,RANDOM 127 mg/dL (74-106)
[2021-01-08 16:36] LABS: SGOT/AST 29 U/L (15-37); SGPT/ALT 41 U/L (13-61)
[2021-01-08 16:37] LABS: BILIRUBIN,TOTAL 0.8 mg/dL (0.2-1); TOT PROT 8.4 g/dl (6.4-8.2)
[2021-01-08 16:38] LABS: ALK PHOS 94 U/L (45-117)
[2021-01-08 16:40] LABS: CREATININE 7.8 mg/dL (0.55-1.3)
[2021-01-08 18:07] LABS: EPI CELLS 34 /uL (0-25.1); HYALINE CASTS 10 /uL (0-3.1); PH,URINE 5.5 (5.0-8.0); URINE APPEARANCE CLOUDY; URINE BACTERIA 452 /uL (0-1359); URINE BILIRUBIN NEGATIVE (NEGATIVE); URINE COLOR YELLOW; URINE GLUCOSE (UA) NEGATIVE (NEGATIVE); URINE KETONE NEGATIVE (NEGATIVE); URINE LEUK ESTERASE 2+ (NEGATIVE); URINE NITRITE NEGATIVE (NEGATIVE); URINE PROTEIN 2+ (NEGATIVE); URINE RBC 64 /uL (0-23.9); URINE UROBILINOGEN 0.2 mg/dL (0.2-1.0); URINE WBC 357 /uL (0-25.8)
[2021-01-08] MEDS ORDERED: LACTATED RINGERS SOLUTION 1000 ML INFUS.BAG IV ONE (19:10)
[2021-01-08] MEDS ORDERED: PROPOFOL 20 ML ONE (20:48)
[2021-01-08] MEDS ORDERED: DEXTROSE 5%-0.45% SALINE 1,000 ML IV SCH (21:30)
[2021-01-08] MEDS ORDERED: ONDANSETRON 4 MG/2 ML VIAL IVPUSH PRN (21:40)
[2021-01-08] MEDS ORDERED: oxyCODONE HCL 5 MG TABLET PO PRN (21:40)
[2021-01-09 00:23] VITALS: BMI 35.6
[2021-01-09 08:29] LABS: BASO % 0.1 % (0-2.0); HEMATOCRIT 40.1 % (35.4-49); HEMOGLOBIN 13.9 GM/dL (11.7-16.9); LYMPH % 11.2 % (8-40); MCH 32.4 pg (25.7-33.7); MCHC 34.7 g/dl (32.0-35.9); MEAN CELL VOLUME 93.2 fl (80-96); MEAN PLT VOLUME 8.5 fl (7.5-11.1); MONO % 2.8 % (3.8-10.2); NEUT % 85.9 % (42.8-82.8); PLATELET COUNT 233 K/MM3 (134-434); RBC 4.31 M/mm3 (4.00-5.60); RDW 12.7 % (11.9-15.9); WHITE BLOOD COUNT 8.7 K/mm3 (4.0-10.0)
[2021-01-09 08:51] LABS: CALCIUM 9.1 mg/dL (8.5-10.1)
[2021-01-09 08:52] LABS: BLOOD UREA NITROGEN 49.2 mg/dL (7-18)
[2021-01-09 08:55] LABS: CREATININE 3.9 mg/dL (0.55-1.3)
[2021-01-09] MEDS: NIFEdipine E.R. 30 MG TABLET PO SCH (14:03)
[2021-01-09] MEDS: LABETALOL HCL 100 MG TABLET (FP) PO SCH ×2 (14:03→21:28)
[2021-01-09] MEDS: LACTATED RINGERS SOLUTION 1,000 ML IV SCH ×2 (21:22→22:00)
[2021-01-10] MEDS: LABETALOL HCL 100 MG TABLET (FP) PO SCH ×3 (06:24→21:47)
[2021-01-10] MEDS: LACTATED RINGERS SOLUTION 1,000 ML IV SCH ×2 (06:26→21:39)
[2021-01-10 08:23] LABS: HEMATOCRIT 38.1 % (35.4-49); HEMOGLOBIN 13.2 GM/dL (11.7-16.9); MCH 32.6 pg (25.7-33.7); MCHC 34.6 g/dl (32.0-35.9); MEAN CELL VOLUME 94.3 fl (80-96); MEAN PLT VOLUME 8.5 fl (7.5-11.1); PLATELET COUNT 227 K/MM3 (134-434); RBC 4.04 M/mm3 (4.00-5.60); WHITE BLOOD COUNT 8.6 K/mm3 (4.0-10.0)
[2021-01-10 08:39] LABS: BLOOD UREA NITROGEN 34.7 mg/dL (7-18); CALCIUM 8.8 mg/dL (8.5-10.1)
[2021-01-10 08:42] LABS: CREATININE 1.6 mg/dL (0.55-1.3)
[2021-01-10 08:44] LABS: BILIRUBIN,TOTAL 0.5 mg/dL (0.2-1); TOT PROT 6.6 g/dl (6.4-8.2)
[2021-01-10 08:56] LABS: ALBUMIN 2.9 g/dl (3.4-5.0)
[2021-01-10] MEDS: NIFEdipine E.R. 30 MG TABLET PO SCH (11:34)
[2021-01-11] MEDS: LABETALOL HCL 100 MG TABLET (FP) PO SCH ×2 (05:46→13:45)
[2021-01-11 08:34] LABS: ALBUMIN 3.2 g/dl (3.4-5.0); BLOOD UREA NITROGEN 21.6 mg/dL (7-18); CALCIUM 9.1 mg/dL (8.5-10.1)
[2021-01-11 08:39] LABS: BILIRUBIN,TOTAL 0.5 mg/dL (0.2-1); TOT PROT 6.9 g/dl (6.4-8.2)
[2021-01-11] MEDS: NIFEdipine E.R. 30 MG TABLET PO SCH (10:18)
[2021-01-11 14:39] VITALS: BP 150/83; PULSE 80; TEMP 98.5
== END 2021-01-11 17:18 | disposition home or self-care (01) | DRG 661 ==
LOC: JER 14:55 → J6S 19:33
PROVIDERS: ADMIT Urology; ATTEND Urology
PROC: 0T9B80Z Drainage of Bladder with Drainage Device, Via Natural or Artificial Opening Endoscopic (ICD-10-PCS; 2021-01-08)
PROC: 0T788DZ Dilation of Bilateral Ureters with Intraluminal Device, Via Natural or Artificial Opening Endoscopic (ICD-10-PCS; principal; 2021-01-08 20:11)
PROC: BT14ZZZ Fluoroscopy of Kidneys, Ureters and Bladder (ICD-10-PCS; 2021-01-08 20:11)
DX: N13.2 Hydronephrosis with renal and ureteral calculous obstruction (principal); R33.9 Retention of urine, unspecified; N17.9 Acute kidney failure, unspecified; I10 Essential (primary) hypertension; E66.9 Obesity, unspecified; Z68.35 Body mass index [BMI] 35.0-35.9, adult; R31.9 Hematuria, unspecified
CPT/HCPCS: 36415; 71045-TC-FY; 74176-TC; 80048; 80053; 81003; 85025; 85027; 87086; 93005; 93010; 94760; 97116-GP; 97161-GP; 99285-25; C9803; U0003; U0005

== ENCOUNTER 2021-02-14 05:13 | Day surgery (SDC) | payer OTHER ==
[2021-02-13 17:21] VITALS: BMI 28.3
[2021-02-14] MEDS ORDERED: PROPOFOL 20 ML ONE (14:06)
[2021-02-14] MEDS ORDERED: ACETAMINOPHEN 1000 MG/100 ML VIAL (NON FORMULARY) IVPB ONE (14:06)
[2021-02-14] MEDS ORDERED: MIDAZOLAM HCL 2 MG/2 ML SINGLE DOSE VIAL ONE (14:06)
[2021-02-14] MEDS ORDERED: IBUPROFEN 800 MG/8 ML IJ IVPB SCH (14:15)
[2021-02-14] MEDS ORDERED: DEXTROSE 5%-0.45% SALINE 1,000 ML IV SCH (14:15)
[2021-02-14] MEDS ORDERED: CLINDAMYCIN 600 MG PREMIX BAG IVPB ONE (14:29)
[2021-02-14] MEDS ORDERED: SUCCINYLCHOLINE CHLORIDE 200 MG/10 ML SYRINGE ONE (14:52)
[2021-02-14] MEDS ORDERED: ACETAMINOPHEN INJECTION 100 ML IVPB ONE (15:30)
[2021-02-14] MEDS ORDERED: ONDANSETRON 4 MG/2 ML VIAL IVPUSH PRN (15:57)
[2021-02-14] MEDS ORDERED: oxyCODONE HCL 5 MG TABLET PO PRN ×2 (15:57)
[2021-02-14] MEDS ORDERED: LACTATED RINGERS SOLUTION 1,000 ML IV SCH (16:00)
[2021-02-14 17:25] VITALS: BP 140/79; PULSE 67; TEMP 97.7
== END 2021-02-14 17:35 | disposition home or self-care (01) ==
LOC: JASU-SURG 05:13
PROVIDERS: ATTEND Urology
PROC: 0T788DZ Dilation of Bilateral Ureters with Intraluminal Device, Via Natural or Artificial Opening Endoscopic (ICD-10-PCS; 2021-02-14)
PROC: 0TC48ZZ Extirpation of Matter from Left Kidney Pelvis, Via Natural or Artificial Opening Endoscopic (ICD-10-PCS; principal; 2021-02-14 14:00)
PROC: 0TC68ZZ Extirpation of Matter from Right Ureter, Via Natural or Artificial Opening Endoscopic (ICD-10-PCS; 2021-02-14 14:00)
PROC: 0TC78ZZ Extirpation of Matter from Left Ureter, Via Natural or Artificial Opening Endoscopic (ICD-10-PCS; 2021-02-14 14:00)
DX: N20.1 Calculus of ureter (principal); N20.0 Calculus of kidney
CPT/HCPCS: 76000-TC-FY; 88300-TC; 94760; J0131

== ENCOUNTER 2021-02-26 10:50 | Inpatient (IN) | payer OTHER ==
[2021-02-26 12:58] LABS: BASO % 0.5 % (0-2.0); EOS % 0.2 % (0-4.5); HEMOGLOBIN 12.4 GM/dL (11.7-16.9); LYMPH % 15.1 % (8-40); MCH 31.6 pg (25.7-33.7); MCHC 34.6 g/dl (32.0-35.9); MEAN CELL VOLUME 91.5 fl (80-96); MEAN PLT VOLUME 7.9 fl (7.5-11.1); MONO % 4.9 % (3.8-10.2); NEUT % 79.3 % (42.8-82.8); PLATELET COUNT 217 10^3/uL (134-434); RBC 3.93 M/mm3 (4.00-5.60); RDW 13.2 % (11.9-15.9)
[2021-02-26 13:08] LABS: CHLORIDE 102 mmol/L (98-107); SODIUM 134 mmol/L (136-145)
[2021-02-26 13:10] LABS: ALBUMIN 3.8 g/dl (3.4-5.0); ANION GAP 15 MMOL/L (8-16); CALCIUM 8.9 mg/dL (8.5-10.1); CO2 17 mmol/L (21-32); GLUCOSE,RANDOM 100 mg/dL (74-106)
[2021-02-26 13:13] LABS: PHOSPHOROUS 6.3 mg/dL (2.5-4.9); SGOT/AST 14 U/L (15-37); SGPT/ALT 21 U/L (13-61)
[2021-02-26 13:14] LABS: TOT PROT 7.6 g/dl (6.4-8.2)
[2021-02-26 13:16] LABS: BILIRUBIN,TOTAL 0.4 mg/dL (0.2-1)
[2021-02-26 13:17] LABS: ALK PHOS 90 U/L (45-117)
[2021-02-26 14:28] LABS: CREATININE 11.8 mg/dL (0.55-1.3)
[2021-02-26 14:55] LABS: PROTHROMBIN TIME (PATIENT) 12.3 SEC (9.7-13.0)
[2021-02-26 14:58] LABS: ACTIVATED PTT 30.5 SECONDS (25.2-36.5)
[2021-02-26] MEDS ORDERED: PROPOFOL 20 ML ONE ×2 (17:29)
[2021-02-26] MEDS ORDERED: DEXAMETHASONE SOD PHOSPHATE 4 MG/1 ML VIAL ONE (17:29)
[2021-02-26] MEDS ORDERED: MIDAZOLAM HCL 2 MG/2 ML SINGLE DOSE VIAL ONE (17:29)
[2021-02-26] MEDS ORDERED: LIDOCAINE HCL/PF 2% SDV 5ML VIAL ONE (17:29)
[2021-02-26] MEDS ORDERED: ceFAZolin SODIUM 1 GM VIAL IVPB ONE (18:10)
[2021-02-26] MEDS ORDERED: oxyCODONE HCL 5 MG TABLET PO PRN (18:40)
[2021-02-26] MEDS ORDERED: ONDANSETRON 4 MG/2 ML VIAL IVPUSH PRN (18:40)
[2021-02-26] MEDS ORDERED: PROMETHAZINE HCL 25 MG/1 ML VIAL IVPUSH PRN (18:40)
[2021-02-26 22:42] VITALS: BMI 31.5
[2021-02-27] MEDS: NEBIVOLOL 10 MG TABLET (FP) PO SCH (10:13)
[2021-02-27] MEDS: NIFEdipine E.R. 30 MG TABLET PO SCH (10:13)
[2021-02-27 11:48] LABS: CALCIUM 9.1 mg/dL (8.5-10.1)
[2021-02-27 11:49] LABS: BLOOD UREA NITROGEN 67.2 mg/dL (7-18)
[2021-02-27 11:51] LABS: CREATININE 6.8 mg/dL (0.55-1.3)
[2021-02-27] MEDS ORDERED: SODIUM CHLORIDE 0.45% 1,000 ML IV SCH (13:00)
[2021-02-27] MEDS ORDERED: POTASSIUM CHLORIDE TABS 20 MEQ TABLET.ER (FP) PO ONE (13:15)
[2021-02-27] MEDS: HEPARIN NA (PORCINE) 5,000 UNITS/ML 1ML VIAL SQ SCH (22:05)
[2021-02-28] MEDS ORDERED: ASCORBIC ACID 500 MG TABLET (FP) PO SCH (10:00)
[2021-02-28] MEDS: NIFEdipine E.R. 30 MG TABLET PO SCH (10:30)
[2021-02-28] MEDS: HEPARIN NA (PORCINE) 5,000 UNITS/ML 1ML VIAL SQ SCH (10:30)
[2021-02-28] MEDS: NEBIVOLOL 10 MG TABLET (FP) PO SCH (10:33)
[2021-02-28 12:20] LABS: BLOOD UREA NITROGEN 62.6 mg/dL (7-18); CALCIUM 9.3 mg/dL (8.5-10.1)
[2021-02-28 12:21] LABS: ALBUMIN 3.6 g/dl (3.4-5.0)
[2021-02-28 12:24] LABS: CREATININE 3.3 mg/dL (0.55-1.3)
[2021-02-28 12:26] LABS: BILIRUBIN,TOTAL 0.3 mg/dL (0.2-1); TOT PROT 7.8 g/dl (6.4-8.2)
[2021-02-28 14:21] VITALS: BP 152/93; PULSE 73; TEMP 98.6
== END 2021-02-28 18:58 | disposition home or self-care (01) | DRG 660 ==
LOC: JER 10:50 → JERBED 14:49 → J6S 19:47
PROVIDERS: ADMIT Internal Medicine; ATTEND Internal Medicine
PROC: 0T788DZ Dilation of Bilateral Ureters with Intraluminal Device, Via Natural or Artificial Opening Endoscopic (ICD-10-PCS; principal; 2021-02-26 15:00)
PROC: 0TJB8ZZ Inspection of Bladder, Via Natural or Artificial Opening Endoscopic (ICD-10-PCS; 2021-02-26 15:00)
DX: N20.1 Calculus of ureter (principal); N17.9 Acute kidney failure, unspecified; I42.8 Other cardiomyopathies; E66.9 Obesity, unspecified; Z68.31 Body mass index [BMI] 31.0-31.9, adult; N13.9 Obstructive and reflux uropathy, unspecified; I10 Essential (primary) hypertension; R01.1 Cardiac murmur, unspecified
CPT/HCPCS: 36415; 74176-TC; 76000-TC-FY; 76775-TC; 76856-TC; 80048; 80053; 83735; 84100; 84484; 85025; 85610; 85730; 86850; 86900; 86901; 93005; 93010; 94760; 99285-25; C9803; J1644; U0003; U0005

== ENCOUNTER 2022-07-26 09:55 | Emergency (ER) | payer OTHER ==
[2022-07-26 10:02] VITALS: BMI 28.3
[2022-07-26 12:10] LABS: BASO % 0.3 % (0-2.0); EOS % 0.5 % (0-4.5); HEMATOCRIT 44.7 % (35.4-49); HEMOGLOBIN 15.1 GM/dL (11.7-16.9); LYMPH % 19.1 % (8-40); MCH 31.7 pg (25.7-33.7); MCHC 33.8 g/dl (32.0-35.9); MEAN PLT VOLUME 8.6 fl (7.5-11.1); MONO % 6.7 % (3.8-10.2); NEUT % 73.4 % (42.8-82.8); PLATELET COUNT 229 10^3/uL (134-434); RBC 4.76 M/mm3 (4.00-5.60); RDW 13.3 % (11.9-15.9); WHITE BLOOD COUNT 12.8 K/mm3 (4.0-10.0)
[2022-07-26 12:29] LABS: BLOOD UREA NITROGEN 28.9 mg/dL (7-18); CALCIUM 9.3 mg/dL (8.5-10.1)
[2022-07-26 12:30] LABS: ALBUMIN 3.4 g/dl (3.4-5.0)
[2022-07-26 12:33] LABS: CREATININE 1.7 mg/dL (0.55-1.3)
[2022-07-26 12:34] LABS: BILIRUBIN,TOTAL 0.5 mg/dL (0.2-1); TOT PROT 7.7 g/dl (6.4-8.2)
[2022-07-26 15:02] VITALS: BP 152/86; PULSE 79; RESP 16; TEMP 98.4
== END 2022-07-26 15:00 | disposition short-term general hospital (02) ==
LOC: JERFT 09:55 → JER 09:55
DX: H00.036 Abscess of eyelid left eye, unspecified eyelid (principal)
CPT/HCPCS: 36415; 80053; 85025; 86140; 99285-25; C9803-CS; U0003; U0005